=== PATIENT | male | born 1980 | race Caucasian/White ===

== ENCOUNTER 2018-08-02 10:16 | Emergency (ER) | payer OTHER ==
[2018-08-02 10:21] VITALS: RESP 18; TEMP 98.8
[2018-08-02] MEDS ORDERED: SODIUM CHLORIDE 0.9% 1,000 ML IV ONE (10:50)
[2018-08-02] MEDS ORDERED: DOCUSATE 100 MG CAP PO STA (10:51)
[2018-08-02] MEDS ORDERED: HYDROCORTISONE SUPPOSITORY 25 MG SUPP RECTAL STA (10:51)
[2018-08-02 11:14] LABS: Basophils % (A) 1 %; Eosinophils # (A) 0.1 k/uL (0-0.7); Eosinophils % (A) 2 %; HGB 12.4 gm/dL (13.0-17.5); Hypochromasia Slight; Lymphocytes # (A) 0.8 k/uL (1.0-4.8); Lymphocytes % (A) 10 %; MCH 24.7 pg (25.0-35.0); MCV 79.6 fL (80.0-100.0); Mean Platelet Volume 9.3; Monocytes # (A) 0.6 k/uL (0-1.0); Monocytes % (A) 7 %; Neutrophils # (A) 6.1 k/uL (1.3-7.7); Neutrophils % (A) 79 %; Platelet Count 219 k/uL (150-450); RBC 5.02 m/uL (4.30-5.90); RDW 12.9 % (11.5-15.5); WBC 7.8 k/uL (3.8-10.6)
[2018-08-02 11:21] LABS: ALT 47 U/L (21-72); AST 43 U/L (17-59); Albumin 4.6 g/dL (3.5-5.0); Alkaline Phosphatase 116 U/L (38-126); Anion Gap 12 mmol/L; Blood Urea Nitrogen 14 mg/dL (9-20); Carbon Dioxide 26 mmol/L (22-30); Chloride 102 mmol/L (98-107); Glucose 115 mg/dL (74-99); Sodium 140 mmol/L (137-145); Total Bilirubin 0.7 mg/dL (0.2-1.3); Total Protein 7.9 g/dL (6.3-8.2)
--- NOTE | 2018-08-02 11:49 | XR ---
EXAMINATION TYPE: XR KUB DATE OF EXAM: 08/02/2018 CLINICAL DATA: 38-year-old male with constipation, [facility] COMPARISON: None FINDINGS: Lung bases are clear. No evidence for free intraperitoneal air. No dilated small bowel or air-fluid levels. Scattered air and stool seen throughout the colon extendi ng distally into the rectum. Scattered mild to moderate stool. No suspicious calcifications identified. IMPRESSION: Scattered mild to moderate stool. No evidence of bowel obstruction or free intraperitoneal air.
--- NOTE | 2018-08-02 12:20 | ED ---
General Adult HPI - General Chief complaint: GI Bleed Stated complaint: RECTAL BLEEDING AND PAIN Time Seen by Provider: 08/02/18 10:21 Source: patient Mode of arrival: ambulatory Limitations: no limitations - History of Present Illness Initial comments: 38-year-old male with no past medical history presenting today for chief complaint of rectal bleeding and pain. Patient states he had rectal pain with bowel movements of January with mild bleeding. Patient states recently the pain has increased. Patient states at times he passed this clot. He states he has significant burning and pain with each bowel movement. Patient states this has caused him to be hesitant to have a bowel movement and experience constipation. Patient denies any urinary retention, dysuria or urgency. T or hematuria. Patient denies any fever or chills night sweats. Patient denies any abdominal pain. Patient denies history of chronc/UC. Remaining review of systems negative, Patient denies any recent cold intolerance, shortness of breath, chest pain, back pain, nausea or vomiting, numbness or tingling, diarrhea, headaches or visual changes, or any other complaints. - Related Data Previous Rx's Medication Instructions Recorded Docusate [Colace] 100 mg PO DAILY 20 Days #20 capsule 08/02/18 Phenylephrine HCl/[place] Butter 1 each RC DAILY PRN 20 Days #20 08/02/18 [Preparation H Suppository] supp.rect Psyllium Husk 100% [Metamucil 6 gm PO DAILY PRN 10 Days #10 08/02/18 Packet] packet Allergies Allergy/AdvReac Type Severity Reaction Status Date / Time codeine AdvReac Nausea & Verified 08/02/18 10:40 Vomiting Review of Systems ROS Statement: Those systems with pertinent positive or pertinent negative responses have been documented in the HPI. ROS Other: All systems not noted in ROS Statement are negative. Past Medical History Past Medical History: No Reported History History of Any Multi-Drug Resistant Organisms: None Reported Past Surgical History: Orthopedic Surgery Additional Past Surgical History / Comment(s): right foot surgery, left hand surgery Past Psychological History: No Psychological Hx Reported Smoking Status: Never smoker Past Alcohol Use History: Daily Past Drug Use History: None Reported General Exam - General Exam Comments Initial Comments: General: The patient is awake and alert, in no distress, and does not appear acutely ill. Eye: Pupils are equal, round and reactive to light, extra-ocular movements are intact. No nystagmus. There is normal conjunctiva bilaterally. No signs of icterus. Ears, nose, mouth and throat: There are moist mucous membranes and no oral lesions. Neck: The neck is supple, there is no tenderness or JVD. Cardiovascular: There is a regular rate and rhythm. No murmur, rub or gallop is appreciated. Respiratory: Lungs are clear to auscultation, respirations are non-labored, breath sounds are equal. No wheezes, stridor, rales, or rhonchi. Gastrointestinal: Soft, non-distended, non-tender abdomen without masses or organomegaly noted. There is no rebound or guarding present. No CVA tenderness. Bowel sounds are unremarkable. Very large external and internal hemorrhoids palpable on examination. Tender to palpation. No prolapsed hemorrhoids. No glynn blood. Musculoskeletal: Normal ROM, no tenderness. Strength 5/5. Sensation intact. Pulses equal bilaterally 2+. Neurological: A&O x 3. CN II-XII intact, There are no obvious motor or sensory deficits. Coordination appears grossly intact. Speech is normal. Skin: Skin is warm and dry and no rashes or lesions are noted. Psychiatric: Cooperative, appropriate mood & affect, normal judgment. Limitations: no limitations Course Vital Signs 08/02/18 08/02/18 10:18 12:46 Temperature 98.8 F 98.8 F Pulse Rate 118 H 91 Respiratory 18 18 Rate Blood Pressure 146/85 134/76 O2 Sat by Pulse 98 98 Oximetry Medical Decision Making - Medical Decision Making Physical exam revealed hemorrhoids. Patient given symptomatically treatment in the emergency department, he states this helped alleviate symptoms. Patient hemoglobin stable. No glynn blood on physical examination. No fecal impaction/obstruction on KUB. I discussed case with attending provider Dr. Jacinto at this time for patient is stable for discharge with general surgery follow-up outpatient. Patient is agreeable plan denies questions at this time. Patient discharged. - Lab Data Result diagrams: 08/02/18 10:55 08/02/18 10:55 Lab Results 08/02/18 08/02/18 Range/Units 10:55 10:55 WBC 7.8 (3.8-10.6) k/uL RBC 5.02 (4.30-5.90) m/uL Hgb 12.4 L (13.0-17.5) gm/dL Hct 40.0 (39.0-53.0) % MCV 79.6 L (80.0-100.0) fL MCH 24.7 L (25.0-35.0) pg MCHC 31.0 (31.0-37.0) g/dL RDW 12.9 (11.5-15.5) % Plt Count 219 (150-450) k/uL Neutrophils % 79 % Lymphocytes % 10 % Monocytes % 7 % Eosinophils % 2 % Basophils % 1 % Neutrophils # 6.1 (1.3-7.7) k/uL Lymphocytes # 0.8 L (1.0-4.8) k/uL Monocytes # 0.6 (0-1.0) k/uL Eosinophils # 0.1 (0-0.7) k/uL Basophils # 0.0 (0-0.2) k/uL Hypochromasia Slight Sodium 140 (137-145) mmol/L Potassium 5.0 (3.5-5.1) mmol/L Chloride 102 (98-107) mmol/L Carbon Dioxide 26 (22-30) mmol/L Anion Gap 12 mmol/L BUN 14 (9-20) mg/dL Creatinine 0.60 L (0.66-1.25) mg/dL Est GFR (CKD-EPI)AfAm >90 (>60 ml/min/1.73 sqM) Est GFR (CKD-EPI)NonAf >90 (>60 ml/min/1.73 sqM) Glucose 115 H (74-99) mg/dL Calcium 10.0 (8.4-10.2) mg/dL Total Bilirubin 0.7 (0.2-1.3) mg/dL AST 43 (17-59) U/L ALT 47 (21-72) U/L Alkaline Phosphatase 116 (38-126) U/L Total Protein 7.9 (6.3-8.2) g/dL Albumin 4.6 (3.5-5.0) g/dL Disposition Clinical Impression: Hemorrhoids Disposition: HOME SELF-CARE Condition: Good Instructions (If sedation given, give patient instructions): Hemorrhoids (ED) Additional Instructions: Please use medication as discussed, use phsyillum only 1-2 days a week as discussed, docusate daily. Please follow-up with family doctor in the next 2 days for repeat CBC, please follow-up with Gen. surgery as discussed within the next week. Please return to emergency room if the symptoms increase or worsen or for any other concerns. Prescriptions: Docusate [Colace] 100 mg PO DAILY 20 Days #20 capsule Psyllium Husk 100% [Metamucil Packet] 6 gm PO DAILY PRN 10 Days #10 packet PRN Reason: Constipation Phenylephrine HCl/[place] Butter [Preparation H Suppository] 1 each RC DAILY PRN 20 Days #20 supp.rect PRN Reason: Pain Is patient prescribed a controlled substance at d/c from ED?: No Referrals: Eric Montgomery DO [Primary Care Provider] - 1-2 days Lee Arzate MD [Medical Doctor] - 1-2 days Time of Disposition: 12:17
[2018-08-02 12:49] VITALS: BP 134/76; PULSE 91
== END 2018-08-02 12:46 | disposition home or self-care (01) ==
LOC: EC 10:16
DX: K64.4 Residual hemorrhoidal skin tags (principal); K64.8 Other hemorrhoids; Z88.5 Allergy status to narcotic agent
CPT/HCPCS: 36415; 74018; 80053; 85025; 96360; 96361; 99283

== ENCOUNTER 2018-08-06 10:24 | Inpatient (IN) | payer OTHER ==
--- NOTE | 2018-08-06 11:07 | ED ---
General Adult HPI - General Chief complaint: Skin/Abscess/Foreign Body Stated complaint: rectal bleeding Time Seen by Provider: 08/06/18 11:07 Source: patient, family Mode of arrival: ambulatory Limitations: no limitations - History of Present Illness Initial comments: The patient is a 38-year-old male who presents to the emergency department with complaint of rectal bleeding. He was seen in the emergency department several days ago for similar. He was diagnosed with hemorrhoids and sent home with Preparation H suppositories and a stool softener. States he's been taking the medications at home however his symptoms haven't improved. He admits he has had more bleeding with the rectal suppositories. His bleeding has gotten heavier. It is bright red with clots. It is present within the toilet bowl as well as when he wipes. Admits that the blood loss is making him feel lightheaded. He admits to significant rectal pain. He is hesitent to have a bowel movement as it does hurt significantly. He denies any melanotic stools. No report of diarrhea or constipation. No history of similar in the past. Denies history of ulcerative colitis or Crohn's disease in family members. He denies any medical history. No report of any fevers or chills. Denies any abdominal pain. Admits to suprapubic fullness. No changes in his urination to include dysuria, hematuria or difficulty voiding. No penile discharge or concern for sexually transmitted infections. He denies any weight loss. No early satiety. History of peptic ulcer disease. There are no other alleviating, precipitating or modifying factors. - Related Data Home Medications Medication Instructions Recorded Confirmed Phenylephrine HCl/[place] Butter 1 supp RECTAL DAILY PRN 08/06/18 08/06/18 [Preparation H Suppository] Previous Rx's Medication Instructions Recorded Docusate [Colace] 100 mg PO DAILY 20 Days #20 capsule 08/02/18 Psyllium Husk 100% [Metamucil 6 gm PO DAILY PRN 10 Days #10 08/02/18 Packet] packet Allergies Allergy/AdvReac Type Severity Reaction Status Date / Time codeine AdvReac Nausea & Verified 08/06/18 10:55 Vomiting Review of Systems ROS Statement: Those systems with pertinent positive or pertinent negative responses have been documented in the HPI. ROS Other: All systems not noted in ROS Statement are negative. Past Medical History Past Medical History: No Reported History History of Any Multi-Drug Resistant Organisms: None Reported Past Surgical History: Orthopedic Surgery Additional Past Surgical History / Comment(s): right foot surgery, left hand surgery Past Psychological History: No Psychological Hx Reported Smoking Status: Never smoker Past Alcohol Use History: Daily Past Drug Use History: None Reported General Exam Limitations: no limitations General appearance: alert, in no apparent distress Head exam: Present: atraumatic, normocephalic, normal inspection Eye exam: Present: normal appearance, PERRL, EOMI. Absent: scleral icterus, conjunctival injection, periorbital swelling Pupils: Present: normal accommodation ENT exam: Present: normal exam, mucous membranes moist Neck exam: Present: normal inspection. Absent: tenderness, meningismus, lymphadenopathy Respiratory exam: Present: normal lung sounds bilaterally. Absent: respiratory distress, wheezes, rales, rhonchi, stridor Cardiovascular Exam: Present: regular rate, normal rhythm, normal heart sounds. Absent: systolic murmur, diastolic murmur, rubs, gallop, clicks GI/Abdominal exam: Present: soft, tenderness, normal bowel sounds, other (Mild tenderness in the suprapubic region) Rectal exam: Present: normal rectal tone, heme (+) stool, bloody stool, hemorrhoids, tenderness. Absent: fecal impaction exam: Present: normal inspection Extremities exam: Present: normal inspection, full ROM, normal capillary refill. Absent: tenderness, pedal edema, joint swelling, calf tenderness Back exam: Present: normal inspection Neurological exam: Present: alert, oriented X3, CN II-XII intact Psychiatric exam: Present: normal affect, normal mood Skin exam: Present: warm, dry, intact, normal color. Absent: rash Course Vital Signs 08/06/18 08/06/18 08/06/18 10:33 12:30 14:20 Temperature 98.2 F Pulse Rate 104 H 88 96 Respiratory 18 16 16 Rate Blood Pressure 138/85 126/87 141/92 O2 Sat by Pulse 100 99 100 Oximetry Medical Decision Making - Medical Decision Making The patient was seen by myself. I did obtain IV access. He was offered something for pain control however he refused. Rectal exam is performed which demonstrates no signs of external hemorrhoids. No perirectal abscess identifie d. I did recommend repeat laboratory studies. I also recommended CT of the patient's abdomen and pelvis. Upon return of the results I did discuss them with the patient and his significant other at bedside. He did have a drop in his hemoglobin. The CAT scan of his abdomen and pelvis reveals a large rectosigmoid mass with liver metastasis. I did recommend admission to the hospital for evaluation by a surgeon. Patient did agree to this. Patient was admitted to Dr. Knight. I did call discuss case with him and he did accept admission. I consulted Dr. Arzate. The patient remained in stable condition awaiting transport to floor. - Differential Diagnosis Rectosigmoid mass. Liver lesions. Hematochezia - Lab Data Result diagrams: 08/06/18 20:23 08/06/18 11:40 Lab Results 08/06/18 08/06/18 08/06/18 Range/Units 11:29 11:40 11:40 WBC 6.0 (3.8-10.6) k/uL RBC 4.65 (4.30-5.90) m/uL Hgb 11.6 L (13.0-17.5) gm/dL Hct 37.2 L (39.0-53.0) % MCV 80.0 (80.0-100.0) fL MCH 25.0 (25.0-35.0) pg MCHC 31.3 (31.0-37.0) g/dL RDW 12.5 (11.5-15.5) % Plt Count 351 (150-450) k/uL Neutrophils % 74 % Lymphocytes % 12 % Monocytes % 8 % Eosinophils % 4 % Basophils % 1 % Neutrophils # 4.4 (1.3-7.7) k/uL Lymphocytes # 0.7 L (1.0-4.8) k/uL Monocytes # 0.5 (0-1.0) k/uL Eosinophils # 0.2 (0-0.7) k/uL Basophils # 0.0 (0-0.2) k/uL Hypochromasia Marked Poikilocytosis Slight PT 9.9 (9.0-12.0) sec INR 0.9 (<1.2) APTT 25.7 (22.0-30.0) sec Sodium (137-145) mmol/L Potassium (3.5-5.1) mmol/L Chloride (98-107) mmol/L Carbon Dioxide (22-30) mmol/L Anion Gap mmol/L BUN (9-20) mg/dL Creatinine (0.66-1.25) mg/dL Est GFR (CKD-EPI)AfAm (>60 ml/min/1.73 sqM) Est GFR (CKD-EPI)NonAf (>60 ml/min/1.73 sqM) Glucose (74-99) mg/dL Calcium (8.4-10.2) mg/dL Total Bilirubin (0.2-1.3) mg/dL AST (17-59) U/L ALT (21-72) U/L Alkaline Phosphatase (38-126) U/L Total Protein (6.3-8.2) g/dL Albumin (3.5-5.0) g/dL Urine Color Urine Appearance (Clear) Urine pH (5.0-8.0) Ur Specific [place] (1.001-1.035) Urine Protein (Negative) Urine Glucose (UA) (Negative) Urine Ketones (Negative) Urine Blood (Negative) Urine Nitrite (Negative) Urine Bilirubin (Negative) Urine Urobilinogen (<2.0) mg/dL Ur Leukocyte Esterase (Negative) Stool Occult Blood Positive (Negative) 08/06/18 08/06/18 Range/Units 11:40 11:40 WBC (3.8-10.6) k/uL RBC (4.30-5.90) m/uL Hgb (13.0-17.5) gm/dL Hct (39.0-53.0) % MCV (80.0-100.0) fL MCH (25.0-35.0) pg MCHC (31.0-37.0) g/dL RDW (11.5-15.5) % Plt Count (150-450) k/uL Neutrophils % % Lymphocytes % % Monocytes % % Eosinophils % % Basophils % % Neutrophils # (1.3-7.7) k/uL Lymphocytes # (1.0-4.8) k/uL Monocytes # (0-1.0) k/uL Eosinophils # (0-0.7) k/uL Basophils # (0-0.2) k/uL Hypochromasia Poikilocytosis PT (9.0-12.0) sec INR (<1.2) APTT (22.0-30.0) sec Sodium 138 (137-145) mmol/L Potassium 4.6 (3.5-5.1) mmol/L Chloride 103 (98-107) mmol/L Carbon Dioxide 26 (22-30) mmol/L Anion Gap 9 mmol/L BUN 12 (9-20) mg/dL Creatinine 0.59 L (0.66-1.25) mg/dL Est GFR (CKD-EPI)AfAm >90 (>60 ml/min/1.73 sqM) Est GFR (CKD-EPI)NonAf >90 (>60 ml/min/1.73 sqM) Glucose 111 H (74-99) mg/dL Calcium 9.5 (8.4-10.2) mg/dL Total Bilirubin 0.5 (0.2-1.3) mg/dL AST 23 (17-59) U/L ALT 40 (21-72) U/L Alkaline Phosphatase 109 (38-126) U/L Total Protein 6.9 (6.3-8.2) g/dL Albumin 4.1 (3.5-5.0) g/dL Urine Color Yellow Urine Appearance Clear (Clear) Urine pH 6.5 (5.0-8.0) Ur Specific [place] 1.014 (1.001-1.035) Urine Protein Negative (Negative) Urine Glucose (UA) Negative (Negative) Urine Ketones Negative (Negative) Urine Blood Negative (Negative) Urine Nitrite Negative (Negative) Urine Bilirubin Negative (Negative) Urine Urobilinogen <2.0 (<2.0) mg/dL Ur Leukocyte Esterase Negative (Negative) Stool Occult Blood (Negative) - Radiology Data Radiology results: report reviewed CT of the abdomen and pelvis demonstrates a large rectosigmoid mass with liver lesions concerning for metastasis Disposition Clinical Impression: Hematochezia Disposition: ADMITTED IP TO THIS [facility] Condition: Stable Is patient prescribed a controlled substance at d/c from ED?: No Decision to Admit Reason: Admit from EC Decision Date: 08/06/18 Decision Time: 13:00
[2018-08-06 12:10] LABS: ALT 40 U/L (21-72); AST 23 U/L (17-59); Albumin 4.1 g/dL (3.5-5.0); Alkaline Phosphatase 109 U/L (38-126); Anion Gap 9 mmol/L; Blood Urea Nitrogen 12 mg/dL (9-20); Calcium 9.5 mg/dL (8.4-10.2); Carbon Dioxide 26 mmol/L (22-30); Chloride 103 mmol/L (98-107); Glucose 111 mg/dL (74-99); Potassium 4.6 mmol/L (3.5-5.1); Sodium 138 mmol/L (137-145); Total Bilirubin 0.5 mg/dL (0.2-1.3); Total Protein 6.9 g/dL (6.3-8.2)
[2018-08-06 12:12] LABS: Basophils % (A) 1 %; Eosinophils # (A) 0.2 k/uL (0-0.7); Eosinophils % (A) 4 %; HCT 37.2 % (39.0-53.0); HGB 11.6 gm/dL (13.0-17.5); Hypochromasia Marked; Lymphocytes # (A) 0.7 k/uL (1.0-4.8); Lymphocytes % (A) 12 %; MCHC 31.3 g/dL (31.0-37.0); Mean Platelet Volume 8.1; Monocytes # (A) 0.5 k/uL (0-1.0); Monocytes % (A) 8 %; Neutrophils # (A) 4.4 k/uL (1.3-7.7); Neutrophils % (A) 74 %; Platelet Count 351 k/uL (150-450); Poikilocytosis Slight; RBC 4.65 m/uL (4.30-5.90); RDW 12.5 % (11.5-15.5)
[2018-08-06 12:20] LABS: INR 0.9 (<1.2); Partial Thromboplastin Time 25.7 sec (22.0-30.0); Prothrombin Time 9.9 sec (9.0-12.0)
[2018-08-06 12:30] LABS: Appearance,Urine Clear (Clear); Bilirubin,Urine Negative (Negative); Blood,Urine Negative (Negative); Color,Urine Yellow; Glucose,Urine (UA) Negative (Negative); Ketones,Urine Negative (Negative); Leukocyte Esterase,Urine Negative (Negative); Nitrite,Urine Negative (Negative); PH, Urine 6.5 (5.0-8.0); Protein,Urine Negative (Negative); Specific Gravity,Urine 1.014 (1.001-1.035); Urobilinogen,Urine <2.0 mg/dL (<2.0)
--- NOTE | 2018-08-06 12:46 | CT ---
EXAMINATION TYPE: CT abdomen pelvis w con DATE OF EXAM: 08/06/2018 COMPARISON: None INDICATION: Rectal bleeding on and off x months. DLP: 671.7 mGycm, Automated exposure control for dose reduction was used. CONTRAST: 100 mL of Isovue 300. Study performed without Oral Contrast TECHNIQUE: Axial images were obtained from above the diaphragm to the pubic rami in the axial plane a t 5 mm thick sections. Reconstructed images are reviewed on the computer in the coronal plane. FINDINGS: Limited CT sections are obtained the lung bases. The lung bases are clear. CT ABDOMEN: Liver: There are multiple scattered hypodensities throughout the left and right lobes liver. A larger ill-defined lesions including a posterior right lobe liver lesion measuring 3.1 cm, series 201 image 18 and the superior right lobe liver lesion measuring 2.5 cm. Series 201 image 11. Findings are very suggestive for metastatic disease. Spleen: Normal Pancreas: Normal Adrenal glands: The adrenal glands are normal. Gallbladder: Normal Kidneys: No masses are evident. No hydronephrosis is present. No cysts are present. Delayed images were obtained through the kidneys, which remain unremarkable. Aorta: Normal Inferior vena cava: Normal. CT PELVIS: Loops of bowel within the abdomen and upper pelvis are normal. Study is performed without oral co ntrast limiting bowel evaluation. There is an ill-defined hypodense area extending from the anterior lateral aspect of the rectum. This extends towards and may be effacing the seminal vesicles. Seminal vesicles as a source for this abnormality is considered less likely. Findings appear suggestive for a rectosigmoid neoplasm. This extends towards the distal rectum suggesting rectal cancer. This measure s approximately 2.7 cm in diameter. Appendix: Normal as visualized. Urinary bladder: Normal. Genitourinary structures: Prostate is visualized appears normal. Seminal vesicles appear displaced on the right from the mass which appears to be emanating from the colon. The border is indistinct and i nvolvement of the right seminal vesicle is not excluded. Osseous structures: No suspicious lytic or sclerotic lesions. Degenerative disc changes within the wood mbar spine. IMPRESSIONS: 1. Mass which appears to be extending from the rectosigmoid junction towards the rectum which may ef facement of the seminal vesicle on the right suspicious for neoplasm. 2. Multiple hypodensities scattered throughout the liver suspicious for metastatic disease. 3. Report was called to Dr. Aly by Dr. Weber by telephone [phone] [phone] 08/06/2018
[2018-08-06] MEDS ORDERED: NALOXONE 0.4 MG/ML 1 ML VIAL IV PRN (13:24)
[2018-08-06 16:04] VITALS: BMI 24.1
[2018-08-06] MEDS ORDERED: KETOROLAC 30 MG/ML 1 ML VIAL IVP STA (16:11)
[2018-08-06] MEDS ORDERED: ACETAMINOPHEN TAB 500 MG TAB PO PRN (16:12)
[2018-08-06] MEDS ORDERED: MELATONIN 3 MG TABLET PO PRN (16:13)
[2018-08-06] MEDS ORDERED: ONDANSETRON 4 MG/2 ML VIAL IVP PRN (16:13)
[2018-08-06] MEDS: PANTOPRAZOLE 40 MG/10 ML VIAL IVP SCH (16:26)
[2018-08-06] MEDS ORDERED: PEG 3350-NA SULF,BICARB,CL/KCL 4,000 ML BOTTLE PO ONE (16:32)
[2018-08-06] MEDS: LACTATED RINGERS 1,000 ML IV SCH (20:40)
[2018-08-06 20:41] LABS: HCT 36.8 % (39.0-53.0); HGB 11.4 gm/dL (13.0-17.5); Hypochromasia Marked; MCH 25.1 pg (25.0-35.0); MCHC 30.9 g/dL (31.0-37.0); MCV 81.3 fL (80.0-100.0); Mean Platelet Volume 7.3; Platelet Count 400 k/uL (150-450); Poikilocytosis Slight; RBC 4.53 m/uL (4.30-5.90); RDW 12.6 % (11.5-15.5); WBC 7.2 k/uL (3.8-10.6)
[2018-08-06] MEDS: KETOROLAC 30 MG/ML 1 ML VIAL IVP SCH (23:21)
[2018-08-07] MEDS: KETOROLAC 30 MG/ML 1 ML VIAL IVP SCH ×4 (06:30→23:47)
[2018-08-07 08:08] LABS: Basophils % (A) 1 %; Eosinophils # (A) 0.3 k/uL (0-0.7); Eosinophils % (A) 5 %; HCT 35.2 % (39.0-53.0); HGB 10.8 gm/dL (13.0-17.5); Hypochromasia Marked; Lymphocytes # (A) 0.4 k/uL (1.0-4.8); Lymphocytes % (A) 7 %; MCH 24.3 pg (25.0-35.0); MCHC 30.6 g/dL (31.0-37.0); MCV 79.6 fL (80.0-100.0); Mean Platelet Volume 7.4; Monocytes # (A) 0.4 k/uL (0-1.0); Monocytes % (A) 7 %; Neutrophils # (A) 5.4 k/uL (1.3-7.7); Neutrophils % (A) 81 %; Platelet Count 351 k/uL (150-450); Poikilocytosis Slight; RBC 4.43 m/uL (4.30-5.90); RDW 12.5 % (11.5-15.5); WBC 6.6 k/uL (3.8-10.6)
[2018-08-07 08:13] LABS: Anion Gap 9 mmol/L; Blood Urea Nitrogen 7 mg/dL (9-20); Calcium 9.5 mg/dL (8.4-10.2); Carbon Dioxide 28 mmol/L (22-30); Chloride 102 mmol/L (98-107); Glucose 106 mg/dL (74-99); Potassium 4.6 mmol/L (3.5-5.1); Sodium 139 mmol/L (137-145)
[2018-08-07] MEDS: PANTOPRAZOLE 40 MG/10 ML VIAL IVP SCH (09:11)
[2018-08-07] MEDS ORDERED: PROPOFOL 10 MG/ML 20 ML VIAL IV ONE (11:22)
[2018-08-07] MEDS ORDERED: MIDAZOLAM 2 MG/2 ML VIAL ONE (11:22)
[2018-08-07] MEDS ORDERED: LIDOCAINE 1% INJ 10MG/ML (20 ML MDV) ONE (11:22)
[2018-08-07] MEDS ORDERED: fentaNYL (PF) 50 MCG/ML 2 ML AMP ONE (11:22)
[2018-08-07] MEDS ORDERED: LACTATED RINGERS 1,000 ML IV ONE (11:23)
--- NOTE | 2018-08-07 11:24 | P.GSCN ---
History of Present Illness Consult date: 08/06/18 Reason for Consult: Rectal bleeding History of present illness: This is a 38-year-old male who presents who was admitted to the hospital for wo rkup of rectal bleeding. Patient states that he has had rectal bleeding since January. Patient actually visited the emergency room last week for rectal bleeding. The scheduled to see Dr. Montgomery last week. Patient had increased bleeding and pain. He presented back to the emergency room. Patient awake CAT scan was found the show evidence of a rectal mass and possible liver mass. I've asked see her regarding colonoscopy. Past Medical History Past Medical History: No Reported History History of Any Multi-Drug Resistant Organisms: None Reported Past Surgical History: Orthopedic Surgery Additional Past Surgical History / Comment(s): right foot surgery, left hand surgery Past Psychological History: No Psychological Hx Reported Smoking Status: Never smoker Past Alcohol Use History: Daily Past Drug Use History: None Reported Medications and Allergies Home Medications Medication Instructions Recorded Confirmed Type Docusate [Colace] 100 mg PO DAILY 20 Days #20 capsule 08/02/18 08/06/18 Rx Psyllium Husk 100% [Metamucil 6 gm PO DAILY PRN 10 Days #10 08/02/18 08/06/18 Rx Packet] packet Phenylephrine HCl/[place] Butter 1 supp RECTAL DAILY PRN 08/06/18 08/06/18 History [Preparation H Suppository] Allergies Allergy/AdvReac Type Severity Reaction Status Date / Time codeine AdvReac Nausea & Verified 08/06/18 10:55 Vomiting Surgical - Exam Vital Signs Temp Pulse Resp BP Pulse Ox 98.2 F 104 H 18 138/85 100 08/06/18 10:33 08/06/18 10:33 08/06/18 10:33 08/06/18 10:33 08/06/18 10:33 - General well developed, well nourished - Eyes PERRL - ENT normal pinna - Neck no masses - Respiratory normal expansion - Cardiovascular Rhythm: regular - Abdomen Abdomen: soft, non tender Results - Labs 08/07/18 07:32 08/07/18 07:32 Abnormal Lab Results - Last 24 Hours (Table) 08/06/18 08/06/18 08/06/18 Range/Units 11:40 11:40 20:23 Hgb 11.6 L 11.4 L (13.0-17.5) gm/dL Hct 37.2 L 36.8 L (39.0-53.0) % MCV (80.0-100.0) fL MCH (25.0-35.0) pg MCHC 30.9 L (31.0-37.0) g/dL Lymphocytes # 0.7 L (1.0-4.8) k/uL BUN (9-20) mg/dL Creatinine 0.59 L (0.66-1.25) mg/dL Glucose 111 H (74-99) mg/dL 08/07/18 08/07/18 Range/Units 07:32 07:32 Hgb 10.8 L (13.0-17.5) gm/dL Hct 35.2 L (39.0-53.0) % MCV 79.6 L (80.0-100.0) fL MCH 24.3 L (25.0-35.0) pg MCHC 30.6 L (31.0-37.0) g/dL Lymphocytes # 0.4 L (1.0-4.8) k/uL BUN 7 L (9-20) mg/dL Creatinine 0.60 L (0.66-1.25) mg/dL Glucose 106 H (74-99) mg/dL Diabetes panel 08/06/18 08/07/18 Range/Units 11:40 07:32 Sodium 138 139 (137-145) mmol/L Potassium 4.6 4.6 (3.5-5.1) mmol/L Chloride 103 102 (98-107) mmol/L Carbon Dioxide 26 28 (22-30) mmol/L BUN 12 7 L (9-20) mg/dL Creatinine 0.59 L 0.60 L (0.66-1.25) mg/dL Glucose 111 H 106 H (74-99) mg/dL Calcium 9.5 9.5 (8.4-10.2) mg/dL AST 23 (17-59) U/L ALT 40 (21-72) U/L Alkaline Phosphatase 109 (38-126) U/L Total Protein 6.9 (6.3-8.2) g/dL Albumin 4.1 (3.5-5.0) g/dL Calcium panel 08/06/18 08/07/18 Range/Units 11:40 07:32 Calcium 9.5 9.5 (8.4-10.2) mg/dL Albumin 4.1 (3.5-5.0) g/dL Pituitary panel 08/06/18 08/07/18 Range/Units 11:40 07:32 Sodium 138 139 (137-145) mmol/L Potassium 4.6 4.6 (3.5-5.1) mmol/L Chloride 103 102 (98-107) mmol/L Carbon Dioxide 26 28 (22-30) mmol/L BUN 12 7 L (9-20) mg/dL Creatinine 0.59 L 0.60 L (0.66-1.25) mg/dL Glucose 111 H 106 H (74-99) mg/dL Calcium 9.5 9.5 (8.4-10.2) mg/dL Adrenal panel 08/06/18 08/07/18 Range/Units 11:40 07:32 Sodium 138 139 (137-145) mmol/L Potassium 4.6 4.6 (3.5-5.1) mmol/L Chloride 103 102 (98-107) mmol/L Carbon Dioxide 26 28 (22-30) mmol/L BUN 12 7 L (9-20) mg/dL Creatinine 0.59 L 0.60 L (0.66-1.25) mg/dL Glucose 111 H 106 H (74-99) mg/dL Calcium 9.5 9.5 (8.4-10.2) mg/dL Total Bilirubin 0.5 (0.2-1.3) mg/dL AST 23 (17-59) U/L ALT 40 (21-72) U/L Alkaline Phosphatase 109 (38-126) U/L Total Protein 6.9 (6.3-8.2) g/dL Albumin 4.1 (3.5-5.0) g/dL Assessment and Plan Assessment: Rectal bleeding for 7 months. 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 Patient will undergo colonoscopy..
--- NOTE | 2018-08-07 11:31 | P.HPIM ---
History of Present Illness H&P Date: 08/07/18 Chief Complaint: Rectal bleeding this is a very pleasant 38-year-old gentleman with no significant pastmedical history comes in with above-mentioned complaints. Patient says that he's been having problems with bleeding here and there since January 2018 but since one week he's been having more rectal bleeding which was bright red in color. He came into the ER week ago and he was told that he has hemorrhoids and he was sent home on hemorrhoidal cream. He says that his symptoms did not subside and his rectal bleeding continued so he came into the ER for further evaluation and management. He says that he's been noticing that his stool diameter has reducedand he has burning pain in his rectal area. He otherwise does not complain of any abdominal pain, no nausea and vomiting, no diarrhea constipation, no fever no chills, no tingling numbness of the extremities, no chest pain racing heart, no cough no shortness breath, no tingling numbness on in the extremities, no itch or rash. ER course-Temperature 98.1 pulse 96 respiration 18 blood pressure 141/92satting 98% on room air. Labwork was done which showed WBC 7.2 hemoglobin 11.4 sodium 1:30 potassium 4.6 BUN [address] of the abdomen showsmass appears to be extending from the rectosigmoid junction towards the rectum suspicious for neoplasm, multiple hypodensities scattered throughout the liver suspicious for metastatic disease. Patient was kept nothing by mouth, general surgery was consulted and patient was admitted to the hospitalist service for further evaluation and management Review of Systems All systems: negative Past Medical History Past Medical History: No Reported History History of Any Multi-Drug Resistant Organisms: None Reported Past Surgical History: Orthopedic Surgery Additional Past Surgical History / Comment(s): right foot surgery, left hand surgery Past Psychological History: No Psychological Hx Reported Smoking Status: Never smoker Past Alcohol Use History: Daily Past Drug Use History: None Reported Medications and Allergies Home Medications Medication Instructions Recorded Confirmed Type Docusate [Colace] 100 mg PO DAILY 20 Days #20 capsule 08/02/18 08/06/18 Rx Psyllium Husk 100% [Metamucil 6 gm PO DAILY PRN 10 Days #10 08/02/18 08/06/18 Rx Packet] packet Phenylephrine HCl/[place] Butter 1 supp RECTAL DAILY PRN 08/06/18 08/06/18 History [Preparation H Suppository] Allergies Allergy/AdvReac Type Severity Reaction Status Date / Time codeine AdvReac Nausea & Verified 08/06/18 10:55 Vomiting Physical Exam Vitals: Vital Signs Temp Pulse Pulse Resp BP BP Pulse Ox 08/07/18 10:57 98.1 F 89 18 112/72 98 08/07/18 04:35 98.1 F 89 18 112/72 98 08/06/18 21:22 98.1 F 97 16 145/95 98 08/06/18 16:00 84 16 08/06/18 15:27 98.3 F 84 160/93 99 08/06/18 14:20 96 16 141/92 100 08/06/18 12:30 88 16 126/87 99 Intake and Output 08/06/18 08/07/18 08/07/18 22:59 06:59 14:59 Intake Total 360 Balance 360 Intake: Oral 360 Other: # Voids 2 5 # Bowel Movements 2 5 On exam, alert and oriented x3. HEENT: Conjunctivae normal. eyes normal. NECK: No JVD. No thyroid enlargement. No LNs CARDIOVASCULAR: S1, S2 positive RESPIRATION: No rhonchi or crackles. No bronchial breathing. ABDOMEN: Soft, nontender . No guarding. no masses palpable. No ascites, No hepatosplenomegaly.Bowel sounds heard. LEGS: No edema. no swelling NERVOUS SYSTEM: Cranial N 2-12 grossly normal. Moves all 4 limbs. No focal deficits. No sensory deficit. No signs of cerebellar dysfucntion. Skin: no ulcer no rash Results CBC & Chem 7: 08/07/18 07:32 08/07/18 07:32 Labs: Abnormal Lab Results - Last 24 Hours (Table) 08/06/18 08/06/18 08/06/18 Range/Units 11:40 11:40 20:23 Hgb 11.6 L 11.4 L (13.0-17.5) gm/dL Hct 37.2 L 36.8 L (39.0-53.0) % MCV (80.0-100.0) fL MCH (25.0-35.0) pg MCHC 30.9 L (31.0-37.0) g/dL Lymphocytes # 0.7 L (1.0-4.8) k/uL BUN (9-20) mg/dL Creatinine 0.59 L (0.66-1.25) mg/dL Glucose 111 H (74-99) mg/dL 08/07/18 08/07/18 Range/Units 07:32 07:32 Hgb 10.8 L (13.0-17.5) gm/dL Hct 35.2 L (39.0-53.0) % MCV 79.6 L (80.0-100.0) fL MCH 24.3 L (25.0-35.0) pg MCHC 30.6 L (31.0-37.0) g/dL Lymphocytes # 0.4 L (1.0-4.8) k/uL BUN 7 L (9-20) mg/dL Creatinine 0.60 L (0.66-1.25) mg/dL Glucose 106 H (74-99) mg/dL Thrombosis Risk Factor Assmnt - Choose All That Apply Any of the Below Risk Factors Present?: No Other Risk Factors: No Other congenital or acquired thrombophilia - If yes, enter type in comment: No Thrombosis Risk Factor Assessment Level: Very Low Risk Assessment and Plan Assessment: - Rectal bleeding - Mass in the rectosigmoid junction - ANEMIA PROBABLY SECONDARY TO BLOOD LOSS - Liver masses suspicious for metastatic disease Plan - We will admit the patient MedSurg - We'll monitor hemoglobin - Patient is nothing by mouth - We will consult general surgery for possible colonoscopy versus excision of the mass versus other procedures deemed appropriate - We'll also consult hematology oncology - DVT and GI prophylaxis - We'll order for lab work in the morning - Expected length of stay more than 2 midnights - Patient is full code Time with Patient: Greater than 30
--- NOTE | 2018-08-07 11:38 | P.OP ---
Date of Procedure: 08/07/18 Preoperative Diagnosis: Rectal bleeding Rectal mass Postoperative Diagnosis: Obstructing rectal mass pathology pending Procedure(s) Performed: Colonoscopy Anesthesia: MAC Surgeon: Troy Llanos Pathology: other (Rectal mass) Condition: stable Disposition: PACU Description of Procedure: The patient's placed on the endoscopy table in the lateral position. He received IV sedation. Digital exam was attempted. There was a large obstructing mass right at the anus. The examining finger could not enter the rectum due to the mass. The mass is friable. At this point the colonoscope was placed in the anus. Several biopsies performed of the mass using the cold forcep. The mass was literally at the anus. The scope could not be advanced due to the obstructing mass. Scope was withdrawn for patient.
[2018-08-07] MEDS: LACTATED RINGERS 1,000 ML IV SCH (13:21)
[2018-08-07] MEDS ORDERED: RX INFO: IV CONTRAST WAS GIVEN 1 EACH MISC MISCELLANE PRN (16:41)
--- NOTE | 2018-08-07 17:09 | P.CONS ---
History of Present Illness - Reason for Consult Consult date: 08/07/18 recetal mass, liver lesions Requesting physician: Tuan Madsen - Chief Complaint rectal pain, BRBPR - History of Present Illness Mr. Ayala is a very pleasant 38-year-old male with a benign medical history, no surgeries other than from an injury, no medications on admission. Patient states a few weeks ago he noted a change in the caliber of his stool. The stool was thin, flat, only able to defecate small amounts at a time. This was accompanied with bright red blood per rectum. His symptoms progressed to include sharp pains, feeling like "razor blades" during stooling, has had to rock side to side to get the stool out at times, also he noted sensation is that he is sitting on a softball. He noted sweating at night is worse than it has bee n in the past, has had difficulty initiating an erection for a few months, denies significant weight loss, his appetite is good but, he is unable to eat due to his belly feeling for all the time. Denies fevers, chills, nausea, vomiting, abdominal pain, difficulty in breathing, shortness of breath, swelling in the legs, acute energy level changes, new or unusual pain. The only family history he is aware of his maternal grandfather with melanoma, he is checking with his mother to find out if there are any other cancers in the family. Patient has no personal history of cancer. He has 2 children Review of Systems 14 point review of systems is as stated in HPI Past Medical History Past Medical History: No Reported History History of Any Multi-Drug Resistant Organisms: None Reported Past Surgical History: Orthopedic Surgery Additional Past Surgical History / Comment(s): right foot surgery, left hand surgery Past Psychological History: No Psychological Hx Reported Smoking Status: Never smoker Past Alcohol Use History: Daily Past Drug Use History: None Reported Medications and Allergies Home Medications Medication Instructions Recorded Confirmed Type Docusate [Colace] 100 mg PO DAILY 20 Days #20 capsule 08/02/18 08/06/18 Rx Psyllium Husk 100% [Metamucil 6 gm PO DAILY PRN 10 Days #10 08/02/18 08/06/18 Rx Packet] packet Phenylephrine HCl/[place] Butter 1 supp RECTAL DAILY PRN 08/06/18 08/06/18 History [Preparation H Suppository] Allergies Allergy/AdvReac Type Severity Reaction Status Date / Time codeine AdvReac Nausea & Verified 08/06/18 10:55 Vomiting Physical Exam Vitals: Vital Signs Temp Pulse Resp BP Pulse Ox 08/07/18 12:48 98.2 F 82 18 122/66 100 08/07/18 10:57 98.1 F 89 18 112/72 98 08/07/18 04:35 98.1 F 89 18 112/72 98 08/06/18 21:22 98.1 F 97 16 145/95 98 Intake and Output 08/07/18 08/07/18 08/07/18 06:59 14:59 22:59 Intake Total 100 Balance 100 Intake: IV 100 Other: # Voids 5 4 # Bowel Movements 5 - Constitutional General appearance: average body habitus, cooperative, no acute distress - EENT Eyes: anicteric sclerae, EOMI, dentition normal ENT: hearing grossly normal, normal oropharynx - Neck Neck: no lymphadenopathy - Respiratory even and unlabored Respiratory: bilateral: CTA - Cardiovascular Rhythm: regular Heart sounds: normal: S1, S2 Abnormal Heart Sounds: no systolic murmur, no diastolic murmur, no rub, no S3 Gallop, no S4 Gallop, no click, no other leg Peripheral Edema: bilateral: None femoral Peripheral Pulses: bilateral: Normal - Gastrointestinal General gastrointestinal: no absent bowel sounds, no decreased bowel sounds, no distended, no hepatomegaly, no hyperactive bowel sounds, normal bowel sounds, no organomegaly, no rigid, no scaphoid, soft, no splenomegaly, no tenderness, no umbilical hernia, no ventral hernia - Integumentary Integumentary: no calor, no cellulitis, no cyanotic, no decreased turgor, no flushed, no jaundiced, normal, normal turgor, no pale, no rash, no ulcer - Neurologic Neurologic: CNII-XII intact - Musculoskeletal Musculoskeletal: strength equal bilaterally - Psychiatric Psychiatric: A&O x's 3, appropriate affect, intact judgment & insight Results CBC & Chem 7: 08/07/18 07:32 08/07/18 07:32 Labs: Abnormal Lab Results - Last 24 Hours (Table) 08/06/18 08/07/18 08/07/18 Range/Units 20:23 07:32 07:32 Hgb 11.4 L 10.8 L (13.0-17.5) gm/dL Hct 36.8 L 35.2 L (39.0-53.0) % MCV 79.6 L (80.0-100.0) fL MCH 24.3 L (25.0-35.0) pg MCHC 30.9 L 30.6 L (31.0-37.0) g/dL Lymphocytes # 0.4 L (1.0-4.8) k/uL BUN 7 L (9-20) mg/dL Creatinine 0.60 L (0.66-1.25) mg/dL Glucose 106 H (74-99) mg/dL CT scan - abdomen: report reviewed CT scan - pelvis: report reviewed Assessment and Plan (1) Rectal mass Narrative/Plan: Case was discussed with the patient and his . We reviewed what we know, pt has a rectal mass as well as liver lesions. We reviewed all these findings are very highly suspicious for malignancy. Patient is status post biopsy, pathology is pending. We discussed the complexity of this patient's case and the different modalities-i.e. surgery, radiation, chemotherapy-that have a role in his particular case. Dr. Lentz discussed the case with Dr. Llanos, case has also discussed with Dr. Conklin and Dr. Encarnacion, who has been consulted. We will wait for the doctors discussion and recommendations will be given at that time CT of the abdomen and pelvis describes a mass that appears to be extending from the rectosigmoid junction towards the rectum, possible effacement of the seminal vesicle on the right, multiple hypodensities in the liver. Plan at this time is for CT of the chest to complete staging. The patient will be evaluated by all doctors to determine the extent of obstruction before proceeding with any treatments as multiple treatment modalities are available the order in which they are implemented can impact outcome for patient. Will f/u in AM Current Visit: Yes Status: Acute Code(s): K62.9 - DISEASE OF ANUS AND RECTUM, UNSPECIFIED SNOMED Code(s): 282183345 (2) Microcytic hypochromic anemia Narrative/Plan: Anemia work up ordered Current Visit: Yes Status: Acute Priority: Medium Code(s): D50.9 - IRON DEFICIENCY ANEMIA, UNSPECIFIED SNOMED Code(s): 15338153 Time with Patient: Greater than 30 (45min spent, >50% counseling and coordinating care)
--- NOTE | 2018-08-07 19:08 | CT ---
EXAMINATION TYPE: CT chest w con DATE OF EXAM: 08/07/2018 COMPARISON: None HISTORY: Rectal mass and liver lesions. CT DLP: 228.1 mGycm Automated exposure control for dose reduction was used. CONTRAST: CT scan of the chest is performed with IV Contrast, patient injected with 100ml mL of Isovue 300. FINDINGS: The lungs are clear of infiltrate. There is no evidence of a pulmonary mass. Mediastinum is normal. T here is no evidence of thoracic aortic aneurysm or dissection. Ascending aorta measures 3.3 cm. Heart appears normal. There are no hilar masses. There is no pleural effusion. There are numerous variable sized hypodense masses throughout the liver. Visualized spleen appears no rmal. I see no bony destructive process. Thoracic spine is intact. IMPRESSION: Negative CT scan of the chest. No evidence of thoracic metastatic disease. Numerous liver lesions consistent with metastatic disease.
[2018-08-08 05:18] VITALS: RESP 16
[2018-08-08] MEDS: KETOROLAC 30 MG/ML 1 ML VIAL IVP SCH ×2 (06:08→11:19)
[2018-08-08] MEDS: PANTOPRAZOLE 40 MG/10 ML VIAL IVP SCH (07:44)
[2018-08-08 08:15] LABS: HCT 35.7 % (39.0-53.0); HGB 10.9 gm/dL (13.0-17.5); Hypochromasia Marked; MCH 24.5 pg (25.0-35.0); MCHC 30.7 g/dL (31.0-37.0); MCV 79.9 fL (80.0-100.0); Mean Platelet Volume 7.5; Platelet Count 342 k/uL (150-450); Poikilocytosis Slight; RBC 4.46 m/uL (4.30-5.90); RDW 12.5 % (11.5-15.5); WBC 4.9 k/uL (3.8-10.6)
--- NOTE | 2018-08-08 08:19 | P.CONS ---
History of Present Illness - Reason for Consult Consult date: 08/07/18 rectal bleeding/mass Requesting physician: Ramses Lentz - Chief Complaint rectal pain, bleeding - History of Present Illness The patient is a 38 year old male presenting with rectal bleeding, mass and obstructive symptoms with evidence of metastatic disease involving the liver. The patient reports he developed painless, mild rectal bleeding back in January which he felt was due to hemorrhoids. In May the bleeding became more pronounced, but it was only in the past 2-3 weeks that he noticed a significant change in his stool caliber. He reports that he is now having more difficulty passing stools, and that he is only able to pass small, flat elongated stools. He reports he has to go to the bathroom >20 times per day recently and that his rectal area feels constant pressure/discomfort. He has recently been passing clots as well. He also has noted recent erectile dysfunction. He was admitted 08/06 due to this increased bleeding and obstructive symptoms. A CT of the abdomen/pelvis from 08/06 revealed multiple scattered liver lesions with the largest being up to 3.1 cm. There was a 2.7 cm mass at the rectosigmoid area which appeared to extend into the seminal vesicles. On 08/07 he was taken for colonoscopy and biopsy. This revealed a large mass immediately upon entering the anus which could not be traversed with the scope. The mass was biopsied and results are pending. The patient has no significant family history of colorectal cancers. Currently, the patient still feels rectal pressure and discomfort, but this is slightly better since being hospitalized. Per nursing, he is having about a teaspoon of bright red blood with bowel movements, but as he is on clear liquids currently his frequency of BMs has decreased. Currently Hgb is 10.8. Review of Systems Constitutional: Denies chills, Denies fever Eyes: denies blurred vision Ears: deny: decreased hearing Ears, nose, mouth and throat: Denies headache, Denies neck lump Cardiovascular: Denies chest pain, Denies lightheadedness Respiratory: Denies cough Gastrointestinal: Reports BRBPR, Reports change in bowel habits, Denies abdominal pain, Denies bloating, Denies nausea Genitourinary: Reports erectile dysfunction Musculoskeletal: Denies low back pain Neurological: Denies confusion Past Medical History Past Medical History: No Reported History History of Any Multi-Drug Resistant Organisms: None Reported Past Surgical History: Orthopedic Surgery Additional Past Surgical History / Comment(s): right foot surgery, left hand surgery Past Psychological History: No Psychological Hx Reported Smoking Status: Never smoker Past Alcohol Use History: Daily (3-6 beers per day) Past Drug Use History: None Reported Medications and Allergies Home Medications Medication Instructions Recorded Confirmed Type Docusate [Colace] 100 mg PO DAILY 20 Days #20 capsule 08/02/18 08/06/18 Rx Psyllium Husk 100% [Metamucil 6 gm PO DAILY PRN 10 Days #10 08/02/18 08/06/18 Rx Packet] packet Phenylephrine HCl/[place] Butter 1 supp RECTAL DAILY PRN 08/06/18 08/06/18 History [Preparation H Suppository] Allergies Allergy/AdvReac Type Severity Reaction Status Date / Time codeine AdvReac Nausea & Verified 08/06/18 10:55 Vomiting Physical Exam Vitals: Vital Signs Temp Pulse Pulse Resp BP Pulse Ox 08/08/18 05:00 97.9 F 83 16 128/81 99 08/08/18 00:00 88 17 08/07/18 21:00 98.1 F 93 17 134/85 98 08/07/18 12:48 98.2 F 82 18 122/66 100 08/07/18 10:57 98.1 F 89 18 112/72 98 Intake and Output 08/07/18 08/08/18 08/08/18 22:59 06:59 14:59 Intake Total 1835 Balance 1835 Intake: Oral 1835 Other: Voiding Method Toilet # Voids 2 2 - Constitutional General appearance: average body habitus, no acute distress - EENT Eyes: EOMI, PERRLA ENT: hearing grossly normal - Neck Neck: no lymphadenopathy, normal ROM - Respiratory Respiratory: bilateral: CTA - Cardiovascular Rhythm: regular Heart sounds: normal: S1, S2 - Gastrointestinal General gastrointestinal: no distended, no tenderness - Integumentary Integumentary: no cellulitis, normal (RAYSHAWN - patient did not allow due to pain. external examination revealed no mass/hemorrhoids) - Neurologic Neurologic: CNII-XII intact - Musculoskeletal Musculoskeletal: strength equal bilaterally - Psychiatric Psychiatric: A&O x's 3, appropriate affect Results CBC & Chem 7: 08/07/18 07:32 08/07/18 07:32 Labs: Abnormal Lab Results - Last 24 Hours (Table) 08/07/18 08/07/18 Range/Units 07:32 07:32 Hgb 10.8 L (13.0-17.5) gm/dL Hct 35.2 L (39.0-53.0) % MCV 79.6 L (80.0-100.0) fL MCH 24.3 L (25.0-35.0) pg MCHC 30.6 L (31.0-37.0) g/dL Lymphocytes # 0.4 L (1.0-4.8) k/uL BUN 7 L (9-20) mg/dL Creatinine 0.60 L (0.66-1.25) mg/dL Glucose 106 H (74-99) mg/dL CT scan - abdomen: report reviewed, image reviewed CT scan - pelvis: report reviewed, image reviewed Assessment and Plan Plan: 38 year old male with presumptive newly diagnosed rectal cancer with numerous liver metastases up to 3 cm who presents with near-obstruction, rectal pain and bleeding. 1. Likely rectal cancer: Biopsy pending, CT-chest and tumor markers ordered and also pending. Will need genetic work-up at a later date. Discussed with patient that mainstay of treatment would involve systemic therapy considering burden of liver disease. 2. Obstructive rectal symptoms: As above, patient able to pass small, slit- like stools but was having to use the restroom 20-30 times per day and having pain with movements. Will discuss with medical oncology and surgery. Concerned that if patient is taken for LAR that local tumor will not be able to be removed in its entirety (local extension into seminal vesicles, tumor near anal canal which may require APR). This could also potentially delay chemotherapy. Diverting colostomy may also be a reasonable option. No urgent need for radiotherapy, however if bleeding becomes a larger issue and this not managed surgically palliative radiotherapy is an option with the goal of not delaying chemotherapy. Time with Patient: Greater than 30
[2018-08-08 08:50] LABS: Anion Gap 9 mmol/L; Blood Urea Nitrogen 5 mg/dL (9-20); Calcium 9.6 mg/dL (8.4-10.2); Carbon Dioxide 28 mmol/L (22-30); Chloride 102 mmol/L (98-107); Glucose 105 mg/dL (74-99); Potassium 4.5 mmol/L (3.5-5.1); Sodium 139 mmol/L (137-145)
--- NOTE | 2018-08-08 10:50 | P.PN ---
Subjective Patient really stressed out with the diagnosis of cancer History has bloody bowel movements still No pain in the belly, no nausea and vomiting, no chest pain racing heart, no cough no shortness of breath Objective - Vital Signs Vital signs: Vital Signs Temp 97.9 F 08/08/18 05:00 Pulse 83 08/08/18 08:00 Resp 16 08/08/18 08:00 BP 128/81 08/08/18 05:00 Pulse Ox 99 08/08/18 05:00 Intake & Output 08/07/18 08/08/18 08/08/18 18:59 06:59 18:59 Intake Total 100 1835 240 Balance 100 1835 240 Intake: IV 100 Oral 1835 240 Other: Voiding Method Toilet Toilet # Voids 4 2 - Exam On exam, alert and oriented x3. HEENT: Conjunctivae normal. eyes normal. NECK: No JVD. No thyroid enlargement. No LNs CARDIOVASCULAR: S1, S2 muffled. No murmur RESPIRATION: Breath sounds diminished in the bases. No rhonchi or crackles. No bronchial breathing. ABDOMEN: Soft, nontender . No guarding. no masses palpable. No ascites, No hepatosplenomegaly.Bowel sounds heard. LEGS: No edema. no swelling NERVOUS SYSTEM: Cranial N 2-12 grossly normal. Moves all 4 limbs. No focal de ficits. No sensory deficit. No signs of cerebellar dysfucntion. Skin: no ulcer no rash - Labs CBC & Chem 7: 08/08/18 07:21 08/08/18 07:21 Labs: Abnormal Lab Results - Last 24 Hours (Table) 08/08/18 08/08/18 Range/Units 07:21 07:21 Hgb 10.9 L (13.0-17.5) gm/dL Hct 35.7 L (39.0-53.0) % MCV 79.9 L (80.0-100.0) fL MCH 24.5 L (25.0-35.0) pg MCHC 30.7 L (31.0-37.0) g/dL BUN 5 L (9-20) mg/dL Creatinine 0.62 L (0.66-1.25) mg/dL Glucose 105 H (74-99) mg/dL Assessment and Plan Assessment: - Rectal bleeding - Mass in the rectosigmoid junction - ANEMIA PROBABLY SECONDARY TO BLOOD LOSS - Liver masses suspicious for metastatic disease Plan - Patient was seen by hematology oncology, radiation oncology and surgery team. - The plan with the above consultants is to see what pathology report comes and decide on the treatment plan which would include surgery and chemotherapy as well as radiation. The patient was to have a second opinion at [facility] and is thinking about either been discharged or being transferred directly to [facility] - We'll continue the current care for now - We will follow the patient Time with Patient: Greater than 30
[2018-08-08 12:07] VITALS: BP 142/90; PULSE 99; TEMP 98.2
--- NOTE | 2018-08-08 13:09 | P.PN ---
Subjective Progress Note Date: 08/08/18 Principal diagnosis: rectal mass with liver lesions In f/u today pt is tolerating oral intake, restricted to liquid/soft foods only, he is still passing stool, some blood, pain is persistent, not progressive, he is getting rectal relief with cold packs Objective - Vital Signs Vital signs: Vital Signs Temp 98.2 F 08/08/18 11:50 Pulse 99 08/08/18 11:50 Resp 16 08/08/18 11:50 BP 142/90 08/08/18 11:50 Pulse Ox 100 08/08/18 11:50 Intake & Output 08/07/18 08/08/18 08/08/18 18:59 06:59 18:59 Intake Total 100 1835 240 Balance 100 1835 240 Intake: IV 100 Oral 1835 240 Other: Voiding Method Toilet Toilet # Voids 4 2 - Constitutional General appearance: Present: average body habitus, cooperative, no acute distress - EENT Eyes: Present: anicteric sclerae, EOMI ENT: Present: hearing grossly normal - Respiratory Respiratory: bilateral: CTA - Cardiovascular Rhythm: regular Heart sounds: normal: S1, S2 Abnormal Heart Sounds: Absent: systolic murmur, diastolic murmur, rub, S3 Gallop, S4 Gallop, click, other - Peripheral edema leg Peripheral Edema: bilateral: None - Gastrointestinal General gastrointestinal: Present: normal bowel sounds, soft. Absent: absent bowel sounds, decreased bowel sounds, distended, hepatomegaly, hyperactive bowel sounds, organomegaly, rigid, scaphoid, splenomegaly, tenderness, umbilical hernia, ventral hernia - Integumentary Integumentary: Present: normal - Neurologic Neurologic: Present: CNII-XII intact - Musculoskeletal Musculoskeletal: Present: strength equal bilaterally - Psychiatric Psychiatric: Present: A&O x's 3, appropriate affect, intact judgment & insight - Labs CBC & Chem 7: 08/08/18 07:21 08/08/18 07:21 Labs: Abnormal Lab Results - Last 24 Hours (Table) 08/08/18 08/08/18 Range/Units 07:21 07:21 Hgb 10.9 L (13.0-17.5) gm/dL Hct 35.7 L (39.0-53.0) % MCV 79.9 L (80.0-100.0) fL MCH 24.5 L (25.0-35.0) pg MCHC 30.7 L (31.0-37.0) g/dL BUN 5 L (9-20) mg/dL Creatinine 0.62 L (0.66-1.25) mg/dL Glucose 105 H (74-99) mg/dL - Imaging and Cardiology CT scan - chest: report reviewed Assessment and Plan (1) Rectal mass Narrative/Plan: Pending pathology Current Visit: Yes Status: Acute Priority: High Code(s): K62.9 - DISEASE OF ANUS AND RECTUM, UNSPECIFIED SNOMED Code(s): 498473207 (2) Microcytic hypochromic anemia Narrative/Plan: Lab work up is still pending. Supplementation, as necessary can be addressed in the outpatient setting. Hgb is stable, no transfusion at this time Current Visit: Yes Status: Acute Priority: Medium Code(s): D50.9 - IRON DEFICIENCY ANEMIA, UNSPECIFIED SNOMED Code(s): 28978563 Plan: Discussed case with Dr. Llanos, IM [employer], Dr. Napoles is reviewing path and will get back to me, and reviewed with Dr. Conklin Decision is to proceed SHAHNAZ with chemotherapy as this is going to systemically treat primary and metastatic disease. Surgery is going to be held unless pt obstructs, then it would be necessary. Role of radiation at this time is palliation of bleeding if needed. Plan is for port placement tomorrow Once a preliminary path result is available chemo will be ordered and insurance request sent. Chemo to start SHAHNAZ Pt and verbalize understanding plan. 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 He is stable hemodynamically. He was educated on staying on liquid/soft diet (lots of protein drinks), monitoring BM so he is certain he is passing stool, and monitoring for bleeding. He verbalized understanding when he needs to return to the hospital. He can use topicals, spray witch reid and ice for rectal swelling/pain relief-NO SUPPOSITORIES Pt is ok to DC, did speak with IM Time with Patient: Greater than 30 (1 hour spent with pt, >50% counseling and coordinating care)
--- NOTE | 2018-08-08 13:30 | P.PN ---
Subjective Progress Note Date: 08/08/18 CHIEF COMPLAINT: Rectal bleeding HISTORY OF PRESENT ILLNESS: Patient examined at the bedside with Dr. Llanos. Colonoscopy was performed yesterday but scope was unable to be advanced secondary to assess at the rectum. Biopsies were taken and are currently pending. Patient reports he is able to have bowel movements and tolerating diet. PHYSICAL EXAM: VITAL SIGNS: Reviewed. GENERAL: Well-developed in no acute distress. HEENT: No sclera icterus. Extraocular movements grossly intact. Moist buccal mucosa. Head is atraumatic, normocephalic. ABDOMEN: Soft. Nondistended. Nontender. NEUROLOGIC: Alert and oriented. Cranial nerves II through XII grossly intact. ASSESSMENT: 1. Colon mass PLAN: Case discussed with Kalani Reyes, ACCOUNTANT CERTIFIED PUBLIC from oncology along with Dr. Madsen, internal medicine. Patient requesting to be discharged home today. He may be discharged home today from a surgical standpoint. He will be scheduled for outpatient port insertion tomorrow with Dr. Llanos. Patient to be NPO after midnight. Surgical services will call the patient to inform him of arrival time and further surgical instructions. Nurse practitioner note has been reviewed by physician. Signing provider agrees with the documented findings, assessment, and plan of care. Objective - Vital Signs Vital signs: Vital Signs Temp 98.2 F 08/08/18 11:50 Pulse 99 08/08/18 11:50 Resp 16 08/08/18 11:50 BP 142/90 08/08/18 11:50 Pulse Ox 100 08/08/18 11:50 Intake & Output 08/07/18 08/08/18 08/08/18 18:59 06:59 18:59 Intake Total 100 1835 240 Balance 100 1835 240 Intake: IV 100 Oral 1835 240 Other: Voiding Method Toilet Toilet # Voids 4 2 - Labs CBC & Chem 7: 08/08/18 07:21 08/08/18 07:21 Labs: Abnormal Lab Results - Last 24 Hours (Table) 08/08/18 08/08/18 Range/Units 07:21 07:21 Hgb 10.9 L (13.0-17.5) gm/dL Hct 35.7 L (39.0-53.0) % MCV 79.9 L (80.0-100.0) fL MCH 24.5 L (25.0-35.0) pg MCHC 30.7 L (31.0-37.0) g/dL BUN 5 L (9-20) mg/dL Creatinine 0.62 L (0.66-1.25) mg/dL Glucose 105 H (74-99) mg/dL
--- NOTE | 2018-08-08 13:40 | P.DS ---
Providers Date of admission: 08/06/18 13:27 Expected date of discharge: 08/08/18 Attending physician: Tad Knight Consults: 08/06/18 13:28 Consult Physician Routine Consulting Provider: Troy Llanos Consult Reason/Comments: rectosigmoid mass Do you want consulting provider notified?: Yes 08/07/18 11:19 Consult Physician Routine Consulting Provider: Ramses Lentz Consult Reason/Comments: rectal mass with possible liver mets Do you want consulting provider notified?: Yes 08/07/18 16:48 Consult Physician Routine Consulting Provider: Rajiv Encarnacion Consult Reason/Comments: rectal mass, ?obstruction, recommendation Do you want consulting provider notified?: Already Contacted Primary care physician: Eric Montgomery Hospital Course: Discharge diagnosis - Rectal bleeding - 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 He had a computed tomography scan done in the ER which showed a mass at the rectosigmoid junction suspicious for cancer and also some masses in the liver suspicious for metastatic disease. He had a colonoscopy done and biopsies obtained at that time. Results are pending at this time. He was seen by hematology oncology and by general surgery. Patient really wants to go home and take care of his patient can speak with the boss. We will therefore discharge him. The general surgery and hepatology oncology cleared the patient for discharge. The plan for him is to go home and return for port placement tomorrow that is on 08/09/2018 as an outpatient. Patient is also supposed to follow with hematology oncology and depending upon the biopsy results the plan is start the patient on chemotherapy and/or or radiation. Patient will also eventually end up needing surgery. He wants to have a second opinion regarding the surgery with [facility]. He will therefore be discharged when arrangements are made for follow-up tomorrow Patient Condition at Discharge: Stable Plan - Discharge Summary New Discharge Prescriptions: Continue Docusate [Colace] 100 mg PO DAILY 20 Days #20 capsule Psyllium Husk 100% [Metamucil Packet] 6 gm PO DAILY PRN 10 Days #10 packet PRN Reason: Constipation Discontinued Phenylephrine HCl/Glenoma Butter [Preparation H Suppository] 1 supp RECTAL DAILY PRN PRN Reason: Pain Discharge Medication List Docusate [Colace] 100 mg PO DAILY 20 Days #20 capsule 08/02/18 [Rx] Psyllium Husk 100% [Metamucil Packet] 6 gm PO DAILY PRN 10 Days #10 packet 08/02/18 [Rx] Follow up Appointment(s)/Referral(s): Eric Montgomery DO [Primary Care Provider] - 1-2 days
[2018-08-08 17:59] LABS: HIV 1 AB Non-Reactive (Non-Reactive); HIV AB P24 Non-Reactive (Non-Reactive); HIV P24 AG Non-Reactive (Non-Reactive)
[2018-08-08 18:47] LABS: Iron Saturation 3.33 (15.00-50.00)
[2018-08-09] MEDS ORDERED: PANTOPRAZOLE 40 MG TABLET PO SCH (07:30)
== END 2018-08-08 14:15 | disposition home or self-care (01) | DRG 375 ==
LOC: EC 10:24 → 4SSUR 13:27 → 3NMEDONC 19:25
PROVIDERS: ADMIT Hospitalist; ATTEND Hospitalist
PROC: 0DBQ8ZX Excision of Anus, Via Natural or Artificial Opening Endoscopic, Diagnostic (ICD-10-PCS; principal; 2018-08-07 07:30)
DX: C19 Malignant neoplasm of rectosigmoid junction (principal); C78.7 Secondary malignant neoplasm of liver and intrahepatic bile duct; D50.0 Iron deficiency anemia secondary to blood loss (chronic); D53.9 Nutritional anemia, unspecified; K64.9 Unspecified hemorrhoids; Z80.8 Family history of malignant neoplasm of other organs or systems; Z87.11 Personal history of peptic ulcer disease; Z88.5 Allergy status to narcotic agent; N52.9 Male erectile dysfunction, unspecified
CPT/HCPCS: 36415; 45380; 71260; 74177; 80048; 80053; 81003; 82272; 82607; 82728; 82747; 83540; 83550; 85025; 85027; 85610; 85730; 87390; 88305; 99284

== ENCOUNTER → 2018-08-09 | Day surgery (SDC) | payer OTHER ==
[~2018-08-09] MED LIST: BUPIVACAIN-EPI 0.5%-1:200,000 30 ML VIAL SQ ONE; DEXAMETHASONE SOD PHOSPHATE 10 MG/ML 1 ML VIAL IV ONE; HEPARIN SODIUM,PORCINE 100 UNIT/ML 5 ML VIAL IV ONE; HEPARIN SODIUM,PORCINE 5,000 UNIT/ML 1 ML VIAL SQ ONE; HYDROmorphone 0.5 MG/0.5 ML SYRINGE IVP PRN; IOHEXOL 180 MG/ML 1 ML ML MISCELLANE ONE; KETAMINE 10 MG/ML 20 ML VIAL ONE; LACTATED RINGERS 1,000 ML IV SCH; LIDOCAINE 1% 20 ML VIAL (10MG/ML) FOR IV START INTRADERMA PRN; LIDOCAINE 1% INJ 10MG/ML (20 ML MDV) ONE; MIDAZOLAM (PF) 2 MG/2 ML VIAL IV PRN; MIDAZOLAM 2 MG/2 ML VIAL ONE; ONDANSETRON 4 MG/2 ML VIAL IVP ONE; ONDANSETRON 4 MG/2 ML VIAL IVP PRN; PROPOFOL 10 MG/ML 20 ML VIAL IV ONE; Pre Op ABX Message 1 EACH MISC MISCELLANE ONE; SCOPOLAMINE 1.5MG/72HR PATCH TRANSDERM ONE; SODIUM CHLORIDE 0.9% 50 ML with ceFAZolin 2,000 MG IV ONE; fentaNYL (PF) 50 MCG/ML 2 ML AMP ONE
[2018-08-09 07:44] VITALS: TEMP 97.7
--- NOTE | 2018-08-09 08:47 | P.GSHP ---
History of Present Illness H&P Date: 08/09/18 Chief Complaint: Rectal mass This a 38-year-old male who presents today for insertion of Port-A-Cath. Patient was recently diagnosed with rectal mass. Past Medical History Past Medical History: No Reported History History of Any Multi-Drug Resistant Organisms: None Reported Past Surgical History: Orthopedic Surgery Additional Past Surgical History / Comment(s): right foot surgery, left hand surgery Past Psychological History: No Psychological Hx Reported Smoking Status: Never smoker Past Alcohol Use History: Daily (3-6 beers per day) Past Drug Use History: None Reported Medications and Allergies Home Medications Medication Instructions Recorded Confirmed Type Docusate [Colace] 100 mg PO DAILY 20 Days #20 capsule 08/02/18 08/06/18 Rx Psyllium Husk 100% [Metamucil 6 gm PO DAILY PRN 10 Days #10 08/02/18 08/06/18 Rx Packet] packet Allergies Allergy/AdvReac Type Severity Reaction Status Date / Time codeine AdvReac Nausea & Verified 08/09/18 07:25 Vomiting Surgical - Exam Vital Signs Temp Pulse Resp BP Pulse Ox 97.7 F 90 16 139/83 99 08/09/18 07:43 08/09/18 07:43 08/09/18 07:43 08/09/18 07:43 08/09/18 07:43 - General well developed, well nourished, no distress - Eyes PERRL - ENT normal pinna - Neck no masses - Respiratory normal expansion - Cardiovascular Rhythm: regular - Abdomen Abdomen: soft, non tender Assessment and Plan Assessment: Recent diagnosis of rectal mass. Patient will undergo Port-A-Cath placement.
--- NOTE | 2018-08-09 09:55 | FL ---
Fluoroscopy History: Port-A-Cath insertion Insert port a cath. Dr. Llanos. 46 sec fluoro. 1 image scanned.
--- NOTE | 2018-08-09 10:06 | P.OP ---
Date of Procedure: 08/09/18 Preoperative Diagnosis: Rectal mass Postoperative Diagnosis: Rectal mass Procedure(s) Performed: Insertion of right subclavian Port-A-Cath Anesthesia: MAC Surgeon: Troy Llanos Estimated Blood Loss (ml): 5 Pathology: none sent Condition: stable Disposition: PACU Description of Procedure: MPROCEDURE: The patient was placed on the operating table in the supine position. She received MAC anesthetic. The [right] chest was prepped and draped in the usual sterile fashion. The skin underneath the right clavicle was anesthetized with 1% Xylocaine and using Seldinger technique, the right subclavian vein was cannulized. The wire was placed through the needle and positioned under fluoroscopy. Next, the needle was removed and the port site was anesthetized with 1% Xylocaine. Skin was incised with #15 blade and port pocket was made using blunt and sharp dissection. Following this the catheter was attached to the sport and the port was flushed. The port was positioned into the pocket site and was secured with 3-0 Vicryl suture. The catheter was then brought out through the wire site and then the dilator sheath was placed over the wire and the dilator and the wire were removed. The catheter was placed through the sheath and the sheath was removed. The port was flushed with hep-lock solution. Skin was closed with interrupted 3-0 Vicryl sutures. Steri-Strips were applied. The patient tolerated the procedure well. The patient was sent to recovery room for chest x-ray after the procedure.
[2018-08-09 10:24] VITALS: RESP 16
--- NOTE | 2018-08-09 10:45 | XR ---
EXAMINATION TYPE: XR chest 1V portable DATE OF EXAM: 08/09/2018 Comparison: None Clinical History: 38-year-old male Line placement, rule out pneumothorax Findings: Right anterior chest wall injection port with subclavian approaching catheter tip at the mid to lowe r SVC level. No appreciable pneumothorax. Heart normal size. No consolidation or pleural effusion see n. Impression: Right-sided chest wall injection port with subclavian access and tip at the mid to lower SVC. No appr eciable pneumothorax.
[2018-08-09 11:09] VITALS: BP 120/78
[2018-08-09 11:12] VITALS: PULSE 98
== END ==
LOC: OR 07:10
PROVIDERS: ATTEND Surgery
DX: C20 Malignant neoplasm of rectum (principal); C78.7 Secondary malignant neoplasm of liver and intrahepatic bile duct; F17.220 Nicotine dependence, chewing tobacco, uncomplicated; Z88.5 Allergy status to narcotic agent
CPT/HCPCS: 36561; 77001; 71045; C1788; J2250; J1644; J1642; J1100; Q9965; J2405; J2001; J3010; J0690; J2704

== ENCOUNTER → 2018-10-15 | Outpatient (CLI) | payer OTHER ==
[2018-10-15 13:41] LABS: Blood Urea Nitrogen 11 mg/dL (9-20)
--- NOTE | 2018-10-15 15:26 | CT ---
EXAMINATION TYPE: CT ChestAbdPelvis w con DATE OF EXAM: 10/15/2018 COMPARISON: 08/07/2018, 08/06/2018 HISTORY: Follow up scan CT DLP: 1214 mGycm Automated exposure control for dose reduction was used. CONTRAST: CT scan of the chest, abdomen and pelvis is performed with Oral Contrast and with IV Contrast, patien t injected with 100 mL of Isovue 300. FINDINGS: LUNGS: The lungs are grossly clear, there is no concerning parenchymal mass or nodule identified. T here is no pleural effusion or pneumothorax seen. The tracheobronchial tree is patent. MEDIASTINUM: There are no greater than 1 cm hilar or mediastinal lymph nodes. No pericardial effusi on is seen. Prominent right-sided pericardial fat noted. Mediport catheter seen. Shotty adenopathy in the hilum and mediastinum. OTHER: No additional significant abnormality is seen. LIVER/GB: There are approximately 20 lesions within the liver involving all segments and lobes. All l esions are markedly reduced in size. The largest measures 1.2 x 1.2 cm and previously measured 2.6 x 2.4 cm. Every lesion appears to demonstrate a reduction in size relative to the prior exam. PANCREAS: No significant abnormality is seen. SPLEEN: No significant abnormality is seen. ADRENALS: No significant abnormality is seen. KIDNEYS: No significant abnormality is seen. BOWEL: There is diffuse colonic wall thickening involving the sigmoid colon which may be partially r elated to incomplete distention rather than colitis correlate clinically. Previous described soft tis nazia fullness in the rectosigmoid region now measures 2 cm and previously measured 2.7 cm. There is sh otty lymphadenopathy in the region. No pathologic-sized lymph nodes.. LYMPH NODES: No greater than 1 cm abdominal or pelvic lymph nodes are appreciated. OSSEOUS STRUCTURES: Degenerative changes of the lower vertebral column.. OTHER: Aorta of normal caliber. No free fluid. IMPRESSION: 1. There is interval marked reduction in size of all lesions within the liver compatible with improvi ng hepatic metastases as measured above. 2. Soft tissue fullness involving the rectosigmoid junction described in the prior exam appears reduc ed in size relative to the prior CT exam. 3. There is thickening diffusely of the wall of the sigmoid colon which is felt to BE most likely rel ated to incomplete distention rather than colitis correlate clinically.
== END | disposition home or self-care (01) ==
LOC: RADPROMAIN 13:04
PROVIDERS: ATTEND Internal Medicine Hematology & Oncology
DX: K63.89 Other specified diseases of intestine (principal); K76.89 Other specified diseases of liver; M79.89 Other specified soft tissue disorders; C20 Malignant neoplasm of rectum
CPT/HCPCS: 82565; 84520; 71260; 74177; J1642; Q9967

== ENCOUNTER → 2019-01-22 | Outpatient (CLI) | payer OTHER ==
[2019-01-22 10:41] LABS: African American GFR (CKD) >90 (>60 ml/min/1.73 sqM); Blood Urea Nitrogen 12 mg/dL (9-20)
--- NOTE | 2019-01-22 13:35 | CT ---
EXAMINATION TYPE: CT ChestAbdPelvis w con DATE OF EXAM: 01/22/2019 COMPARISON: CT October 15, 2018 and older CTs HISTORY: Rectal cancer follow up CT DLP: 901.7 mGycm. Automated Exposure Control for Dose Reduction was Utilized. CONTRAST: CT scan of the thorax, abdomen and pelvis is performed with IV Contrast, patient injected with 100 mL of Isovue 300. FINDINGS: LUNGS: The lungs are grossly clear, there is no concerning parenchymal mass or nodule identified. T here is no pleural effusion or pneumothorax seen. The tracheobronchial tree is patent. MEDIASTINUM: There are no greater than 1 cm hilar or mediastinal lymph nodes. No cardiomegaly or pe ricardial effusion is seen. Stable right subclavian Mediport catheter terminating at the brachioceph alic confluence unchanged in appearance from prior coronal image 40. LIVER/GB: Heterogeneous hypodense lesions consistent with hepatic metastatic disease redemonstrated. Continued decrease in size and number of most lesions felt present. For reference anterior right hepa tic dome lesion measures 1.4 cm long axis prior study versus 1.9 cm most recent prior study. Some les ions fairly stable. No enlarging lesions are present. PANCREAS: No significant abnormality is seen. SPLEEN: No significant abnormality is seen. ADRENALS: No significant abnormality is seen. KIDNEYS: No significant abnormality is seen. BOWEL: Oral contrast reaches level of proximal transverse colon. No suspicious small or large bowel d ilatation. Appendix is not dilated from base of cecum. Primary rectal lesion difficult to accurately measure as there is indistinct fat plane from adjacent prostate gland, right anterolateral tumor felt present measuring approximately 2.8 x 1.6 cm axial image 120. GENITAL ORGANS: Adjacent prostate gland is upper limits of normal in size. LYMPH NODES: No greater than 1cm abdominal or pelvic lymph nodes are appreciated. OSSEOUS STRUCTURES: Some disc space narrowing lumbosacral junction with vacuum disc phenomenon. OTHER: No significant additional abnormality is seen. IMPRESSION: Continued positive partial treatment response with improvement in size and number of visu alized hepatic metastatic lesions from last 2 CTs. Poor visualization of rectal tumor difficult to ac curately measure. No new obstruction. No new suspicious masses or adenopathy.
== END | disposition home or self-care (01) ==
LOC: RADPROMAIN 09:06
PROVIDERS: ATTEND Internal Medicine Hematology & Oncology
DX: Z03.89 Encounter for observation for other suspected diseases and conditions ruled out (principal); C78.7 Secondary malignant neoplasm of liver and intrahepatic bile duct; C20 Malignant neoplasm of rectum
CPT/HCPCS: 82565; 84520; 71260; 74177; 36415; Q9967

== ENCOUNTER 2019-04-21 11:02 | Inpatient (IN) | payer OTHER ==
[2019-04-21] MEDS ORDERED: SODIUM CHLORIDE 0.9% 1,000 ML IV STA ×2 (11:19)
[2019-04-21] MEDS ORDERED: ONDANSETRON 4 MG/2 ML VIAL IVP STA (11:19)
[2019-04-21] MEDS ORDERED: MORPHINE SULFATE 4 MG/ML SYRINGE IVP STA (11:20)
--- NOTE | 2019-04-21 11:27 | ED ---
General Adult HPI <Dhiraj Hernández - Last Filed: 04/21/19 13:13> - General Source: patient, RN notes reviewed, old records reviewed Mode of arrival: ambulatory Limitations: no limitations <Saniya Bui - Last Filed: 04/21/19 13:22> - General Chief complaint: Nausea/Vomiting/Diarrhea Stated complaint: Vomitting/Diarrhea Time Seen by Provider: 04/21/19 11:08 - History of Present Illness Initial comments: Patient is a 39-year-old male with a history of rectal cancer. Currently undergoing chemotherapy treatment his oncologist is Dr. Conklin. He started his second dose of a new chemotherapy on 04/16 and finish the pack on 04/18. Patient reports that over the past 2-3 days has been having persistent nausea vomiting and has had had some episodes of diarrhea. He also complains of upper respiratory congestion and a runny nose. He reports that he has scheduled for an upcoming CAT scan of his chest abdomen and pelvis on the . Patient states that he just feels very weak and tired. Patient states that he's had no specific fevers chills at this time. Patient states that he's had diarrhea whic h is different than his usual stools, which she normally has to take a stool softener. (Saniya Bui) - Related Data Previous Rx's Medication Instructions Recorded Docusate [Colace] 100 mg PO DAILY 20 Days #20 capsule 08/02/18 Psyllium Husk 100% [Metamucil 6 gm PO DAILY PRN 10 Days #10 08/02/18 Packet] packet Allergies Allergy/AdvReac Type Severity Reaction Status Date / Time codeine AdvReac Nausea & Verified 04/21/19 11:02 Vomiting Review of Systems ROS Other: All systems not noted in ROS Statement are negative. <Dhiraj Hernández - Last Filed: 04/21/19 13:13> ROS Other: All systems not noted in ROS Statement are negative. <Saniya Bui - Last Filed: 04/21/19 13:22> ROS Statement: Those systems with pertinent positive or pertinent negative responses have been documented in the HPI. Past Medical History Past Medical History: Cancer Additional Past Medical History / Comment(s): colorectal History of Any Multi-Drug Resistant Organisms: None Reported Past Surgical History: Orthopedic Surgery Additional Past Surgical History / Comment(s): right foot surgery, left hand surgery, mediport Past Psychological History: No Psychological Hx Reported Smoking Status: Never smoker Past Alcohol Use History: None Reported Past Drug Use History: None Reported <HaoSaniya - Last Filed: 04/21/19 13:22> General Exam Limitations: no limitations Head exam: Present: atraumatic, normocephalic, normal inspection Eye exam: Present: normal appearance, PERRL, EOMI. Absent: scleral icterus, conjunctival injection, periorbital swelling ENT exam: Present: normal exam, mucous membranes moist Neck exam: Present: normal inspection. Absent: tenderness, meningismus, lymphadenopathy Respiratory exam: Present: normal lung sounds bilaterally. Absent: respiratory distress, wheezes, rales, rhonchi, stridor Cardiovascular Exam: Present: regular rate, normal rhythm, normal heart sounds. Absent: systolic murmur, diastolic murmur, rubs, gallop, clicks GI/Abdominal exam: Present: soft, other (Reports some minimal left-sided abdominal pain and tenderness but he states this seems to be chronic. No changes.) Extremities exam: Present: normal inspection, full ROM, normal capillary refill. Absent: tenderness, pedal edema, joint swelling, calf tenderness Back exam: Present: normal inspection Neurological exam: Present: alert, oriented X3, CN II-XII intact Psychiatric exam: Present: normal affect, normal mood Skin exam: Present: warm, dry, intact, normal color. Absent: rash <HaoSaniya - Last Filed: 04/21/19 13:22> - General Exam Comments Initial Comments: This patient's a 39-year-old male. Alert and oriented 3. Patient appears in no significant distress at this time. He is here with his at bedside. (Saniya Bui) Course <Dhiraj Hernández - Last Filed: 04/21/19 13:13> Vital Signs 04/21/19 11:03 Temperature 97.6 F Pulse Rate 108 H Respiratory 18 Rate Blood Pressure 151/103 O2 Sat by Pulse 97 Oximetry - Reevaluation(s) Reevaluation #1: 04/21/19 13:13 PA supervision: I proceeded [id number] evaluation the patient. He does have a history of renal cancer and just started a new chemotherapy. He does present with complaints of nausea vomiting also diarrhea which started. Having weakness and difficulty keeping fluids or food down. I did discuss case with Dr. Sánchez. Patient will be admitted Dr. Conklin will be consulted patient will be hydrated. CT the abdomen pelvis has been ordered and will be done while in the hospital as per the outpatient order. (Dhiraj Hernández) Medical Decision Making - Lab Data Result diagrams: 04/21/19 11:57 12 11:57 <Dhriaj Heránndez - Last Filed: 04/21/19 13:13> - Lab Data Result diagrams: 04/21/19 11:57 04/21/19 11:57 <Saniya Bui - Last Filed: 04/21/19 13:22> - Medical Decision Making This is a 39-year-old male with history of rectal cancer. He presents today for evaluation for concerns for nausea and vomiting and diarrhea episodes after his last chemotherapy. He finishes on 04 18. Patient's laboratory was reviewed. There is some leukopenia with white blood cell count of 3.3. Chemstrip feels relatively unremarkable. He is given 2 L bolus. He was reevaluated complains of some minor pains that are not but reports his nausea is resolved after Zofran. I discussed the case with Dr. Hernández. For concern for patient's slight dehydration, and unable to tolerate fluids at home. Discussed admission. Patient is scheduled for an upcoming CAT scan of his chest abdomen and pelvis with oral contrast. Discussed he can order this and patiently. Patient's case was discussed with Dr. Sánchez, whom covers Dr. Montgomery by Dr. Hernández. Requests consult for Dr. Conklin. (Saniya Bui) - Lab Data Lab Results 04/21/19 04/21/19 04/21/19 Range/Units 11:57 11:57 11:57 WBC 3.4 L (3.8-10.6) k/uL RBC 4.44 (4.30-5.90) m/uL Hgb 14.7 (13.0-17.5) gm/dL Hct 40.1 (39.0-53.0) % MCV 90.2 (80.0-100.0) fL MCH 33.0 (25.0-35.0) pg MCHC 36.6 (31.0-37.0) g/dL RDW 14.1 (11.5-15.5) % Plt Count 201 (150-450) k/uL Neutrophils % 72 % Lymphocytes % 14 % Monocytes % 8 % Eosinophils % 2 % Basophils % 1 % Neutrophils # 2.4 (1.3-7.7) k/uL Lymphocytes # 0.5 L (1.0-4.8) k/uL Monocytes # 0.3 (0-1.0) k/uL Eosinophils # 0.1 (0-0.7) k/uL Basophils # 0.0 (0-0.2) k/uL Hyperchromasia Slight Sodium 137 (137-145) mmol/L Potassium 3.7 (3.5-5.1) mmol/L Chloride 100 (98-107) mmol/L Carbon Dioxide 26 (22-30) mmol/L Anion Gap 11 mmol/L BUN 19 (9-20) mg/dL Creatinine 0.64 L (0.66-1.25) mg/dL Est GFR (CKD-EPI)AfAm >90 (>60 ml/min/1.73 sqM) Est GFR (CKD-EPI)NonAf >90 (>60 ml/min/1.73 sqM) Glucose 123 H (74-99) mg/dL Plasma Lactic Acid Subhash 2.0 (0.7-2.0) mmol/L Calcium 9.6 (8.4-10.2) mg/dL Total Bilirubin 1.1 (0.2-1.3) mg/dL AST 34 (17-59) U/L ALT 57 (21-72) U/L Alkaline Phosphatase 99 (38-126) U/L Total Protein 7.6 (6.3-8.2) g/dL Albumin 4.7 (3.5-5.0) g/dL Amylase 48 (30-110) U/L Lipase 96 (23-300) U/L Disposition <Dhiraj Hernández - Last Filed: 04/21/19 13:13> Is patient prescribed a controlled substance at d/c from ED?: No Time of Disposition: 13:22 <Saniya Bui - Last Filed: 04/21/19 13:22> Clinical Impression: Nausea & vomiting, Hx of malignant neoplasm of rectum, Chemotherapy adverse reaction Disposition: ADMITTED IP TO THIS HOSP Condition: Stable Referrals: Eric Montgomery DO [Primary Care Provider] - 1-2 days
[2019-04-21 12:06] LABS: Basophils % (A) 1 %; Eosinophils # (A) 0.1 k/uL (0-0.7); Eosinophils % (A) 2 %; HCT 40.1 % (39.0-53.0); HGB 14.7 gm/dL (13.0-17.5); Hyperchromasia Slight; Lymphocytes # (A) 0.5 k/uL (1.0-4.8); Lymphocytes % (A) 14 %; MCHC 36.6 g/dL (31.0-37.0); MCV 90.2 fL (80.0-100.0); Mean Platelet Volume 7.6; Monocytes # (A) 0.3 k/uL (0-1.0); Monocytes % (A) 8 %; Neutrophils # (A) 2.4 k/uL (1.3-7.7); Neutrophils % (A) 72 %; Platelet Count 201 k/uL (150-450); RBC 4.44 m/uL (4.30-5.90); RDW 14.1 % (11.5-15.5); WBC 3.4 k/uL (3.8-10.6)
[2019-04-21 12:16] LABS: ALT 57 U/L (21-72); AST 34 U/L (17-59); African American GFR (CKD) >90 (>60 ml/min/1.73 sqM); Albumin 4.7 g/dL (3.5-5.0); Alkaline Phosphatase 99 U/L (38-126); Amylase 48 U/L (30-110); Anion Gap 11 mmol/L; Blood Urea Nitrogen 19 mg/dL (9-20); Calcium 9.6 mg/dL (8.4-10.2); Carbon Dioxide 26 mmol/L (22-30); Chloride 100 mmol/L (98-107); Glucose 123 mg/dL (74-99); Non-African American GFR(CKD) >90 (>60 ml/min/1.73 sqM); Potassium 3.7 mmol/L (3.5-5.1); Sodium 137 mmol/L (137-145); Total Bilirubin 1.1 mg/dL (0.2-1.3); Total Protein 7.6 g/dL (6.3-8.2)
[2019-04-21] MEDS ORDERED: SODIUM CHLORIDE 0.9% 1,000 ML IV ONE (12:52)
[2019-04-21] MEDS ORDERED: ACETAMINOPHEN TAB 325 MG TAB PO PRN (13:23)
[2019-04-21] MEDS ORDERED: ONDANSETRON 4 MG/2 ML VIAL IVP PRN (13:23)
[2019-04-21] MEDS ORDERED: IBUPROFEN 400 MG TAB PO PRN (13:23)
[2019-04-21] MEDS ORDERED: NALOXONE 0.4 MG/ML 1 ML VIAL IV PRN (13:23)
[2019-04-21] MEDS ORDERED: IOPAMIDOL CONTRAST (ORAL USE) VIAL PO PRN (13:24)
[2019-04-21] MEDS: MORPHINE SULFATE 4 MG/ML SYRINGE IV PRN ×2 (16:37→22:30)
[2019-04-21] MEDS ORDERED: HYDROcodone/APAP 5-325MG 1 EACH TAB PO PRN (17:10)
--- NOTE | 2019-04-21 17:42 | CT ---
EXAMINATION TYPE: CT ChestAbdPelvis w con DATE OF EXAM: 04/21/2019 COMPARISON: CT chest/abdomen/pelvis 01/22/2019 HISTORY: nausea, vomiting, current chemo pt for rectal ca. CT DLP: 968.1 mGycm Automated exposure control for dose reduction was used. CONTRAST: CT scan of the chest, abdomen and pelvis is performed with Oral Contrast and with IV Contrast, patien t injected with 100 mL of Isovue 300. FINDINGS: Chest: Bilateral lung nodules have increased in number and size in the interim, for example: Largest right lung nodule is within the right lower lobe currently measuring 8 mm (series 204 image 48), prev iously 4 mm; largest left lung nodules within the left lower lobe currently measuring 8 mm (series 20 4 image 39), previously 6 mm. No focal airspace consolidation. No pleural effusion or pneumothorax. Tracheobronchial tree is patent. Normal course and caliber of the thoracic aorta. No pulmonary arteri al enlargement. No cardiomegaly. Stable right hilar lymph node measuring 8 mm. Abdomen/pelvis: Multiple solid liver masses are redemonstrated and more conspicuous raising suspicion of interval growth, for example within the right hepatic lobe measuring 2 cm (series 301 image 6), p reviously 9 mm. The spleen and pancreas are within normal limits. No adrenal nodules. No calcified ga llstones. Symmetric renal enhancement without hydronephrosis. Oral contrast is present within the sigmoid colon, the rectum is not opacified. Redemonstrated is mas slike nodularity along the right anterolateral aspect of the rectum, poorly differentiated from the a djacent prostate gland; this is grossly similar to prior study. No dilated bowel, free air, or free f luid. No suspicious mesenteric adenopathy. Normal course and caliber of the abdominal aorta. Osseous structures: No osseous destructive lesion. IMPRESSION: 1. Findings indicate disease progression with either new or enlarging pulmonary metastatic nodules as well as enlarging hepatic metastatic lesions. 2. Masslike abnormality along the right anterolateral aspect of the rectum is redemonstrated, difficu lt to accurately assess given location. There is no significant interval change from January 2019 c omparison.
[2019-04-21 17:55] LABS: Appearance,Urine Clear (Clear); Bilirubin,Urine Negative (Negative); Blood,Urine Negative (Negative); Color,Urine Yellow; Glucose,Urine (UA) Negative (Negative); Ketones,Urine Negative (Negative); Leukocyte Esterase,Urine Negative (Negative); Nitrite,Urine Negative (Negative); Protein,Urine Trace (Negative); Urobilinogen,Urine <2.0 mg/dL (<2.0)
[2019-04-21 18:01] LABS: Specific Gravity,Urine >1.050 (1.001-1.035)
[2019-04-21] MEDS ORDERED: ZOLPIDEM 5 MG TAB PO PRN (20:57)
[2019-04-21] MEDS: SODIUM CHLORIDE 0.9% 1,000 ML IV SCH (22:31)
--- NOTE | 2019-04-21 23:21 | P.HPIM ---
History of Present Illness H&P Date: 04/21/19 Chief Complaint: Nausea,vomiting and diarrhea Mr. Ayala is a 39-year-old male who was recently diagnosed with rectal cancer in July 2018, undergoing chemotherapy by Dr. Conklin, coming to the hospital with a chief complaint of nausea vomiting and diarrhea. Patient states that he has been throwing up couple of times yesterday. He has diarrhea, that is watery in consistency, with mucus and also bloody. Patient denies having any bright red blood per rectum, but his stool is mixed with blood. Patient started his second dose of chemotherapy on 04/16 and finished it on 04/18. He is scheduled for a CAT scan next week. Patient denied having any fevers, chills or rigors. No recent use of antibiotics. Patient denies having any chest pain or palpitations. No cough or difficulty breathing. No dysuria or hematuria. No headaches, blurring of vision or sinus issues. Patient denies having any sore throat. He denies having any swelling of his lower extremities. No dizziness. In the ER patient had labs done showing white count of 3.4 platelets of 201 hemoglobin at 14.7. His sodium is 137, potassium 3.7, BUN 19, creatinine 0.64. His urine analysis is negative for nitrates and leukocyte esterase. Patient also had a CT of the chest, abdomen and pelvis showing disease progression with either new or enlarging pulmonary metastatic nodules as well as enlarged hepatic metastatic lesions. Review of Systems REVIEW OF SYSTEMS: PSYCH: No anxiety or depression NEURO:No c/o weakness of the extremties, No facial droop, No speech abnormalities. VASCULAR: Peripheral nervous system within the normal limits no edema HEMATOLOGIC: No history of easy bleeding and bruising . No recent infections . RESPIRATORY: No cough, No SOB, No chest discomfort. IMMUNE: No infections INTEGUMENT: no rashes OPHTHALMOLOGIC: No blurry vision and no eye discharge : No dysuria or hematuria CARDIAC: No chest pain , shortness of breath , paroxysmal nocturnal dyspnea MUSCULOSKELETAL : No Aches or pains in the joints or muscles. GI: As per HPI All 13 review of systems done and negative except for above. Past Medical History Past Medical History: Cancer Additional Past Medical History / Comment(s): colorectal History of Any Multi-Drug Resistant Organisms: None Reported Past Surgical History: Orthopedic Surgery Additional Past Surgical History / Comment(s): right foot surgery, left hand surgery, mediport Past Psychological History: No Psychological Hx Reported Smoking Status: Never smoker Past Alcohol Use History: None Reported Past Drug Use History: None Reported - Past Family History Mother Family Medical History: Cancer Additional Family Medical History / Comment(s): skin ca Father Family Medical History: Hypertension Medications and Allergies Home Medications Medication Instructions Recorded Confirmed Type Docusate [Colace] 100 mg PO DAILY 20 Days #20 capsule 08/02/18 04/21/19 Rx HYDROcodone/APAP 5-325MG [Malcolm 1 tab PO Q6HR PRN 04/21/19 04/21/19 History 5-325] Allergies Allergy/AdvReac Type Severity Reaction Status Date / Time codeine AdvReac Nausea & Verified 04/21/19 13:39 Vomiting Physical Exam Vitals: Vital Signs Temp Pulse Resp BP Pulse Ox 04/21/19 16:44 79 18 127/79 99 04/21/19 13:22 98.5 F 74 18 139/94 98 04/21/19 11:03 97.6 F 108 H 18 151/103 97 Intake and Output 04/21/19 04/21/19 04/21/19 06:59 14:59 22:59 Other: Weight 70.307 kg GEN. APPEARANCE: alert, in no apparent distress HEAD EXAM: atraumatic, normocephalic, normal inspection EYE EXAM: normal appearance, PERRL, EOMI. No pallor, no icterus ENT EXAM: normal exam, mucous membranes moist NECK EXAM: normal inspection. no thyromeagly RESPIRATORY EXAM: normal lung sounds bilaterally. No wheeze or crackles CARDIOVASCULAR EXAM: regular rate, normal rhythm, normal heart sounds. GI/ABDOMINAL EXAM: soft, normal bowel sounds. non distended, no tenderness, guarding or rebound EXTREMITIES EXAM: no edema Rectal exam - was not done. 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 C. difficile has been ordered. Symptomatic management with antiemetics for nausea and vomiting. Patient's hemoglobin has been stable at 14.7 currently. Oncology has been consulted. Patient wishes to be a no code. Further recommendations to follow depending on the progress of the patient.
[2019-04-22] MEDS: SODIUM CHLORIDE 0.9% 1,000 ML IV SCH ×2 (00:21→10:35)
[2019-04-22] MEDS: MORPHINE SULFATE 4 MG/ML SYRINGE IV PRN ×5 (04:31→23:19)
[2019-04-22 08:20] LABS: Basophils % (A) 0 %; Eosinophils # (A) 0.1 k/uL (0-0.7); Eosinophils % (A) 3 %; HCT 34.9 % (39.0-53.0); HGB 12.3 gm/dL (13.0-17.5); Hyperchromasia Slight; Lymphocytes # (A) 0.6 k/uL (1.0-4.8); Lymphocytes % (A) 20 %; MCH 32.2 pg (25.0-35.0); MCHC 35.4 g/dL (31.0-37.0); Mean Platelet Volume 6.6; Monocytes # (A) 0.4 k/uL (0-1.0); Monocytes % (A) 13 %; Neutrophils # (A) 1.7 k/uL (1.3-7.7); Neutrophils % (A) 60 %; Platelet Count 193 k/uL (150-450); RBC 3.84 m/uL (4.30-5.90); RDW 13.8 % (11.5-15.5); WBC 2.8 k/uL (3.8-10.6)
[2019-04-22 08:32] LABS: African American GFR (CKD) >90 (>60 ml/min/1.73 sqM); Anion Gap 8 mmol/L; Blood Urea Nitrogen 12 mg/dL (9-20); Calcium 8.7 mg/dL (8.4-10.2); Carbon Dioxide 26 mmol/L (22-30); Chloride 104 mmol/L (98-107); Glucose 104 mg/dL (74-99); Non-African American GFR(CKD) >90 (>60 ml/min/1.73 sqM); Potassium 3.8 mmol/L (3.5-5.1); Sodium 138 mmol/L (137-145)
[2019-04-22] MEDS: DOCUSATE 100 MG CAP PO SCH (09:00)
[2019-04-22] MEDS: DIPHENOX-ATROP 2.5-0.025 MG 1 EACH TAB PO PRN ×2 (09:05→23:23)
[2019-04-22] MEDS: KETOROLAC 30 MG/ML 1 ML VIAL IVP PRN (11:48)
[2019-04-22 11:50] VITALS: BMI 24.3
[2019-04-22] MEDS ORDERED: SALT AND SODA MOUTHWASH 1,000 ML PO PRN (12:26)
--- NOTE | 2019-04-22 12:34 | P.PN ---
Subjective Progress Note Date: 04/22/19 Mr. Ayala is a 39-year-old male who was recently diagnosed with rectal cancer in July 2018, undergoing chemotherapy by Dr. Conklin, coming to the hospital with a chief complaint of nausea vomiting and diarrhea. Patient states that he has been throwing up couple of times yesterday. He has diarrhea, that is watery in consistency, with mucus and also bloody. Patient denies having any bright red blood per rectum, but his stool is mixed with blood. Patient started his second dose of chemotherapy on 04/16 and finished it on 04/18. He is scheduled for a CAT scan next week. Patient denied having any fevers, chills or rigors. No recent use of antibiotics. Patient denies having any chest pain or palpitations. No cough or difficulty breathing. No dysuria or hematuria. No headaches, blurring of vision or sinus issues. Patient denies having any sore throat. He denies having any swelling of his lower extremities. No dizziness. In the ER patient had labs done showing white count of 3.4 platelets of 201 hemoglobin at 14.7. His sodium is 137, potassium 3.7, BUN 19, creatinine 0.64. His urine analysis is negative for nitrates and leukocyte esterase. Patient also had a CT of the chest, abdomen and pelvis showing disease progression with either new or enlarging pulmonary metastatic nodules as well as enlarged hepatic metastatic lesions. 04/22/2019 maintain IV fluid hydration, nausea resolved. Continues to have diarrhea, tested negative for C. difficile colitis. Reports, evaluated by a oncology this morning. WBC 2.8, neutrophils 60, platelets 193, hemoglobin 12.3. Afebrile. Objective - Vital Signs Vital signs: Vital Signs Temp 98.6 F 04/22/19 11:52 Pulse 84 04/22/19 11:52 Resp 17 04/22/19 11:52 BP 125/78 04/22/19 11:52 Pulse Ox 99 04/22/19 11:52 Intake & Output 04/21/19 04/22/19 04/22/19 18:59 06:59 18:59 Intake Total 1200 Balance 1200 Weight 70.307 kg 70.307 kg Intake: Intake, IV Titration 900 Amount Sodium Chloride 0.9% 1, 900 000 ml @ 100 mls/hr IV . Q10H MURIEL Rx#:[id number] Oral 300 Other: # Voids 4 # Bowel Movements 7 - Exam GEN. APPEARANCE: alert and oriented 3, sitting up at bedside, no acute distress HEAD EXAM: atraumatic, normocephalic, normal inspection EYE EXAM: normal appearance, PERRL, EOMI. No pallor, no icterus ENT EXAM: normal exam, mucous membranes moist NECK EXAM: normal inspection. no thyromeagly RESPIRATORY EXAM: normal lung sounds bilaterally. No wheeze or crackles CARDIOVASCULAR EXAM: regular rate, normal rhythm, normal heart sounds. GI/ABDOMINAL EXAM: soft, nondistended, diffuse abdominal tenderness, no guarding. normal bowel sounds. EXTREMITIES EXAM: no edema NEUROLOGICAL EXAM: no focal deficits PSYCHIATRIC EXAM: normal affect, normal mood SKIN EXAM: no rash - Labs CBC & Chem 7: 04/22/19 07:20 04/22/19 07:20 Labs: Abnormal Lab Results - Last 24 Hours (Table) 04/21/19 04/21/19 04/21/19 Range/Units 11:57 11:57 17:44 WBC 3.4 L (3.8-10.6) k/uL RBC (4.30-5.90) m/uL Hgb (13.0-17.5) gm/dL Hct (39.0-53.0) % Lymphocytes # 0.5 L (1.0-4.8) k/uL Creatinine 0.64 L (0.66-1.25) mg/dL Glucose 123 H (74-99) mg/dL Ur Specific [place] >1.050 H (1.001-1.035) Urine Protein Trace H (Negative) 04/22/19 04/22/19 Range/Units 07:20 07:20 WBC 2.8 L (3.8-10.6) k/uL RBC 3.84 L (4.30-5.90) m/uL Hgb 12.3 L (13.0-17.5) gm/dL Hct 34.9 L (39.0-53.0) % Lymphocytes # 0.6 L (1.0-4.8) k/uL Creatinine 0.60 L (0.66-1.25) mg/dL Glucose 104 H (74-99) mg/dL Ur Specific [place] (1.001-1.035) Urine Protein (Negative) Assessment and Plan Assessment: Nausea vomiting and diarrhea, possibly related to current chemotherapy. 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 Nausea subsided, clear liquid diet initiated. Maintain IV fluid hydration, antidiarrheals. Oncology recommendations pending. Patient and significant other at bedside, updated on plan a care, verbalized agreement with, understanding of. Prognosis guarded given multiple complex medical issues. The impression and plan of care has been dictated as directed. : I performed a history and examination of this patient, discussed the same with the dictator. I agree with the dictator's note ,documented as a scribe. Any additional findings or plans will be noted.
--- NOTE | 2019-04-22 19:07 | P.CONS ---
History of Present Illness - Reason for Consult Consult date: 04/22/19 Intractable nausea, vomiting, diarrhea. Rectal cancer on chemo - History of Present Illness Mister Ayala is a 39-year-old white male well known to our service. The patient was diagnosed with rectal cancer with liver metastasis in 07/31. His disease was MSI stable and K DEWEY mutated. He was started on chemotherapy with FOLFIRI, with a good response based on CT scans and CEA. He did complete 12 cycles. He subsequently developed increased CEA indicating progression, and was started on FOLFOX and Avastin on 04/02/19. He is status post 2 cycles with the most recent one from 04/16/19.- 04/18/19 The patient had some nausea and vomiting as well as diarrhea lasting for 1-2 days after cycle 1. However, after cycle 2, he has had persistent nausea and vomiting, as well as multiple episodes of loose watery diarrhea, with associated mucus and occasionally small amounts of blood. This has been progressive, leading to increased weakness. He therefore came into the emergency room and was admitted for further management. He denied any fevers or chills. No history of any sick contacts. Review of Systems Constitutional: Reports poor appetite, Reports weakness, Reports weight loss Eyes: denies blurred vision, denies pain Ears: bilateral: decreased hearing, ear discharge, earache, tinnitus Ears, nose, mouth and throat: Denies headache, Denies sore throat Cardiovascular: Reports decreased exercise tolerance Respiratory: Denies cough Gastrointestinal: Reports as per HPI, Reports abdominal pain, Reports bloating, Reports diarrhea, Reports loss of appetite, Reports nausea, Reports vomiting Genitourinary: Reports as per HPI Musculoskeletal: Reports muscle weakness Integumentary: Denies pruritus, Denies rash Neurological: Reports weakness Psychiatric: Denies anxiety, Denies depression Endocrine: Reports fatigue, Reports weight change Hematologic/Lymphatic: Reports as per HPI Past Medical History Past Medical History: Cancer Additional Past Medical History / Comment(s): colorectal History of Any Multi-Drug Resistant Organisms: None Reported Past Surgical History: Orthopedic Surgery Additional Past Surgical History / Comment(s): right foot surgery, left hand surgery, mediport Past Psychological History: No Psychological Hx Reported Smoking Status: Never smoker Past Alcohol Use History: None Reported Past Drug Use History: None Reported - Past Family History Mother Family Medical History: Cancer Additional Family Medical History / Comment(s): skin ca Father Family Medical History: Hypertension Medications and Allergies Home Medications Medication Instructions Recorded Confirmed Type Docusate [Colace] 100 mg PO DAILY 20 Days #20 capsule 08/02/18 04/21/19 Rx HYDROcodone/APAP 5-325MG [[place] 1 tab PO Q6HR PRN 04/21/19 04/21/19 History 5-325] Allergies Allergy/AdvReac Type Severity Reaction Status Date / Time codeine AdvReac Nausea & Verified 04/21/19 13:39 Vomiting Physical Exam Vitals: Vital Signs Temp Pulse Pulse Pulse Resp BP BP 04/22/19 11:52 98.6 F 84 17 125/78 04/22/19 05:46 97.5 F L 88 18 130/84 04/21/19 23:08 17 04/21/19 21:18 97.6 F 85 18 133/87 04/21/19 19:10 16 04/21/19 18:31 98.4 F 91 16 126/82 04/21/19 16:44 79 18 127/79 04/21/19 13:22 98.5 F 74 18 139/94 Pulse Ox 04/22/19 11:52 99 04/22/19 05:46 97 04/21/19 23:08 04/21/19 21:18 98 04/21/19 19:10 04/21/19 18:31 97 04/21/19 16:44 99 04/21/19 13:22 98 Intake and Output 04/21/19 04/22/19 04/22/19 22:59 06:59 14:59 Intake Total 1200 Balance 1200 Intake: Intake, IV Titration 900 Amount Sodium Chloride 0.9% 1, 900 000 ml @ 100 mls/hr IV . Q10H [facility] Rx#:[id number] Oral 300 Other: # Voids 2 4 # Bowel Movements 7 Weight 70.307 kg 70.307 kg - Constitutional General appearance: no acute distress - EENT Eyes: EOMI, PERRLA ENT: hearing grossly normal, normal oropharynx - Neck Neck: no lymphadenopathy Thyroid: bilateral: normal size - Respiratory Respiratory: bilateral: CTA - Cardiovascular Rhythm: regular Heart sounds: normal: S1, S2 - Gastrointestinal General gastrointestinal: normal bowel sounds, soft Localized gastrointestinal: tender: RLQ - Integumentary Integumentary: normal - Neurologic Neurologic: CNII-XII intact - Musculoskeletal Musculoskeletal: generalized weakness, strength equal bilaterally - Psychiatric Psychiatric: A&O x's 3, appropriate affect Results CBC & Chem 7: 04/22/19 07:20 04/22/19 07:20 Labs: Abnormal Lab Results - Last 24 Hours (Table) 04/21/19 04/21/19 04/21/19 Range/Units 11:57 11:57 17:44 WBC 3.4 L (3.8-10.6) k/uL RBC (4.30-5.90) m/uL Hgb (13.0-17.5) gm/dL Hct (39.0-53.0) % Lymphocytes # 0.5 L (1.0-4.8) k/uL Creatinine 0.64 L (0.66-1.25) mg/dL Glucose 123 H (74-99) mg/dL Ur Specific Bryant >1.050 H (1.001-1.035) Urine Protein Trace H (Negative) 04/22/19 04/22/19 Range/Units 07:20 07:20 WBC 2.8 L (3.8-10.6) k/uL RBC 3.84 L (4.30-5.90) m/uL Hgb 12.3 L (13.0-17.5) gm/dL Hct 34.9 L (39.0-53.0) % Lymphocytes # 0.6 L (1.0-4.8) k/uL Creatinine 0.60 L (0.66-1.25) mg/dL Glucose 104 H (74-99) mg/dL Ur Specific Bryant (1.001-1.035) Urine Protein (Negative) CT scan - abdomen: report reviewed CT scan - chest: report reviewed CT scan - pelvis: report reviewed Assessment and Plan (1) Diarrhea Narrative/Plan: At this time this is his main complaint. He has had multiple episodes through the night. Most likely the etiology is chemotherapy related enteritis/colitis. Infectious cause would need to be ruled out. We will check stool for C. diff, and culture. As the patient has well water [place] and parasite testing would also be done. If negative for infection, he will be started on antidiarrheals. - Area is further expected to improve as he gets further out from his treatment - He will be switched to clear liquids for bowel rest, based on his symptoms, as well as right lower quadrant tenderness. His ANC is greater than 1000 Current Visit: Yes Status: Acute Code(s): R19.7 - DIARRHEA, UNSPECIFIED SNOMED Code(s): 52030396 (2) Nausea & vomiting Narrative/Plan: Most likely chemotherapy related, like shanelle above. This has improved significantly. Clear liquids and was ordered, as for diarrhea. IV anti emetics for supportive care Current Visit: Yes Status: Acute Code(s): R11.2 - NAUSEA WITH VOMITING, UNSPECIFIED SNOMED Code(s): 13567032 (3) Primary cancer of rectum with metastasis from rectum to other site Narrative/Plan: Diagnostic and therapeutic circumstances as described. The patient was recently started on new chemotherapy because of progressive CEA. He has CT of the chest abdomen and pelvis done this admission and the results were discussed with him. This appears to show possible D of some progression in subcentimeter nodules in the lung, as well as in the liver. However this was compared to the previous CAT scan done in 01/31, and therefore progression, if any, could have occurred before he started his new treatment. 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 - Therefore at this time, the plan of discharge would be to continue his current regimen. If his symptoms are determined to be due to chemotherapy (by ruling out other possibilities, such as infection, as noted above) then he may require dose adjustment with his next cycle. He will follow-up with Dr. Conklin in this regard Current Visit: Yes Status: Acute Code(s): C20 - MALIGNANT NEOPLASM OF RECTUM SNOMED Code(s): 96191752
[2019-04-23] MEDS: ZOLPIDEM 5 MG TAB PO SCH (00:32)
[2019-04-23] MEDS: SODIUM CHLORIDE 0.9% 1,000 ML IV SCH ×5 (00:33→17:18)
[2019-04-23] MEDS: MORPHINE SULFATE 4 MG/ML SYRINGE IV PRN ×5 (03:36→23:04)
[2019-04-23] MEDS: DOCUSATE 100 MG CAP PO SCH (09:29)
[2019-04-23] MEDS: DIPHENOX-ATROP 2.5-0.025 MG 1 EACH TAB PO PRN ×2 (12:39→20:26)
--- NOTE | 2019-04-23 15:41 | P.PN ---
Subjective Progress Note Date: 04/23/19 Mr. Ayala is a 39-year-old male who was recently diagnosed with rectal cancer in July 2018, undergoing chemotherapy by Dr. Conklin, coming to the hospital with a chief complaint of nausea vomiting and diarrhea. Patient states that he has been throwing up couple of times yesterday. He has diarrhea, that is watery in consistency, with mucus and also bloody. Patient denies having any bright red blood per rectum, but his stool is mixed with blood. Patient started his second dose of chemotherapy on 04/16 and finished it on 04/18. He is scheduled for a CAT scan next week. Patient denied having any fevers, chills or rigors. No recent use of antibiotics. Patient denies having any chest pain or palpitations. No cough or difficulty breathing. No dysuria or hematuria. No headaches, blurring of vision or sinus issues. Patient denies having any sore throat. He denies having any swelling of his lower extremities. No dizziness. In the ER patient had labs done showing white count of 3.4 platelets of 201 hemoglobin at 14.7. His sodium is 137, potassium 3.7, BUN 19, creatinine 0.64. His urine analysis is negative for nitrates and leukocyte esterase. Patient also had a CT of the chest, abdomen and pelvis showing disease progression with either new or enlarging pulmonary metastatic nodules as well as enlarged hepatic metastatic lesions. 04/22/2019 maintain IV fluid hydration, nausea resolved. Continues to have diarrhea, tested negative for C. difficile colitis. Reports, evaluated by a oncology this morning. WBC 2.8, neutrophils 60, platelets 193, hemoglobin 12.3. Afebrile. 04/23/2019 feels better this morning, hungry, requesting diet advancement. Reports no nausea. Continues to have cramping and diarrhea. Denies abdominal p ain. Denies lightheadedness, dizziness or focal deficits. Denies chest pain, palpitations or shortness of breath. Objective - Vital Signs Vital signs: Vital Signs Temp 97.8 F 04/23/19 04:10 Pulse 62 04/23/19 04:10 Resp 16 04/23/19 04:10 BP 137/83 04/23/19 04:10 Pulse Ox 98 04/23/19 04:10 Intake & Output 04/22/19 04/23/19 04/23/19 18:59 06:59 18:59 Intake Total 1700 Balance 1700 Weight 70.307 kg Intake: Intake, IV Titration 800 Amount Sodium Chloride 0.9% 1, 800 000 ml @ 100 mls/hr IV . Q10H [facility] Rx#:[id number] Oral 900 Other: # Voids 3 2 # Bowel Movements 0 - Exam GEN. APPEARANCE: alert and oriented 3, sitting up at bedside, no acute distress HEAD EXAM: atraumatic, normocephalic, normal inspection EYE EXAM: normal appearance, PERRL, EOMI. No pallor, no icterus ENT EXAM: normal exam, mucous membranes moist NECK EXAM: normal inspection. no thyromeagly RESPIRATORY EXAM: normal lung sounds bilaterally. No wheeze or crackles. No wheezing CARDIOVASCULAR EXAM: regular rate, normal rhythm, normal heart sounds. GI/ABDOMINAL EXAM: soft, nondistended, no tenderness, no guarding. normal bowel sounds. EXTREMITIES EXAM: no edema NEUROLOGICAL EXAM: no focal deficits PSYCHIATRIC EXAM: normal affect, normal mood SKIN EXAM: no rash - Labs CBC & Chem 7: 04/22/19 07:20 04/22/19 07:20 Labs: Microbiology - Last 24 Hours (Table) 04/21/19 21:06 Blood Culture - Preliminary Blood No Growth after 24 hours Assessment and Plan Assessment: Nausea vomiting and diarrhea, possibly gastroenteritis related to current chemotherapy,. 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 Diet ordered to advance as tolerated .Maintain IV fluid hydration, antidiarrheals. Follow closely with oncology.Prognosis guarded given multiple complex medical issues. The impression and plan of care has been dictated as directed. : I performed a history and examination of this patient, discussed the same with the dictator. I agree with the dictator's note ,documented as a scribe. Any additional findings or plans will be noted.
[2019-04-23 22:24] VITALS: RESP 16
[2019-04-24] MEDS: ZOLPIDEM 5 MG TAB PO SCH (00:42)
[2019-04-24 06:29] VITALS: BP 127/77; PULSE 71; TEMP 98
[2019-04-24 08:11] LABS: Basophils % (A) 1 %; Eosinophils # (A) 0.2 k/uL (0-0.7); Eosinophils % (A) 4 %; HCT 34.8 % (39.0-53.0); HGB 12.7 gm/dL (13.0-17.5); Hyperchromasia Slight; Lymphocytes # (A) 0.6 k/uL (1.0-4.8); Lymphocytes % (A) 15 %; MCH 32.8 pg (25.0-35.0); MCHC 36.4 g/dL (31.0-37.0); MCV 90.3 fL (80.0-100.0); Mean Platelet Volume 7.6; Monocytes # (A) 0.3 k/uL (0-1.0); Monocytes % (A) 9 %; Neutrophils # (A) 2.7 k/uL (1.3-7.7); Neutrophils % (A) 69 %; Platelet Count 226 k/uL (150-450); RBC 3.85 m/uL (4.30-5.90); RDW 14.1 % (11.5-15.5); WBC 3.9 k/uL (3.8-10.6)
[2019-04-24 08:23] LABS: African American GFR (CKD) >90 (>60 ml/min/1.73 sqM); Anion Gap 10 mmol/L; Blood Urea Nitrogen 3 mg/dL (9-20); Calcium 8.8 mg/dL (8.4-10.2); Carbon Dioxide 25 mmol/L (22-30); Chloride 103 mmol/L (98-107); Glucose 107 mg/dL (74-99); Non-African American GFR(CKD) >90 (>60 ml/min/1.73 sqM); Potassium 3.2 mmol/L (3.5-5.1); Sodium 138 mmol/L (137-145)
[2019-04-24] MEDS: KETOROLAC 30 MG/ML 1 ML VIAL IVP PRN (08:44)
[2019-04-24] MEDS: DOCUSATE 100 MG CAP PO SCH (08:57)
[2019-04-24] MEDS ORDERED: Potassium Replacement Protocol 1 EACH MISC MISCELLANE PRN (09:02)
[2019-04-24] MEDS: MORPHINE SULFATE 4 MG/ML SYRINGE IV PRN (11:54)
[2019-04-24] MEDS: POTASSIUM CHLORIDE ER 20 MEQ TAB.ER PO SCH (11:55)
--- NOTE | 2019-04-24 14:08 | P.DS ---
Providers Date of admission: 04/23/19 16:05 Expected date of discharge: 04/24/19 Attending physician: Eric Montgomery Consults: 04/21/19 13:23 Consult Physician Stat Consulting Provider: Norberto Conklin Consult Reason/Comments: Chemo reaction, nausea and vomiting Do you want consulting provider notified?: Yes Primary care physician: Eric Montgomery [facility] Course: Final Diagnoses: Nausea vomiting and diarrhea, possibly gastroenteritis related to current chemotherapy,. Rectal cancer with metastasis to lung and liver Hospital course:Mr. Ayala is a 39-year-old male who was recently diagnosed with rectal cancer in July 2018, undergoing chemotherapy by Dr. Conklin, coming to the hospital with a chief complaint of nausea vomiting and diarrhea. Patient states that he has been throwing up couple of times yesterday. He has diarrhea, that is watery in consistency, with mucus and also bloody. Patient denies having any bright red blood per rectum, but his stool is mixed with blood. Patient started his second dose of chemotherapy on 04/16 and finished it on 04/18. He is scheduled for a CAT scan next week. Patient denied having any fevers, chills or rigors. No recent use of antibiotics. Patient denies having any chest pain or palpitations. No cough or difficulty breathing. No dysuria or hematuria. No headaches, blurring of vision or sinus issues. Patient denies having any sore throat. He denies having any swelling of his lower extremities. No dizziness. In the ER patient had labs done showing white count of 3.4 platelets of 201 hemoglobin at 14.7. His sodium is 137, potassium 3.7, BUN 19, creatinine 0.64. His urine analysis is negative for nitrates and leukocyte esterase. Patient also had a CT of the chest, abdomen and pelvis showing disease progression with either new or enlarging pulmonary metastatic nodules as well as enlarged hepatic metastatic lesions. 04/22/2019 maintain IV fluid hydration, nausea resolved. Continues to have diarrhea, tested negative for C. difficile colitis. Reports, evaluated by a oncology this morning. WBC 2.8, neutrophils 60, platelets 193, hemoglobin 12.3. Afebrile. 04/23/2019 feels better this morning, hungry, requesting diet advancement. Reports no nausea. Continues to have cramping and diarrhea. Denies abdominal pain. Denies lightheadedness, dizziness or focal deficits. Denies chest pain, palpitations or shortness of breath. Significant clinical improvement. Discharged home today in a stable condition with guarded prognosis pending final DC recommendations/ clearance from oncology. - Exam GEN. APPEARANCE: alert and oriented 3, no acute distress. RESPIRATORY EXAM: normal lung sounds bilaterally. No wheeze or crackles. No wheezing CARDIOVASCULAR EXAM: regular rate, normal rhythm, normal heart sounds. GI/ABDOMINAL EXAM: soft, nondistended, no tenderness, no guarding. normal bowel sounds. NEUROLOGICAL EXAM: no focal deficits Microbiology 04/21/19 21:06 Blood Blood Culture - Preliminary No Growth after 48 hours 04/22/19 11:40 Stool Stool Culture - Preliminary The impression and plan of care has been dictated as directed. : I performed a history and examination of this patient, discussed the same with the dictator. I agree with the dictator's note ,documented as a scribe. Any additional findings or plans will be noted. Patient Condition at Discharge: Stable Plan - Discharge Summary Discharge Rx Participant: No New Discharge Prescriptions: New Diphenox-Atrop 2.5-0.025 mg [Lomotil] 1 tab PO QID PRN 3 Days #12 tab PRN Reason: Diarrhea Continue Docusate [Colace] 100 mg PO DAILY 20 Days #20 capsule HYDROcodone/APAP 5-325MG [[place] 5-325] 1 tab PO Q6HR PRN PRN Reason: Pain Discharge Medication List Docusate [Colace] 100 mg PO DAILY 20 Days #20 capsule 08/02/18 [Rx] HYDROcodone/APAP 5-325MG [[place] 5-325] 1 tab PO Q6HR PRN 04/21/19 [History] Diphenox-Atrop 2.5-0.025 mg [Lomotil] 1 tab PO QID PRN 3 Days #12 tab 04/24/19 [Rx] Follow up Appointment(s)/Referral(s): Eric Montgomery DO [Primary Care Provider] - 05/02/19 2:20 pm Norberto Conklin MD [STAFF PHYSICIAN] - 04/26/19 11:30 am Ambulatory/Diagnostic Orders: Complete Blood Count w/diff [LAB.AMB] Time Frame: 3 Days, Location: None Selected Patient Instructions/Handouts: Diphenoxylate/Atropine (By mouth), Acute Nausea and Vomiting (DC)
== END 2019-04-24 13:35 | disposition home or self-care (01) | DRG 394 ==
LOC: EC 11:02 → 3NMEDONC 13:13 → OBSVTOIN 04-23 16:05
PROVIDERS: ADMIT Family Medicine; ATTEND Family Medicine
DX: K52.1 Toxic gastroenteritis and colitis (principal); C20 Malignant neoplasm of rectum; C78.00 Secondary malignant neoplasm of unspecified lung; C78.7 Secondary malignant neoplasm of liver and intrahepatic bile duct; T45.1X5A Adverse effect of antineoplastic and immunosuppressive drugs, initial encounter; D72.819 Decreased white blood cell count, unspecified; E86.0 Dehydration; Z88.5 Allergy status to narcotic agent; Z82.49 Family history of ischemic heart disease and other diseases of the circulatory system
CPT/HCPCS: 36415; 71260; 74177; 80048; 80053; 81003; 82150; 83605; 83690; 83735; 84132; 85025; 87040; 87045; 87046; 87324; 96361; 96374; 96375; 96376; 99285

== ENCOUNTER 2019-05-12 11:46 | Emergency (ER) | payer OTHER ==
[2019-05-12 12:55] LABS: Basophils % (A) 0 %; Eosinophils # (A) 0.2 k/uL (0-0.7); Eosinophils % (A) 2 %; HCT 44.3 % (39.0-53.0); HGB 15.5 gm/dL (13.0-17.5); Lymphocytes # (A) 0.6 k/uL (1.0-4.8); Lymphocytes % (A) 7 %; MCH 33.3 pg (25.0-35.0); MCV 95.1 fL (80.0-100.0); Mean Platelet Volume 7.4; Monocytes # (A) 0.9 k/uL (0-1.0); Monocytes % (A) 11 %; Neutrophils # (A) 6.5 k/uL (1.3-7.7); Neutrophils % (A) 79 %; Platelet Count 283 k/uL (150-450); RBC 4.65 m/uL (4.30-5.90); RDW 14.7 % (11.5-15.5); WBC 8.3 k/uL (3.8-10.6)
[2019-05-12 12:59] LABS: INR 0.9 (<1.2); Partial Thromboplastin Time 26.1 sec (22.0-30.0); Prothrombin Time 9.6 sec (9.0-12.0)
[2019-05-12 13:03] LABS: ALT 22 U/L (4-49); AST 30 U/L (17-59); African American GFR (CKD) >90 (>60 ml/min/1.73 sqM); Albumin 4.6 g/dL (3.5-5.0); Alkaline Phosphatase 118 U/L (38-126); Anion Gap 12 mmol/L; Blood Urea Nitrogen 11 mg/dL (9-20); Carbon Dioxide 26 mmol/L (22-30); Chloride 100 mmol/L (98-107); Glucose 133 mg/dL (74-99); Non-African American GFR(CKD) >90 (>60 ml/min/1.73 sqM); Potassium 4.6 mmol/L (3.5-5.1); Sodium 138 mmol/L (137-145); Total Bilirubin 0.9 mg/dL (0.2-1.3); Total Protein 7.9 g/dL (6.3-8.2)
[2019-05-12] MEDS ORDERED: HYDROmorphone 1 MG/ML 1 ML SYRINGE IVP STA (13:17)
--- NOTE | 2019-05-12 13:30 | ED ---
General Adult HPI - General Chief complaint: GI Bleed Stated complaint: rectal pain Time Seen by Provider: 05/12/19 12:26 Source: patient, RN notes reviewed Mode of arrival: ambulatory Limitations: no limitations - History of Present Illness Initial comments: Patient is a pleasant 39-year-old male presenting to the emergency Department with complaints of rectal bleeding. Patient has known colorectal cancer and is on chemotherapy. Patient did have his chemotherapy changed around 5 or 6 weeks ago. The last couple of days patient has had increase of his chronic bleeding patient has also had increase rectal discomfort. Patient has had several CT s cans, last was several weeks ago. No fatigue or dyspnea or fevers. Patient has noticed follow older with the rectal bleeding. No nausea vomiting. - Related Data Home Medications Medication Instructions Recorded Confirmed HYDROcodone/APAP 5-325MG [[place] 1 tab PO Q6HR PRN 04/21/19 04/21/19 5-325] Previous Rx's Medication Instructions Recorded Docusate [Colace] 100 mg PO DAILY 20 Days #20 capsule 08/02/18 Diphenox-Atrop 2.5-0.025 mg 1 tab PO QID PRN 3 Days #12 tab 04/24/19 [Lomotil] Allergies Allergy/AdvReac Type Severity Reaction Status Date / Time codeine AdvReac Nausea & Verified 05/12/19 11:53 Vomiting Review of Systems ROS Statement: Those systems with pertinent positive or pertinent negative responses have been documented in the HPI. ROS Other: All systems not noted in ROS Statement are negative. Constitutional: Denies: fever Eyes: Denies: eye pain ENT: Denies: ear pain Respiratory: Denies: cough Cardiovascular: Denies: chest pain Endocrine: Denies: fatigue Gastrointestinal: Reports: hematochezia. Denies: abdominal pain, nausea, vomiting Genitourinary: Denies: dysuria Musculoskeletal: Denies: back pain Skin: Denies: rash Neurological: Denies: weakness Past Medical History Past Medical History: Cancer Additional Past Medical History / Comment(s): colorectal - stage IV diagnosed 08/06/18 History of Any Multi-Drug Resistant Organisms: None Reported Past Surgical History: Orthopedic Surgery Additional Past Surgical History / Comment(s): right foot surgery, left hand surgery, mediport Past Psychological History: No Psychological Hx Reported Smoking Status: Never smoker Past Alcohol Use History: None Reported Past Drug Use History: None Reported - Past Family History Mother Family Medical History: Cancer Additional Family Medical History / Comment(s): skin ca Father Family Medical History: Hypertension General Exam Limitations: no limitations General appearance: alert, in no apparent distress Head exam: Present: normocephalic Eye exam: Present: normal appearance, PERRL ENT exam: Present: normal oropharynx Neck exam: Present: normal inspection Respiratory exam: Present: normal lung sounds bilaterally Cardiovascular Exam: Present: regular rate, normal rhythm GI/Abdominal exam: Present: soft. Absent: distended, tenderness Rectal exam: Present: other (External exam with minimal fullness at the 9 o'clock position. Patient refuses internal exam.) Extremities exam: Present: normal inspection Neurological exam: Present: alert Psychiatric exam: Present: normal affect, normal mood Skin exam: Present: normal color Course Vital Signs 05/12/19 05/12/19 11:50 14:20 Temperature 97.6 F Pulse Rate 105 H 86 Respiratory 20 18 Rate Blood Pressure 162/109 147/96 O2 Sat by Pulse 98 96 Oximetry Medical Decision Making - Medical Decision Making Patient reevaluated and resting comfortably in bed. Patient family updated on results. They are made aware that there may be some increasing of size of tumor. There are also recommended to consider admission regarding bleeding and possible progression. Patient states he can make an appointment with Dr. Conklin tomorrow and refuses admission and requests discharge. Patient states previously that he has been told he will try a couple more doses of chemotherapy and otherwise oral therapy is all they have to offer. They may consider a couple of treatments with radiation for comfort. - Lab Data Result diagrams: 05/12/19 12:27 05/12/19 12:27 Lab Results 05/12/19 05/12/19 05/12/19 Range/Units 12:27 12:27 12:27 WBC 8.3 (3.8-10.6) k/uL RBC 4.65 (4.30-5.90) m/uL Hgb 15.5 (13.0-17.5) gm/dL Hct 44.3 (39.0-53.0) % MCV 95.1 (80.0-100.0) fL MCH 33.3 (25.0-35.0) pg MCHC 35.0 (31.0-37.0) g/dL RDW 14.7 (11.5-15.5) % Plt Count 283 (150-450) k/uL Neutrophils % 79 % Lymphocytes % 7 % Monocytes % 11 % Eosinophils % 2 % Basophils % 0 % Neutrophils # 6.5 (1.3-7.7) k/uL Lymphocytes # 0.6 L (1.0-4.8) k/uL Monocytes # 0.9 (0-1.0) k/uL Eosinophils # 0.2 (0-0.7) k/uL Basophils # 0.0 (0-0.2) k/uL PT (9.0-12.0) sec INR (<1.2) APTT (22.0-30.0) sec Sodium 138 (137-145) mmol/L Potassium 4.6 (3.5-5.1) mmol/L Chloride 100 (98-107) mmol/L Carbon Dioxide 26 (22-30) mmol/L Anion Gap 12 mmol/L BUN 11 (9-20) mg/dL Creatinine 0.62 L (0.66-1.25) mg/dL Est GFR (CKD-EPI)AfAm >90 (>60 ml/min/1.73 sqM) Est GFR (CKD-EPI)NonAf >90 (>60 ml/min/1.73 sqM) Glucose 133 H (74-99) mg/dL Plasma Lactic Acid Subhash 2.4 H* (0.7-2.0) mmol/L Calcium 10.0 (8.4-10.2) mg/dL Total Bilirubin 0.9 (0.2-1.3) mg/dL AST 30 (17-59) U/L ALT 22 (4-49) U/L Alkaline Phosphatase 118 (38-126) U/L Total Protein 7.9 (6.3-8.2) g/dL Albumin 4.6 (3.5-5.0) g/dL Blood Type Blood Type Recheck Bld Type Recheck Status Antibody Screen Spec Expiration Date 05/12/19 05/12/19 Range/Units 12:27 12:27 WBC (3.8-10.6) k/uL RBC (4.30-5.90) m/uL Hgb (13.0-17.5) gm/dL Hct (39.0-53.0) % MCV (80.0-100.0) fL MCH (25.0-35.0) pg MCHC (31.0-37.0) g/dL RDW (11.5-15.5) % Plt Count (150-450) k/uL Neutrophils % % Lymphocytes % % Monocytes % % Eosinophils % % Basophils % % Neutrophils # (1.3-7.7) k/uL Lymphocytes # (1.0-4.8) k/uL Monocytes # (0-1.0) k/uL Eosinophils # (0-0.7) k/uL Basophils # (0-0.2) k/uL PT 9.6 (9.0-12.0) sec INR 0.9 (<1.2) APTT 26.1 (22.0-30.0) sec Sodium (137-145) mmol/L Potassium (3.5-5.1) mmol/L Chloride (98-107) mmol/L Carbon Dioxide (22-30) mmol/L Anion Gap mmol/L BUN (9-20) mg/dL Creatinine (0.66-1.25) mg/dL Est GFR (CKD-EPI)AfAm (>60 ml/min/1.73 sqM) Est GFR (CKD-EPI)NonAf (>60 ml/min/1.73 sqM) Glucose (74-99) mg/dL Plasma Lactic Acid Subhash (0.7-2.0) mmol/L Calcium (8.4-10.2) mg/dL Total Bilirubin (0.2-1.3) mg/dL AST (17-59) U/L ALT (4-49) U/L Alkaline Phosphatase (38-126) U/L Total Protein (6.3-8.2) g/dL Albumin (3.5-5.0) g/dL Blood Type O Positive Blood Type Recheck No Previous Record Bld Type Recheck Status CABO Indicated Antibody Screen NEGATIVE Spec Expiration Date 05/15/2019 - 5900 - Radiology Data Radiology results: report reviewed (Computed tomography scan chest abdomen pelvis shows unchanged pulmonary and hepatic lesions. Right-sided rectal mass. Unchanged.) Disposition Clinical Impression: Rectal mass, Rectal bleeding Disposition: HOME SELF-CARE Condition: Stable Instructions (If sedation given, give patient instructions): Gastrointestinal Bleeding (ED) Additional Instructions: Please follow-up with Dr. Conklin tomorrow as planned. Return for increased bleeding, increased pain, vomiting, weakness or difficulty breathing, worsening symptoms or other concerns. Is patient prescribed a controlled substance at d/c from ED?: No Referrals: Eric Montgomery DO [Primary Care Provider] - 1-2 days Norberto Conklin MD [STAFF PHYSICIAN] - 1-2 days Time of Disposition: 15:28
[2019-05-12 14:21] VITALS: RESP 18
--- NOTE | 2019-05-12 14:43 | CT ---
EXAMINATION TYPE: CT ChestAbdPelvis w con DATE OF EXAM: 05/12/2019 COMPARISON: 04/21/2019 HISTORY: Colorectal cancer CT DLP: 856.5 mGycm Automated exposure control for dose reduction was used. CONTRAST: Performed with IV Contrast, patient injected with 100 mL of Isovue 300. There are few right side bronchial lymph nodes up to 1 cm. There is no mediastinal adenopathy. Heart size is normal. Ascending aorta measures 3.7 cm. There is no dissection. There is no pericardial effu maribell. There is noncalcified 10 mm nodule lateral to the right pulmonary hilum. There is 4 mm subpleur al nodule anterior left upper lobe. There is 4 mm nodule lateral aspect right lower lobe. There is 9 mm nodule lateral right lung base. There are 2 small nodules less than 5 mm in the medial posterior r ight lower lobe. There are numerous variable sized hypodense masses in the liver. These measure up to 3 cm. Spleen is intact. There is no pancreatic mass. There is no adrenal mass. Kidneys show satisfactory contrast opacification. There is no hydronephrosi s. There is no retroperitoneal adenopathy. There is some right side urinary bladder wall thickening. There is air in the urinary bladder consist ent with catheterization. There is increased wall thickening of the rectum on the right side. This is somewhat spiculated and m easures 3.6 x 3 cm and consistent with tumor. There is no ascites. There is no evidence of a bowel ob struction. There is no evidence of free air. I see no bony destructive process. Impression multiple pulmonary nodules unchanged. Multiple hepatic lesions consistent with metastatic disease unchanged. Right-sided rectal mass. Right-sided urinary bladder wall thickening that could relate to treatment c hanges and radiation. Unchanged. Correlation with the history needed. There is wall thickening of loops of ileum in the pelvis on the right side on the previous exam is im proved on today's exam.
[2019-05-12 15:40] VITALS: BP 138/99; PULSE 96; TEMP 97.9
--- NOTE | 2019-05-13 00:25 | CONS ---
CONSULTATION REASON FOR CONSULTATION: Rectal fullness and possible lower gastrointestinal bleeding. HISTORY OF PRESENT ILLNESS: This 39-year-old gentleman with a past medical history of multiple medical problems include colorectal cancer, stage IV, diagnosed in July, being followed by Dr. Conklin in the outpatient setting is apparently on chemotherapy. The patient was complaining of rectal fullness and bleeding also. The patient came to [facility] and was admitted for further evaluation and treatment. I saw the patient at the request of Dr. Russ Capellan for possible admission. There is no history of fever, rigors. No headache, loss of consciousness, seizures. A CT scan of the abdomen pelvis showed multiple pulmonary nodules, unchanged. Multiple hepatic lesions consistent metastasis status and right-sided rectal mass and right-sided urinary wall thickening also. The patient follows with Dr. Montgomery in the outpatient setting. PAST MEDICAL HISTORY: Colorectal cancer, history of DJD. MEDICATIONS: Prior to admission home medications are: 1. Hydrocodone 5 mg. 2. Colace. 3. Lomotil p.r.n.. ALLERGIES: CODEINE. FAMILY HISTORY: History of skin cancer in the family. SOCIAL HISTORY: No history of smoking. Occasional alcohol intake. REVIEW OF SYSTEMS: ENT: No diminished vision. No diminished hearing. CARDIOVASCULAR is no angina or palpitations. RESPIRATORY: As mentioned earlier. GASTROINTESTINAL: As mentioned earlier. no dysuria or hematuria. CENTRAL NERVOUS SYSTEM: No numbness or weakness. ALLERGY/IMMUNOLOGY: No asthma or hayfever. MUSCULOSKELETAL as mentioned earlier. ENDOCRINE: No history of diabetes or hypothyroidism. CONSTITUTIONAL: As mentioned earlier. DERMATOLOGY: Negative. RHEUMATOLOGY negative. PSYCHIATRY as mentioned earlier. PHYSICAL EXAMINATION: Pulse 96, blood pressure 138/99, respiration 18, temperature 97.9, pulse ox 97% on room air. HEENT: Conjunctivae normal. Neck: No JVD. CARDIOVASCULAR: S1, S2 muffled. RESPIRATION: Breath sounds diminished in the bases. No rhonchi, no crackles. ABDOMEN: Soft minimal diffuse distention present. Otherwise, nontender. No mass palpable. LEGS no edema, no swelling. NERVOUS SYSTEM: Higher functions as mentioned. Moves all 4 limbs. No focal motor or sensory deficits. LYMPHATICS: No lymph nodes palpable in the neck, axillae or groin. SKIN: No rash and no bleeding. JOINTS: No active deforming arthropathy. LAB STUDIES: CBC within normal limits. Sodium 130, potassium 4.6, glucose 133, plasma lactic acid 2.4. ASSESSMENT: 1. Rectal pain and acute lower gastrointestinal bleeding for colorectal cancer stage IV. 2. Multiple hepatic lesions and pulmonary nodules and right rectal mass in the CT scan. 3. Elevated lactic acid. 4. Increased random blood sugar. 5. History of degenerative joint disease. RECOMMENDATIONXS AND DISCUSSION: 1. In this 39-year-old gentleman with multiple complex medical issues. The CT scan showed abnormal findings. Recommend the patient for admission and continued followup. However, the patient conveyed to the ER physician that he will make an appointment with Dr. Conklin for continued followup tomorrow morning and continued workup. Otherwise also recommend the patient follow up with Dr. Montgomery closely and continue the rest of medications. Prognosis guarded. Further recommendations to follow. Thank you Dr. Capellan. AN / LUDWIG: [id number] /
== END 2019-05-12 15:40 | disposition home or self-care (01) ==
LOC: EC 11:46
DX: K62.5 Hemorrhage of anus and rectum (principal); K62.9 Disease of anus and rectum, unspecified; C19 Malignant neoplasm of rectosigmoid junction; K76.9 Liver disease, unspecified; R91.1 Solitary pulmonary nodule; R74.0 Nonspecific elevation of levels of transaminase and lactic acid dehydrogenase [LDH]; R73.9 Hyperglycemia, unspecified; Z87.39 Personal history of other diseases of the musculoskeletal system and connective tissue; Z88.5 Allergy status to narcotic agent
CPT/HCPCS: 36415; 86900; 86901; 80053; 83605; 85025; 85610; 85730; 86850; 71260; 74177; 99284; 96374; J1170; Q9967

== ENCOUNTER → 2019-06-08 | Outpatient (CLI) | payer OTHER ==
[2019-06-08 09:59] LABS: Basophils % (A) 0 %; Eosinophils # (A) 0.3 k/uL (0-0.7); Eosinophils % (A) 4 %; HCT 46.5 % (39.0-53.0); HGB 15.2 gm/dL (13.0-17.5); Lymphocytes # (A) 1.1 k/uL (1.0-4.8); Lymphocytes % (A) 13 %; MCH 31.3 pg (25.0-35.0); MCHC 32.7 g/dL (31.0-37.0); MCV 95.8 fL (80.0-100.0); Mean Platelet Volume 7.5; Monocytes # (A) 0.6 k/uL (0-1.0); Monocytes % (A) 7 %; Neutrophils # (A) 6.2 k/uL (1.3-7.7); Neutrophils % (A) 75 %; Platelet Count 321 k/uL (150-450); RBC 4.86 m/uL (4.30-5.90); RDW 12.6 % (11.5-15.5); WBC 8.3 k/uL (3.8-10.6)
== END | disposition home or self-care (01) ==
LOC: LABWHC1 09:21
PROVIDERS: ATTEND Surgery
DX: Z01.812 Encounter for preprocedural laboratory examination (principal)
CPT/HCPCS: 36415; 85025; 86850; 86900; 86901

== ENCOUNTER 2019-09-02 16:15 | Inpatient (IN) | payer OTHER ==
[2019-09-02] MEDS ORDERED: VANCOMYCIN 1,250 MG in SODIUM CHLORIDE 0.9% 250 ML IVPB STA (17:49)
[2019-09-02] MEDS ORDERED: VANCOMYCIN IV PER PHARMACY 1 EACH MISC MISCELLANE PRN (17:50)
[2019-09-02 18:57] LABS: Basophils # (A) 0.1 k/uL (0-0.2); Basophils % (A) 1 %; Eosinophils # (A) 0.3 k/uL (0-0.7); Eosinophils % (A) 2 %; HCT 36.4 % (39.0-53.0); HGB 11.6 gm/dL (13.0-17.5); Lymphocytes % (A) 8 %; MCH 25.6 pg (25.0-35.0); MCHC 31.8 g/dL (31.0-37.0); MCV 80.7 fL (80.0-100.0); Mean Platelet Volume 7.2; Monocytes # (A) 0.7 k/uL (0-1.0); Monocytes % (A) 6 %; Neutrophils # (A) 9.9 k/uL (1.3-7.7); Neutrophils % (A) 82 %; Platelet Count 530 k/uL (150-450); Poikilocytosis Slight; RBC 4.51 m/uL (4.30-5.90); RDW 14.2 % (11.5-15.5)
[2019-09-02] MEDS: PANTOPRAZOLE 40 MG/10 ML VIAL IVP SCH (20:28)
[2019-09-02] MEDS ORDERED: HYDROmorphone 2 MG TAB PO PRN ×2 (20:57→20:58)
[2019-09-02] MEDS: AMPICILLIN-SULBACTAM 3 GM in SODIUM CHLORIDE 0.9% 100 ML IVPB SCH (21:22)
[2019-09-02 22:11] LABS: ALT 32 U/L (4-49); AST 65 U/L (17-59); African American GFR (CKD) >90 (>60 ml/min/1.73 sqM); Albumin 4.1 g/dL (3.5-5.0); Alkaline Phosphatase 233 U/L (38-126); Anion Gap 10 mmol/L; Blood Urea Nitrogen 21 mg/dL (9-20); Calcium 9.2 mg/dL (8.4-10.2); Carbon Dioxide 25 mmol/L (22-30); Chloride 100 mmol/L (98-107); Glucose 113 mg/dL (74-99); Magnesium 2.3 mg/dL (1.6-2.3); Non-African American GFR(CKD) >90 (>60 ml/min/1.73 sqM); Sodium 135 mmol/L (137-145); Total Bilirubin 0.7 mg/dL (0.2-1.3); Total Protein 7.8 g/dL (6.3-8.2)
--- NOTE | 2019-09-03 00:21 | CONS ---
CONSULTATION DATE OF SERVICE: 09/02/2019 REASON FOR CONSULTATION: Right gluteal abscess and cellulitis. HISTORY OF PRESENT ILLNESS: The patient is a 39-year-old male with a past medical history significant for metastatic colon cancer in this patient status post diverting colostomy and Mediport and is currently on oral chemo. The patient mentioning he did developed a painful area on his right gluteal area a few days ago for which the patient initially went to [facility] where the patient did have a CT, it did show some soft tissue inflammation but no definite abscess. The patient did not mention he was given an antibiotic. Subsequently the patient was evaluated by his oncology PA where the patient was referred to initially Dermatology. Dr. Samson did an I and D in the office, nothing came out and the patient was started on Bactrim DS; however the patient continued to have some swelling, irritation and pain to the area. Patient described the pain to be throbbing, almost 10 out of 10 severe. Today when he was driving the car, he thought the area opened up and he did have some drainage of the abscess. This case was discussed with me by Oncology PA. It was recommend that the patient be admitted to hospital and be evaluated by Surgery for I and D of this area further as well as IV antibiotic therapy. The patient was admitted to the hospital. I was asked to see the patient for further recommendation regarding antibiotic therapy. He has been empirically started on vancomycin. Denies any previous history of skin and soft tissue infection as such. REVIEW OF SYSTEMS: Positive points have been mentioned in HPI. Rest of the systems are negative. PAST MEDICAL HISTORY: Metastatic colon cancer. PAST SURGICAL HISTORY: Mediport placement, of the colorectal tumor and diverting colostomy, left hand surgery. SOCIAL HISTORY: Negative for smoking, drinking or drug use. FAMILY HISTORY: Mother history of skin cancer. Father history of hypertension. ALLERGIES: Allergies to CODEINE. MEDICATIONS: Medications include the patient is currently on vancomycin, Protonix, Zestril, Dilaudid. PHYSICAL EXAMINATION: On examination, blood pressure is 129/78 with a pulse of 86, temperature 98.1. He is 99% on room air. General description is a middle-aged male up in the bed in no distress. No tachypnea or accessory muscle of respiration use. HEENT: Examination shows slight pallor. No scleral icterus. Oral mucous membrane is dry. NECK: Trachea central. No thyromegaly. LUNGS: Unlabored breathing, clear to auscultation anteriorly. HEART: S1, S2. Regular rate and rhythm. No added sounds. ABDOMEN: Soft, no tenderness. No rigidity. EXTREMITIES: No edema of feet. SKIN EXAMINATION: Examination of the skin to the right scrotal area did have an area of induration, minimal swelling and redness and painful to touch. No purulent area was noticed or any purulent drainage could be cultured. NEUROLOGICAL: Patient is awake, alert, oriented x3. Mood and affect normal. LABS: Hemoglobin is 11.6, white count of 12. BUN of 21, creatinine 1.01. Electrolytes have been normal. AST was 65. DIAGNOSTIC IMPRESSION AND PLAN: Patient with right gluteal abscess and cellulitis, possibly started as wound need to cover for both gram-positive skin oneyda. However, in view of the close proximity to the perirectal area, also cover for the gram-negative aerobes and anaerobes. PLAN: 1. Await surgical evaluation for drainage of this abscess and culture should be obtained both aerobic and anaerobic. 2. Vancomycin, pharmacy to dose, target of 15, while watching his kidney function and vancomycin trough closely. 3. We will add Unasyn 3 grams q.6 hours. 4. We will follow on his clinical condition and culture to further adjust medication if needed. Thank you for this consultation. Will follow this patient along with you. MMODL / IJN: [id number] /
[2019-09-03] MEDS: AMPICILLIN-SULBACTAM 3 GM in SODIUM CHLORIDE 0.9% 100 ML IVPB SCH ×5 (02:03→23:41)
[2019-09-03] MEDS: HYDROmorphone 2 MG TAB PO PRN ×6 (02:03→23:41)
[2019-09-03] MEDS ORDERED: VANCOMYCIN 1,250 MG in SODIUM CHLORIDE 0.9% 250 ML IVPB SCH (04:00)
[2019-09-03] MEDS: LISINOPRIL 10 MG TAB PO SCH (07:31)
[2019-09-03] MEDS: PANTOPRAZOLE 40 MG/10 ML VIAL IVP SCH (07:31)
[2019-09-03 09:23] LABS: Basophils # (A) 0.1 k/uL (0-0.2); Basophils % (A) 1 %; Eosinophils # (A) 0.4 k/uL (0-0.7); Eosinophils % (A) 3 %; HCT 39.9 % (39.0-53.0); HGB 12.8 gm/dL (13.0-17.5); Lymphocytes % (A) 7 %; MCH 26.1 pg (25.0-35.0); MCV 81.5 fL (80.0-100.0); Mean Platelet Volume 7.3; Monocytes # (A) 1.1 k/uL (0-1.0); Monocytes % (A) 7 %; Neutrophils # (A) 11.5 k/uL (1.3-7.7); Neutrophils % (A) 81 %; Platelet Count 583 k/uL (150-450); RBC 4.89 m/uL (4.30-5.90); RDW 14.4 % (11.5-15.5); WBC 14.2 k/uL (3.8-10.6)
[2019-09-03] MEDS ORDERED: ACETAMINOPHEN TAB 325 MG TAB PO PRN (09:28)
[2019-09-03 09:34] LABS: African American GFR (CKD) >90 (>60 ml/min/1.73 sqM); Anion Gap 11 mmol/L; Blood Urea Nitrogen 16 mg/dL (9-20); Calcium 9.5 mg/dL (8.4-10.2); Carbon Dioxide 25 mmol/L (22-30); Chloride 98 mmol/L (98-107); Glucose 107 mg/dL (74-99); Non-African American GFR(CKD) >90 (>60 ml/min/1.73 sqM); Potassium 5.4 mmol/L (3.5-5.1); Sodium 134 mmol/L (137-145)
[2019-09-03] MEDS: MAG HYDROX/AL HYDROX/SIMETH 30 ML, LIDOCAINE VISCOUS 30 ML, diphenhydrAMINE ELIXIR 75 M... PO SCH ×12 (10:19→20:58)
--- NOTE | 2019-09-03 11:04 | P.GSCN ---
<Ayde Chau - Last Filed: 09/03/19 13:35> History of Present Illness Consult date: 09/03/19 Reason for Consult: buttock abscess Requesting physician: Lily Saavedra History of present illness: CHIEF COMPLAINT: Buttock abscess HISTORY OF PRESENT ILLNESS: 39-year-old male with a history of stage IV rectal cancer who is currently on oral chemotherapy presented to the emergency room for chief complaint of buttock abscess. Patient states he was evaluated last week at [facility] and was placed on antibiotics and discharged home. He reports he saw Dr. Samson last who attempted I&D in the office. Patient reports there was no drainage from the area at that time. Patient repor ts the area "broke open" yesterday and has been draining large amounts of fluid. PAST MEDICAL HISTORY: See list. PAST SURGICAL HISTORY: See list. SOCIAL HISTORY: No illicit drug use. REVIEW OF SYSTEMS: CONSTITUTIONAL: Denies fever or chills. HEENT: Denies blurred vision, vision changes, or eye pain. Denies hemoptysis CARDIOVASCULAR: Denies chest pain or pressure. RESPIRATORY: No shortness of breath. GASTROINTESTINAL: Refer to HPI for pertinent findings HEMATOLOGIC: Denies bleeding disorders. GENITOURINARY: Denies any blood in urine. SKIN: Denies pruitis. Denies rash. PHYSICAL EXAM: VITAL SIGNS: Reviewed. GENERAL: Well-developed in no acute distress. HEENT: No sclera icterus. Extraocular movements grossly intact. Moist buccal mucosa. Head is atraumatic, normocephalic. ABDOMEN: Soft. Nondistended. Nontender. Ostomy with stool noted. NEUROLOGIC: Alert and oriented. Cranial nerves II through XII grossly intact. SKIN: Right buttock with small area of induration and erythema. Small pinhole area with purulent serosanguineous drainage. Area is very tender with mild palpation LABORATORY DATA: WBC 14.2. Hemoglobin 12.8. Platelet count 583. Neutrophils 11.5. Sodium 134. Potassium 5.4. IMAGING: None available ASSESSMENT: 1. Buttock abscess 2. Stage 4 rectal cancer PLAN: -Continue antibiotics per Dr. Bennett -Cultures ordered. Await results -Pain control. Continue Dilaudid. Add Toradol PRN -Dr. Arzate will re-evaluate patient this afternoon for possible I&D Nurse practitioner note has been reviewed by physician. Signing provider agrees with the documented findings, assessment, and plan of care. Past Medical History Past Medical History: Cancer Additional Past Medical History / Comment(s): colorectal - stage IV diagnosed 08/06/18 History of Any Multi-Drug Resistant Organisms: None Reported Past Surgical History: Orthopedic Surgery Additional Past Surgical History / Comment(s): right foot surgery, left hand surgery, mediport Past Anesthesia/Blood Transfusion Reactions: No Reported Reaction Past Psychological History: No Psychological Hx Reported Smoking Status: Never smoker Past Alcohol Use History: None Reported Past Drug Use History: None Reported - Past Family History Mother Family Medical History: Cancer Additional Family Medical History / Comment(s): skin ca Father Family Medical History: Hypertension Medications and Allergies Home Medications Medication Instructions Recorded Confirmed Type HYDROmorphone [Dilaudid] 4 - 8 mg PO Q4-6H PRN 09/02/19 09/02/19 History Ibuprofen [Advil] 400 mg PO Q8HR PRN 09/02/19 09/02/19 History Lisinopril [Zestril] 10 mg PO DAILY 09/02/19 09/02/19 History Regorafenib [Stivarga] 120 mg PO DIRECTED 09/02/19 09/02/19 History Sulfamethox-Tmp 800-160Mg [Bactrim 1 tab PO Q12HR 09/02/19 09/02/19 History DS 800-160 mg] Allergies Allergy/AdvReac Type Severity Reaction Status Date / Time codeine AdvReac Nausea & Verified 09/02/19 18:56 Vomiting Surgical - Exam Vital Signs Temp Pulse Resp BP Pulse Ox 98.3 F 86 16 124/78 98 09/02/19 18:05 09/02/19 18:05 09/02/19 18:05 09/02/19 18:05 09/02/19 18:05 Results - Labs 09/03/19 08:24 09/03/19 08:24 Abnormal Lab Results - Last 24 Hours (Table) 09/02/19 09/02/19 09/03/19 Range/Units 18:30 18:30 08:24 WBC 12.0 H 14.2 H (3.8-10.6) k/uL Hgb 11.6 L 12.8 L (13.0-17.5) gm/dL Hct 36.4 L (39.0-53.0) % Plt Count 530 H 583 H (150-450) k/uL Neutrophils # 9.9 H 11.5 H (1.3-7.7) k/uL Monocytes # 1.1 H (0-1.0) k/uL Sodium 135 L (137-145) mmol/L Potassium (3.5-5.1) mmol/L BUN 21 H (9-20) mg/dL Glucose 113 H (74-99) mg/dL AST 65 H (17-59) U/L Alkaline Phosphatase 233 H (38-126) U/L 09/03/19 Range/Units 08:24 WBC (3.8-10.6) k/uL Hgb (13.0-17.5) gm/dL Hct (39.0-53.0) % Plt Count (150-450) k/uL Neutrophils # (1.3-7.7) k/uL Monocytes # (0-1.0) k/uL Sodium 134 L (137-145) mmol/L Potassium 5.4 H (3.5-5.1) mmol/L BUN (9-20) mg/dL Glucose 107 H (74-99) mg/dL AST (17-59) U/L Alkaline Phosphatase (38-126) U/L Diabetes panel 09/02/19 09/03/19 Range/Units 18:30 08:24 Sodium 135 L 134 L (137-145) mmol/L Potassium 5.0 5.4 H (3.5-5.1) mmol/L Chloride 100 98 (98-107) mmol/L Carbon Dioxide 25 25 (22-30) mmol/L BUN 21 H 16 (9-20) mg/dL Creatinine 1.01 1.00 (0.66-1.25) mg/dL Glucose 113 H 107 H (74-99) mg/dL Calcium 9.2 9.5 (8.4-10.2) mg/dL AST 65 H (17-59) U/L ALT 32 (4-49) U/L Alkaline Phosphatase 233 H (38-126) U/L Total Protein 7.8 (6.3-8.2) g/dL Albumin 4.1 (3.5-5.0) g/dL Calcium panel 09/02/19 09/03/19 Range/Units 18:30 08:24 Calcium 9.2 9.5 (8.4-10.2) mg/dL Albumin 4.1 (3.5-5.0) g/dL Pituitary panel 09/02/19 09/03/19 Range/Units 18:30 08:24 Sodium 135 L 134 L (137-145) mmol/L Potassium 5.0 5.4 H (3.5-5.1) mmol/L Chloride 100 98 (98-107) mmol/L Carbon Dioxide 25 25 (22-30) mmol/L BUN 21 H 16 (9-20) mg/dL Creatinine 1.01 1.00 (0.66-1.25) mg/dL Glucose 113 H 107 H (74-99) mg/dL Calcium 9.2 9.5 (8.4-10.2) mg/dL Adrenal panel 09/02/19 09/03/19 Range/Units 18:30 08:24 Sodium 135 L 134 L (137-145) mmol/L Potassium 5.0 5.4 H (3.5-5.1) mmol/L Chloride 100 98 (98-107) mmol/L Carbon Dioxide 25 25 (22-30) mmol/L BUN 21 H 16 (9-20) mg/dL Creatinine 1.01 1.00 (0.66-1.25) mg/dL Glucose 113 H 107 H (74-99) mg/dL Calcium 9.2 9.5 (8.4-10.2) mg/dL Total Bilirubin 0.7 (0.2-1.3) mg/dL AST 65 H (17-59) U/L ALT 32 (4-49) U/L Alkaline Phosphatase 233 H (38-126) U/L Total Protein 7.8 (6.3-8.2) g/dL Albumin 4.1 (3.5-5.0) g/dL <Lee Arzate - Last Filed: 09/03/19 16:03> History of Present Illness History of present illness: As above. Patient with stage IV rectal carcinoma presenting with right buttock abscess. Small area of drainage with underlying fluctuant area measuring 2 x 2 centimeters. Likely this is fistulization from advanced rectal cancer. We will proceed with CT pelvis at this time to better identify the source of this infection. Patient will benefit from incision and drainage to help control the patient's pain and drainage. Risks of bleeding, infection, chronic wound formation, persistent drainage, possible need for additional procedures reviewed. He understands and wishes to proceed. Surgical - Exam Vital Signs Temp Pulse Resp BP Pulse Ox 98.3 F 86 16 124/78 98 09/02/19 18:05 09/02/19 18:05 09/02/19 18:05 09/02/19 18:05 09/02/19 18:05 Results - Labs 09/03/19 08:24 09/03/19 08:24 Abnormal Lab Results - Last 24 Hours (Table) 09/02/19 09/02/19 09/03/19 Range/Units 18:30 18:30 08:24 WBC 12.0 H 14.2 H (3.8-10.6) k/uL Hgb 11.6 L 12.8 L (13.0-17.5) gm/dL Hct 36.4 L (39.0-53.0) % Plt Count 530 H 583 H (150-450) k/uL Neutrophils # 9.9 H 11.5 H (1.3-7.7) k/uL Monocytes # 1.1 H (0-1.0) k/uL Sodium 135 L (137-145) mmol/L Potassium (3.5-5.1) mmol/L BUN 21 H (9-20) mg/dL Glucose 113 H (74-99) mg/dL AST 65 H (17-59) U/L Alkaline Phosphatase 233 H (38-126) U/L 09/03/19 Range/Units 08:24 WBC (3.8-10.6) k/uL Hgb (13.0-17.5) gm/dL Hct (39.0-53.0) % Plt Count (150-450) k/uL Neutrophils # (1.3-7.7) k/uL Monocytes # (0-1.0) k/uL Sodium 134 L (137-145) mmol/L Potassium 5.4 H (3.5-5.1) mmol/L BUN (9-20) mg/dL Glucose 107 H (74-99) mg/dL AST (17-59) U/L Alkaline Phosphatase (38-126) U/L Diabetes panel 09/02/19 09/03/19 Range/Units 18:30 08:24 Sodium 135 L 134 L (137-145) mmol/L Potassium 5.0 5.4 H (3.5-5.1) mmol/L Chloride 100 98 (98-107) mmol/L Carbon Dioxide 25 25 (22-30) mmol/L BUN 21 H 16 (9-20) mg/dL Creatinine 1.01 1.00 (0.66-1.25) mg/dL Glucose 113 H 107 H (74-99) mg/dL Calcium 9.2 9.5 (8.4-10.2) mg/dL AST 65 H (17-59) U/L ALT 32 (4-49) U/L Alkaline Phosphatase 233 H (38-126) U/L Total Protein 7.8 (6.3-8.2) g/dL Albumin 4.1 (3.5-5.0) g/dL Calcium panel 09/02/19 09/03/19 Range/Units 18:30 08:24 Calcium 9.2 9.5 (8.4-10.2) mg/dL Albumin 4.1 (3.5-5.0) g/dL Pituitary panel 09/02/19 09/03/19 Range/Units 18:30 08:24 Sodium 135 L 134 L (137-145) mmol/L Potassium 5.0 5.4 H (3.5-5.1) mmol/L Chloride 100 98 (98-107) mmol/L Carbon Dioxide 25 25 (22-30) mmol/L BUN 21 H 16 (9-20) mg/dL Creatinine 1.01 1.00 (0.66-1.25) mg/dL Glucose 113 H 107 H (74-99) mg/dL Calcium 9.2 9.5 (8.4-10.2) mg/dL Adrenal panel 09/02/19 09/03/19 Range/Units 18:30 08:24 Sodium 135 L 134 L (137-145) mmol/L Potassium 5.0 5.4 H (3.5-5.1) mmol/L Chloride 100 98 (98-107) mmol/L Carbon Dioxide 25 25 (22-30) mmol/L BUN 21 H 16 (9-20) mg/dL Creatinine 1.01 1.00 (0.66-1.25) mg/dL Glucose 113 H 107 H (74-99) mg/dL Calcium 9.2 9.5 (8.4-10.2) mg/dL Total Bilirubin 0.7 (0.2-1.3) mg/dL AST 65 H (17-59) U/L ALT 32 (4-49) U/L Alkaline Phosphatase 233 H (38-126) U/L Total Protein 7.8 (6.3-8.2) g/dL Albumin 4.1 (3.5-5.0) g/dL
[2019-09-03] MEDS: KETOROLAC 30 MG/ML 1 ML VIAL IVP PRN ×2 (12:12→20:55)
[2019-09-03] MEDS: VANCOMYCIN 1,250 MG in SODIUM CHLORIDE 0.9% 250 ML IVPB SCH (14:34)
[2019-09-03] MEDS: NICOTINE 14MG/24HR PATCH TRANSDERM SCH (15:54)
--- NOTE | 2019-09-03 17:02 | PN ---
PROGRESS NOTE DATE OF SERVICE: 09/03/2019 REASON FOR FOLLOWUP: Left leg abscess and cellulitis. INTERVAL HISTORY: The patient is currently afebrile. He was seen on rounds this morning. The patient has been complaining of pain to the left gluteal area and did mention there is some drainage. The patient denies having any chest pain or shortness of breath or cough. No abdominal pain or diarrhea. PHYSICAL EXAMINATION: Blood pressure 130/76, pulse of 75, temperature 97.7. He is 95% on room air. General description is a middle-aged male lying in bed in no distress. RESPIRATORY SYSTEM: Unlabored breathing. Clear to auscultation anteriorly. HEART: S1, S2. Regular rate and rhythm. ABDOMEN: Soft. No tenderness. LABS: Hemoglobin is 12.8, white count 14.2, BUN of 15, creatinine 1.0. Blood culture so far pending. DIAGNOSTIC IMPRESSION AND PLAN: Patient with left gluteal abscess, awaiting surgical incision and drainage and deep cultures. Keep the patient on Unasyn and vancomycin; adjust antibiotics further based on culture report. Continue with supportive care. MMODL / IJN: [id number] / W[place]EN
[2019-09-03] MEDS: IOPAMIDOL CONTRAST (ORAL USE) VIAL PO PRN ×2 (19:24→20:11)
--- NOTE | 2019-09-03 20:01 | P.HPIM ---
History of Present Illness H&P Date: 09/03/19 Chief Complaint: right gluteal fold abscess/cellulitis This is a 39-year-old gentleman with history of stage IV rectal CA, currently on oral chemotherapy, stirvarga, directly admitted for a large right gluteal fold abscess/cellulitis failed outpatient treatment. Evaluated last week at [facility], discharged on antibiotics.Followed up with Dr. Samson, Dermatology on , attempted an I&D with no drainage obtained, placed on Bactrim. Yesterday abscess erupted with significant drainage. Afebrile, T-max 99. WBC 12 on admission up to 14.2 currently. BUN 16, creatinine 1.0. Potassium up to 5.4. Denies chest pain, palpitations or shortness of breath. Denies lightheadedness, dizziness or focal deficits. Unasyn and vancomycin initiated. Review of Systems Constitutional: Denied any fatigue denied any fever. Cardio vascular: denied any chest pain, palpitations Gastrointestinal denied any nausea vomiting Pulmonary: Denied any shortness of breath cough Neurologic denied any new focal deficits ROS Statement: Those systems with pertinent positive or pertinent negative responses have been documented in the HPI. ROS Other: All systems not noted in ROS Statement are negative. Past Medical History Past Medical History: Cancer Additional Past Medical History / Comment(s): colorectal - stage IV diagnosed 08/06/18 History of Any Multi-Drug Resistant Organisms: None Reported Past Surgical History: Orthopedic Surgery Additional Past Surgical History / Comment(s): right foot surgery, left hand surgery, mediport Past Anesthesia/Blood Transfusion Reactions: No Reported Reaction Past Psychological History: No Psychological Hx Reported Smoking Status: Never smoker Past Alcohol Use History: None Reported Past Drug Use History: None Reported - Past Family History Mother Family Medical History: Cancer Additional Family Medical History / Comment(s): skin ca Father Family Medical History: Hypertension Medications and Allergies Home Medications Medication Instructions Recorded Confirmed Type HYDROmorphone [Dilaudid] 4 - 8 mg PO Q4-6H PRN 09/02/19 09/02/19 History Ibuprofen [Advil] 400 mg PO Q8HR PRN 09/02/19 09/02/19 History Lisinopril [Zestril] 10 mg PO DAILY 09/02/19 09/02/19 History Regorafenib [Stivarga] 120 mg PO DIRECTED 09/02/19 09/02/19 History Sulfamethox-Tmp 800-160Mg [Bactrim 1 tab PO Q12HR 09/02/19 09/02/19 History DS 800-160 mg] Allergies Allergy/AdvReac Type Severity Reaction Status Date / Time codeine AdvReac Nausea & Verified 09/02/19 18:56 Vomiting Physical Exam Vitals: Vital Signs Temp Pulse Resp BP Pulse Ox 09/03/19 17:41 75 16 09/03/19 17:00 97.9 F 69 16 134/69 98 09/03/19 15:33 97.7 F 75 16 130/76 97 09/03/19 08:18 99.0 F 84 16 130/73 96 09/03/19 02:03 98.6 F 92 18 147/77 96 09/02/19 19:11 98.1 F 86 18 129/78 99 Intake and Output 09/03/19 09/03/19 09/03/19 06:59 14:59 22:59 Intake Total 500 Balance 500 Intake: Intake, IV Titration 100 Amount Ampicillin-Sulbactam 3 gm 100 In Sodium Chloride 0.9% 100 ml @ 200 mls/hr IVPB Q6HR [facility] Rx#:[id number] Oral 400 Other: Voiding Method Indwelling Catheter Indwelling Catheter Indwelling Catheter # Voids 1 # Bowel Movements 2 PHYSICAL EXAM: VITAL SIGNS: As above GENERAL: Sitting up in bed, no acute distress HEENT: Conjunctivae normal. eyes normal. Oral mucosa reddened,sore NECK: No JVD. No thyroid enlargement. No LNs CARDIOVASCULAR: S1, S2 regular.. No murmur RESPIRATION: Breath sounds diminished in the bases. No rhonchi or crackles. No bronchial breathing. ABDOMEN: Soft, nontender . No guarding. no masses palpable. Suprapubic catheter , ostomy bags X 2, Bowel sounds heard. LEGS: No edema. no swelling. Skin: Right Gluteal fold/leg large abscess reddened with cellulitis and foul smelling purulent serosanguineous drainage,approx. 5in wide X 3 inches wide- refer to nursing documentation/measurement of wound. PSYCHIATRY: Alert and oriented X3, mood and affect normal. NERVOUS SYSTEM: Cranial N 2-12 grossly normal. Moves all 4 limbs. Diffuse weakness No focal deficits. Strength and sensation grossly intact.. Results CBC & Chem 7: 09/03/19 08:24 09/03/19 08:24 Labs: Abnormal Lab Results - Last 24 Hours (Table) 09/02/19 09/03/19 09/03/19 Range/Units 18:30 08:24 08:24 WBC 14.2 H (3.8-10.6) k/uL Hgb 12.8 L (13.0-17.5) gm/dL Plt Count 583 H (150-450) k/uL Neutrophils # 11.5 H (1.3-7.7) k/uL Monocytes # 1.1 H (0-1.0) k/uL Sodium 135 L 134 L (137-145) mmol/L Potassium 5.4 H (3.5-5.1) mmol/L BUN 21 H (9-20) mg/dL Glucose 113 H 107 H (74-99) mg/dL AST 65 H (17-59) U/L Alkaline Phosphatase 233 H (38-126) U/L Microbiology - Last 24 Hours (Table) 09/03/19 11:00 Anaerobic Culture - Preliminary Buttock 09/03/19 11:00 Wound Culture - Preliminary Buttock Thrombosis Risk Factor Assmnt - Choose All That Apply Any of the Below Risk Factors Present?: No Other Risk Factors: No Other congenital or acquired thrombophilia - If yes, enter type in comment: No Thrombosis Risk Factor Assessment Level: Very Low Risk Assessment and Plan Assessment: Right gluteal fold abscess, I&D pending Stage IV rectal CA Acute renal failure Hyperkalemia Plan: Continue on current medication regime, monitoring and symptomatic treatment. Patient to be transferred to oncology unit. Gentle IV fluid hydration, low potassium diet. Surgery consulted for I&D. Pain management. Antibiotics as per infectious disease. Cultures ordered. Oncology consulted. Cools solution ordered. Home meds have been reviewed and resumed accordingly. Close monitoring of renal function, electrolytes with repeat labs ordered for a.m. Further recommendations to follow. The impression and plan of care has been dictated as directed. : I performed a history and examination of this patient, discussed the same with the dictator. I agree with the dictator's note ,documented as a scribe. Any additional findings or plans will be noted.
[2019-09-03] MEDS: SODIUM CHLORIDE 0.9% 1,000 ML IV SCH (20:58)
--- NOTE | 2019-09-03 21:19 | CT ---
EXAMINATION TYPE: CT pelvis w con DATE OF EXAM: 09/03/2019 COMPARISON: 05/12/2019 HISTORY: buttock abscess, rectal cancer Automated exposure control for dose reduction was used. Contrast-enhanced CT of the pelvis was perfor med from the lower poles of the kidneys through the pelvis. CONTRAST: 100ml/[id number] and oral contrast FINDINGS: There is subcutaneous attenuation within the right buttock medially with internal foci of air measuri ng approximately 4.5 x 2.1 cm. This area of abnormal attenuation extends cranially up to the level of the sacrococcygeal region to the right of midline where there are additional internal foci of air fo r example axial image 35 of 70. There may be tiny internal foci of fluid suggestive of abscess howeve r a drainable collection is not identified with certainty. No definite bone destruction is appreciate d at this time. Cutaneous defects also noted. There is evidence of the rectal wall thickening and mass which has enlarged from prior study currentl y measuring 8.9 x 6.1 cm versus 4.8 x 4.5 cm previously. There appears to be infiltration into the ri ght pelvic sidewall. Presacral extension noted as well. Aforementioned inflammatory change may be con tiguous with mass extension and therefore could reflect fistula. Suprapubic Prakash catheter is noted to be in place. There is interval development of a right-sided hyd ronephrosis although the right kidney is partially imaged. There is dilatation of the right ureter. T he right ureter appears to extend into the aforementioned rectal mass. Left-sided ureter is of normal caliber. Mid abdominal ostomy is noted. Small bowel is of normal caliber. Remaining colon is Within normal limits. IMPRESSION: 1. Enlarging rectal mass with extension into the right-sided pelvic sidewall and presacral extension. As noted there is subcutaneous buttock attenuation with internal foci of air which could reflect fis tulous communication from the aforementioned mass versus formation of decubitus ulcers. No drainable collection is identified at this time. The above. 2. Right-sided hydronephrosis secondary to mass infiltration of the distal right ureter.
[2019-09-04] MEDS: VANCOMYCIN 1,250 MG in SODIUM CHLORIDE 0.9% 250 ML IVPB SCH ×2 (03:56→15:39)
[2019-09-04] MEDS: HYDROmorphone 2 MG TAB PO PRN ×4 (03:56→23:06)
[2019-09-04] MEDS: AMPICILLIN-SULBACTAM 3 GM in SODIUM CHLORIDE 0.9% 100 ML IVPB SCH ×4 (06:10→23:49)
[2019-09-04 07:00] LABS: Basophils # (A) 0.1 k/uL (0-0.2); Basophils % (A) 1 %; Eosinophils # (A) 0.5 k/uL (0-0.7); Eosinophils % (A) 4 %; HCT 33.7 % (39.0-53.0); HGB 10.7 gm/dL (13.0-17.5); Hypochromasia Slight; Lymphocytes % (A) 9 %; MCH 25.5 pg (25.0-35.0); MCHC 31.7 g/dL (31.0-37.0); MCV 80.3 fL (80.0-100.0); Mean Platelet Volume 7.2; Monocytes # (A) 0.7 k/uL (0-1.0); Monocytes % (A) 6 %; Neutrophils # (A) 8.7 k/uL (1.3-7.7); Neutrophils % (A) 79 %; Platelet Count 514 k/uL (150-450); Poikilocytosis Slight; RDW 13.7 % (11.5-15.5)
[2019-09-04 07:21] LABS: African American GFR (CKD) >90 (>60 ml/min/1.73 sqM); Anion Gap 6 mmol/L; Blood Urea Nitrogen 15 mg/dL (9-20); Calcium 8.7 mg/dL (8.4-10.2); Carbon Dioxide 28 mmol/L (22-30); Chloride 103 mmol/L (98-107); Glucose 109 mg/dL (74-99); Non-African American GFR(CKD) >90 (>60 ml/min/1.73 sqM); Potassium 5.2 mmol/L (3.5-5.1); Sodium 137 mmol/L (137-145)
[2019-09-04] MEDS: NICOTINE 14MG/24HR PATCH TRANSDERM SCH (09:18)
[2019-09-04] MEDS: MAG HYDROX/AL HYDROX/SIMETH 30 ML, LIDOCAINE VISCOUS 30 ML, diphenhydrAMINE ELIXIR 75 M... PO SCH ×12 (09:18→22:14)
[2019-09-04] MEDS: LISINOPRIL 10 MG TAB PO SCH (09:18)
[2019-09-04] MEDS: PANTOPRAZOLE 40 MG TABLET PO SCH (09:18)
[2019-09-04] MEDS: KETOROLAC 30 MG/ML 1 ML VIAL IVP PRN ×2 (11:38→23:49)
[2019-09-04 11:39] VITALS: BMI 23.0
--- NOTE | 2019-09-04 12:46 | P.CONS ---
History of Present Illness - Reason for Consult Consult date: 09/04/19 Rectal Cancer on Treatment Requesting physician: Lily Saavedra - Chief Complaint Rectal Abscess - History of Present Illness This is a very nice patient who prsented to [facility] in 07/2018 with rectal of few months duration and change in stool caliber, he was found to have hypochromic microcytic anemia (hemoglobin 10.8gm/dl),had a colonoscopy on 08/07/2018 which revealed an obstructing mass right at the anus,biopsy was positive for moderatelly differentiated adenocarcinoma. On 08/06/2018,CT scan of abdomen/pelvis revealed large rectosigmoid mass with effacement of seminal vesicule on the right and multiple suspicious liver lesions,CT scan of chest was negative. MSI-Stable,KRAS mutant,NRAS,BRAF negative and HER2/ZEINAB are negative CEA on 08/21/2018 was 346.9 He started FOLFIRI regimen on 08/14/2018.(no avastin statrted due to concern of possible developing bowel obstruction) On 09/20/2018,CEA was 69. On 10/15/2018,repeat CT scan of chest/abdomen/pelvis revealed significant improvement On 10/30/2018,CEA was down to 24.5 On 12/26/2018,CEA was down to 20. On 01/22/2019,repeat CT scan chest/abdomen/pelvis revealed futher improvement in his disease. On 01/24/2019,CEA was 23.8. On 02/21/2019,CEA was up to 67.5 and FOLFIR was discontinued. 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 Has c/o of some mild fatigue after taking, resolves, no N,V, D, he is having blood and mucus from the rectum, odor is similar to previous when he was chemo, no missed doses, no other c/o on a 10 point ROS, wants to review scan results. 08/12/19-Pt here today, he tried 4 stivarga tabs x 4 days, he had oral irritation, moderate, PPE, moderate, skin cracked on his feet, knuckles turned red, painful, joint swelling, he reduced the dose to 3 tabs and the symptoms are improving. Has a new lump on the right side of his tail bone, there is pain at the tailbone, feels bruised. He does have increase pink mucus coming from the rectum, bleeding has slowed down. He has a rash/raw in the bilateral groin, not sure if it is like a fungal infection. His urine is cloudy in the collection device, he is seeing Urologist today. Needs dilaudid refill, pain is managed. 08/26/19-Acute visit. He went to the ER Sat, he states it felt like something "burst" in the area. CT scan, pt reports, looked like a possible abscess but, there was no pocket to be drained. He was given a Rx for augmentin which he started Thursday 08/24. The site remains stable, no new sensations, no additional rectal drainage, warm bath makes the pain worse, does get relief when he shifts wt off the site. Last Thur he started cycle 2 Stivarga, 3 pills is what is tolerated (oral and skin toxicities) so, he is maintaining at that dose, he is noting increased freq of ostomy emptying, no change in color or odor. He has GRANT frequently, HTN is very notable.afebrile. He continue on completing antibiotics although his symptoms worsened. He presented for a CENTER MANAGER visit on 09/02 and CENTER MANAGER contacted Dr. Bennett regarding further recommendations. Pt states BP tendsto run higher in the AM and PM. Lisinopril dose has been rece ntly adjusted. Pt using dilaudid max dose and frequency right now due to pain from the glueal mass. Refill was provided on 09/02. After discussion with ID. recommendations were to admit to hospital, ID and Surgical consult, yanira douglass. He was therefore admitted to Dr. Ulises perez. The CT pelvis was completed on admission and the concern is the abscess and fistula is progressive cancer. Review of Systems A 14 point review of systems assessed and completed and all negative except HPI Past Medical History Past Medical History: Cancer Additional Past Medical History / Comment(s): colorectal - stage IV diagnosed 08/06/18 History of Any Multi-Drug Resistant Organisms: None Reported Past Surgical History: Orthopedic Surgery Additional Past Surgical History / Comment(s): right foot surgery, left hand surgery, mediport Past Anesthesia/Blood Transfusion Reactions: No Reported Reaction Past Psychological History: No Psychological Hx Reported Smoking Status: Never smoker Past Alcohol Use History: None Reported Past Drug Use History: None Reported - Past Family History Mother Family Medical History: Cancer Additional Family Medical History / Comment(s): skin ca Father Family Medical History: Hypertension Medications and Allergies Home Medications Medication Instructions Recorded Confirmed Type HYDROmorphone [Dilaudid] 4 - 8 mg PO Q4-6H PRN 09/02/19 09/02/19 History Ibuprofen [Advil] 400 mg PO Q8HR PRN 09/02/19 09/02/19 History Lisinopril [Zestril] 10 mg PO DAILY 09/02/19 09/02/19 History Regorafenib [Stivarga] 120 mg PO DIRECTED 09/02/19 09/02/19 History Sulfamethox-Tmp 800-160Mg [Bactrim 1 tab PO Q12HR 09/02/19 09/02/19 History DS 800-160 mg] Allergies Allergy/AdvReac Type Severity Reaction Status Date / Time codeine AdvReac Nausea & Verified 09/04/19 16:05 Vomiting Physical Exam Vitals: Vital Signs Temp Pulse Resp BP Pulse Ox 09/04/19 05:31 97.5 F L 89 16 139/74 98 09/03/19 21:30 97.8 F 77 16 157/94 100 09/03/19 17:41 75 16 09/03/19 17:00 97.9 F 69 16 134/69 98 09/03/19 15:33 97.7 F 75 16 130/76 97 Intake and Output 09/03/19 09/04/19 09/04/19 22:59 06:59 14:59 Intake Total 760 1540 Balance 760 1540 Intake: Intake, IV Titration 400 950 Amount Ampicillin-Sulbactam 3 gm 100 100 In Sodium Chloride 0.9% 100 ml @ 200 mls/hr IVPB Q6HR [facility] Rx#:[id number] Sodium Chloride 0.9% 1, 300 600 000 ml @ 75 mls/hr IV . [id number] [facility] Rx#:[id number] Vancomycin 1,250 mg In 250 Sodium Chloride 0.9% 250 ml @ 125 mls/hr IVPB Q12H [facility] Rx#:[id number] Oral 360 590 Other: Voiding Method Indwelling Catheter Indwelling Catheter # Voids 2 Weight 66.678 kg Alert and oriented, NAD Head: NCNT Neck Supple HR: Tachy Lung CTA Abd: Ostomy with output Open abscess Ext: No edema Results CBC & Chem 7: 09/04/19 06:13 09/04/19 12:40 Labs: Abnormal Lab Results - Last 24 Hours (Table) 09/04/19 09/04/19 Range/Units 06:13 06:13 WBC 11.0 H (3.8-10.6) k/uL RBC 4.20 L (4.30-5.90) m/uL Hgb 10.7 L (13.0-17.5) gm/dL Hct 33.7 L (39.0-53.0) % Plt Count 514 H (150-450) k/uL Neutrophils # 8.7 H (1.3-7.7) k/uL Potassium 5.2 H (3.5-5.1) mmol/L Glucose 109 H (74-99) mg/dL Microbiology - Last 24 Hours (Table) 09/03/19 11:00 Gram Stain - Preliminary Buttock Wound Culture - Preliminary 09/02/19 18:37 Blood Culture - Preliminary Blood No Growth after 24 hours 09/03/19 11:00 Anaerobic Culture - Preliminary Buttock CT scan - pelvis: report reviewed Assessment and Plan Plan: Assessment and Recommendations: 1. Colorectal Cancer: Stage IV - Received first and second line therapies and now receiving Stivarga - Concern for progressive cancer evidenced with non-healing peristent Abscess - CEA increased on stivarga - Discussed with Primary oncologist Dr. Conklin and plan for treatment with Xeloda versus Lonsurf with radiation 2. Rectal Fistula and abscess: - Difficult to determine infectious versus carcinoma - Delayed wound healing can be secondary to treatment with his prior anti-a ngiogenesis as well as current, although if this is progressive cancer treatment benefit may outweigh risks if response is noted - Surgery is following. Unknown if I and D will be effective if malignant - ID is following, continue IV antibiotics - Culture Pending. Physician Attest: I have completed the full history and physical and developed the complete impression and plan. I agree with above dictation, dictated as a scribe.
[2019-09-04 13:07] LABS: ALT 28 U/L (4-49); AST 60 U/L (17-59); African American GFR (CKD) >90 (>60 ml/min/1.73 sqM); Albumin 3.4 g/dL (3.5-5.0); Alkaline Phosphatase 205 U/L (38-126); Anion Gap 5 mmol/L; Blood Urea Nitrogen 14 mg/dL (9-20); Calcium 8.8 mg/dL (8.4-10.2); Carbon Dioxide 29 mmol/L (22-30); Chloride 102 mmol/L (98-107); Glucose 117 mg/dL (74-99); Magnesium 2.1 mg/dL (1.6-2.3); Non-African American GFR(CKD) >90 (>60 ml/min/1.73 sqM); Partial Thromboplastin Time 24.4 sec (22.0-30.0); Potassium 4.8 mmol/L (3.5-5.1); Prothrombin Time 10.2 sec (9.0-12.0); Sodium 136 mmol/L (137-145); Total Bilirubin 0.9 mg/dL (0.2-1.3); Total Protein 6.7 g/dL (6.3-8.2)
[2019-09-04] MEDS ORDERED: VANCOMYCIN TROUGH DUE 1 EACH MISC MISCELLANE ONE (15:00)
[2019-09-04] MEDS ORDERED: IV FLUID CONTINUATION 1,000 ML IV ONE (15:57)
[2019-09-04] MEDS ORDERED: ONDANSETRON 4 MG/2 ML VIAL IVP ONE (16:08)
[2019-09-04] MEDS ORDERED: DEXAMETHASONE SOD PHOSPHATE 10 MG/ML 1 ML VIAL IV ONE (16:09)
--- NOTE | 2019-09-04 17:33 | P.PN ---
Subjective Progress Note Date: 09/04/19 This is a 39-year-old gentleman with history of stage IV rectal CA, currently on oral chemotherapy, stirvarga, directly admitted for a large right gluteal fold abscess/cellulitis failed outpatient treatment. Evaluated last week at [facility], discharged on antibiotics.Followed up with Dr. Samson, Dermatology on , attempted an I&D with no drainage obtained, placed on Bactrim. Yesterday abscess erupted with significant drainage. Afebrile, T-max 99. WBC 12 on admission up to 14.2 currently. BUN 16, creatinine 1.0. Potassium up to 5.4. Denies chest pain, palpitations or shortness of breath. Denies lightheadedness, dizziness or focal deficits. Unasyn and vancomycin initiated. 09/04/[address] of pelvis completed, reporting enlarging rectal mass with extension into the right-sided pelvic sidewall and presacral extension with subcutaneous buttock attenuation with internal foci of care possible fistulous from above the mass versus formation of decubitus ulcers. No drainable collection identified., Right-sided hydronephrosis secondary to mass infiltration of the distal right ureter. Maintained on gentle IV fluid hydration with renal function improving, creatinine down to 0.89. Potassium improved, down to 4.8. Scheduled for I&D. Afebrile, WBC trending down to 11. INR 1.VSS. Objective - Vital Signs Vital signs: Vital Signs Temp 97.5 F L 09/04/19 05:31 Pulse 89 09/04/19 05:31 Resp 16 09/04/19 05:31 BP 139/74 09/04/19 05:31 Pulse Ox 98 09/04/19 05:31 Intake & Output 09/03/19 09/04/19 09/04/19 18:59 06:59 18:59 Intake Total 500 2300 Balance 500 2300 Intake: Intake, IV Titration 100 1350 Amount Ampicillin-Sulbactam 3 gm 100 200 In Sodium Chloride 0.9% 100 ml @ 200 mls/hr IVPB Q6HR [facility] Rx#:[id number] Sodium Chloride 0.9% 1, 900 000 ml @ 75 mls/hr IV . [id number] [facility] Rx#:[id number] Vancomycin 1,250 mg In 250 Sodium Chloride 0.9% 250 ml @ 125 mls/hr IVPB Q12H [facility] Rx#:[id number] Oral 400 950 Other: Voiding Method Indwelling Catheter Indwelling Catheter # Voids 1 2 # Bowel Movements 2 - Exam PHYSICAL EXAM: VITAL SIGNS: As above GENERAL: Sitting up in bed, no acute distress HEENT: Conjunctivae normal. eyes normal. Oral mucosa less tender NECK: No JVD. No thyroid enlargement. No LNs CARDIOVASCULAR: S1, S2 regular.. No murmur RESPIRATION: Breath sounds diminished in the bases. No rhonchi or crackles. No bronchial breathing. ABDOMEN: Soft, nontender . No guarding. no masses palpable. Suprapubic catheter , mid abdominal ostomy with appliance, vent fistula with appliance, Bowel sounds heard. LEGS: No edema. no swelling. Skin: Right Gluteal fold dressing clean dry and intact PSYCHIATRY: Alert and oriented X3, mood and affect normal. NERVOUS SYSTEM: Cranial N 2-12 grossly normal. Moves all 4 limbs. Diffuse weakness No focal deficits. Strength and sensation grossly intact.. - Labs CBC & Chem 7: 09/04/19 06:13 09/04/19 12:40 Labs: Abnormal Lab Results - Last 24 Hours (Table) 09/03/19 09/03/19 09/04/19 Range/Units 08:24 08:24 06:13 WBC 14.2 H 11.0 H (3.8-10.6) k/uL RBC 4.20 L (4.30-5.90) m/uL Hgb 12.8 L 10.7 L (13.0-17.5) gm/dL Hct 33.7 L (39.0-53.0) % Plt Count 583 H 514 H (150-450) k/uL Neutrophils # 11.5 H 8.7 H (1.3-7.7) k/uL Monocytes # 1.1 H (0-1.0) k/uL Sodium 134 L (137-145) mmol/L Potassium 5.4 H (3.5-5.1) mmol/L Glucose 107 H (74-99) mg/dL 09/04/19 Range/Units 06:13 WBC (3.8-10.6) k/uL RBC (4.30-5.90) m/uL Hgb (13.0-17.5) gm/dL Hct (39.0-53.0) % Plt Count (150-450) k/uL Neutrophils # (1.3-7.7) k/uL Monocytes # (0-1.0) k/uL Sodium (137-145) mmol/L Potassium 5.2 H (3.5-5.1) mmol/L Glucose 109 H (74-99) mg/dL Microbiology - Last 24 Hours (Table) 09/03/19 11:00 Gram Stain - Preliminary Buttock Wound Culture - Preliminary 09/02/19 18:37 Blood Culture - Preliminary Blood No Growth after 24 hours 09/03/19 11:00 Anaerobic Culture - Preliminary Buttock Assessment and Plan Assessment: Right gluteal fold abscess, I&D pending Enlarging rectal mass with extension into the right-sided pelvic sidewall and presacral extension, subcutaneous buttock attenuation with internal foci of air possible fistulous communication from the mass, possible formation of decubitus ulcers with no drainable collection identified per CT, possible infection, possible progressive cancer. Stage IV rectal CA Acute renal failure Hyperkalemia Right-sided hydronephrosis secondary to mass infiltration of the right distal ureter Plan: Continue on current medication regime, monitoring and symptomatic treatment. Maintain gentle IV fluid hydration. I&D Pending. Pain management. Antibiotics as per infectious disease. Cultures pending.Close monitoring of renal function, electrolytes with repeat labs ordered for a.m. prognosis guarded given multiple complex medical issues. The impression and plan of care has been dictated as directed. : I performed a history and examination of this patient, discussed the same with the dictator. I agree with the dictator's note ,documented as a scribe. Any additional findings or plans will be noted.
[2019-09-04] MEDS ORDERED: HEPARIN SODIUM,PORCINE 5,000 UNIT/ML 1 ML VIAL SQ ONE (17:45)
[2019-09-04] MEDS ORDERED: PROPOFOL 10 MG/ML 20 ML VIAL IV ONE (17:48)
[2019-09-04] MEDS ORDERED: fentaNYL (PF) 50 MCG/ML 2 ML AMP ONE (17:48)
[2019-09-04] MEDS ORDERED: GLYCOPYRROLATE 0.2 MG/ML 2 ML VIAL ONE (17:48)
[2019-09-04] MEDS ORDERED: MIDAZOLAM 2 MG/2 ML VIAL ONE (17:48)
[2019-09-04] MEDS ORDERED: KETAMINE 10 MG/ML 20 ML VIAL ONE (17:48)
[2019-09-04] MEDS ORDERED: BUPIVACAIN-EPI 0.25%-1:200,000 30 ML VIAL SQ ONE ×2 (18:05)
[2019-09-04] MEDS ORDERED: KETOROLAC 30 MG/ML 1 ML VIAL IVP ONE (18:43)
--- NOTE | 2019-09-04 18:52 | P.OP ---
Date of Procedure: 09/04/19 Procedure(s) Performed: PREOPERATIVE DIAGNOSIS: Right buttock abscess POSTOPERATIVE DIAGNOSIS: Same PROCEDURE: Incision and drainage right buttock abscess SURGEON: Huey EBL: 10 mL ANESTHESIA: Patient plus local COMPLICATIONS: None OPERATIVE PROCEDURE: Patient was placed in the left decubitus position. The buttocks were prepped and draped sterilely. An elliptical incision was made around the draining abscess site. Cultures were taken from the deep tissues. Blunt dissection took place breaking up the loculations in the subcutaneous tissues of the right buttock. The abscess cavity was noted to track inferiorly. The skin was very thin at that location. A counterincision was made using an additional elliptical shaped incision approximately 4-5 cm inferior to the initial incision site. The abscess was noted to track inferiorly and anteriorly. The wound was irrigated with saline. A [place] drain was then placed through the incision sites suturing back to itself externally using 2-0 silk sutures. Both wounds were packed using a single piece of half-inch iodoform gauze. Sterile outer dressings applied. DISPOSITION: Stable to recovery room
[2019-09-04] MEDS ORDERED: HYDROmorphone 1 MG/ML 1 ML SYRINGE IVP ONE ×2 (19:01→19:04)
[2019-09-04] MEDS: SODIUM CHLORIDE 0.9% 1,000 ML IV SCH (19:31)
--- NOTE | 2019-09-04 23:54 | P.PN ---
Progress Note - Text Progress Note Date: 09/04/19 REASON FOR FOLLOWUP: Left leg abscess and cellulitis. INTERVAL HISTORY: The patient remains to be afebrile.The patient still complaining of pain to the right gluteal area and did has some drainage. The patient denies having any chest pain or shortness of breath or cough.No abdominal pain or diarrhea, currently waiting for surgical drainage PHYSICAL EXAMINATION: Blood pressure 120/76, pulse of 75, temperature 97.7. He is 95% on room air. General description is a middle-aged male lying in bed in no distress. RESPIRATORY SYSTEM: Unlabored breathing. Clear to auscultation anteriorly. HEART: S1, S2. Regular rate and rhythm. ABDOMEN: Soft. No tenderness. LABS: Reviewed DIAGNOSTIC IMPRESSION AND PLAN: Patient with right gluteal abscess, awaiting surgical incision and drainage and deep cultures. We will keep the patient on Unasyn and vancomycin and adjust antibiotics further based on culture report. Continue with supportive care.
[2019-09-05] MEDS: SODIUM CHLORIDE 0.9% 1,000 ML IV SCH (02:30)
[2019-09-05] MEDS: VANCOMYCIN 1,250 MG in SODIUM CHLORIDE 0.9% 250 ML IVPB SCH (03:45)
[2019-09-05] MEDS: AMPICILLIN-SULBACTAM 3 GM in SODIUM CHLORIDE 0.9% 100 ML IVPB SCH ×2 (05:55→12:02)
[2019-09-05] MEDS: KETOROLAC 30 MG/ML 1 ML VIAL IVP PRN ×2 (05:56→15:23)
[2019-09-05 07:05] LABS: Basophils % (A) 0 %; Eosinophils % (A) 0 %; HCT 35.1 % (39.0-53.0); HGB 11.3 gm/dL (13.0-17.5); Hypochromasia Moderate; Lymphocytes # (A) 0.8 k/uL (1.0-4.8); Lymphocytes % (A) 8 %; MCH 25.8 pg (25.0-35.0); MCHC 32.3 g/dL (31.0-37.0); Mean Platelet Volume 7.4; Monocytes # (A) 0.6 k/uL (0-1.0); Monocytes % (A) 6 %; Neutrophils % (A) 86 %; Platelet Count 557 k/uL (150-450); Poikilocytosis Slight; RBC 4.39 m/uL (4.30-5.90); RDW 13.7 % (11.5-15.5); WBC 10.5 k/uL (3.8-10.6)
[2019-09-05 07:14] LABS: ALT 32 U/L (4-49); AST 59 U/L (17-59); African American GFR (CKD) >90 (>60 ml/min/1.73 sqM); Albumin 3.4 g/dL (3.5-5.0); Alkaline Phosphatase 248 U/L (38-126); Anion Gap 9 mmol/L; Blood Urea Nitrogen 15 mg/dL (9-20); Calcium 8.9 mg/dL (8.4-10.2); Carbon Dioxide 23 mmol/L (22-30); Chloride 106 mmol/L (98-107); Glucose 117 mg/dL (74-99); Magnesium 2.4 mg/dL (1.6-2.3); Non-African American GFR(CKD) >90 (>60 ml/min/1.73 sqM); Potassium 5.1 mmol/L (3.5-5.1); Sodium 138 mmol/L (137-145); Total Bilirubin 0.4 mg/dL (0.2-1.3); Total Protein 7.1 g/dL (6.3-8.2)
[2019-09-05] MEDS: PANTOPRAZOLE 40 MG TABLET PO SCH (07:39)
[2019-09-05] MEDS: LISINOPRIL 10 MG TAB PO SCH (07:39)
[2019-09-05] MEDS: HYDROmorphone 2 MG TAB PO PRN (07:39)
[2019-09-05] MEDS: NICOTINE 14MG/24HR PATCH TRANSDERM SCH (07:39)
--- NOTE | 2019-09-05 09:37 | P.PN ---
<ChauAyde Marlyn - Last Filed: 09/05/19 09:35> Subjective Progress Note Date: 09/05/19 CHIEF COMPLAINT: Buttock abscess HISTORY OF PRESENT ILLNESS: 39-year-old male who is status post incision and drainage of right buttock abscess. Postop day #1. Patient examined at the bedside. Patient reports his pain is tolerable at this time. Vital signs are stable. Patient is afebrile. Patient is anxious to be discharged home. PHYSICAL EXAM: VITAL SIGNS: Reviewed. GENERAL: Well-developed in no acute distress. HEENT: No sclera icterus. Extraocular movements grossly intact. Moist buccal mucosa. Head is atraumatic, normocephalic. ABDOMEN: Soft. Nondistended. Nontender. Ostomy with stool noted. NEUROLOGIC: Alert and oriented. Cranial nerves II through XII grossly intact. SKIN: Right buttock with samreen drain noted. Serosanguineous drainage ASSESSMENT: 1. Buttock abscess 2. Stage 4 rectal cancer PLAN: -Continue antibiotics. Await cultures. Infectious disease following -Pain control -Patient may be discharged home today from a surgical standpoint. Iodoform gauze may be removed today. No further packing needed per Dr. Arzate. Samreen drain to remain intact at discharge. Nurse practitioner note has been reviewed by physician. Signing provider agrees with the documented findings, assessment, and plan of care. Objective - Vital Signs Vital signs: Vital Signs Temp 98.1 F 09/05/19 05:40 Pulse 90 09/05/19 05:40 Resp 16 09/05/19 05:40 BP 139/78 09/05/19 05:40 Pulse Ox 95 09/05/19 05:40 Intake & Output 09/04/19 09/05/19 09/05/19 18:59 06:59 18:59 Intake Total 900 825 Output Total 160 Balance 740 825 Weight 66.678 kg Intake: IV 200 Intake, IV Titration 700 825 Amount Ampicillin-Sulbactam 3 gm 100 In Sodium Chloride 0.9% 100 ml @ 200 mls/hr IVPB Q6HR [facility] Rx#:[id number] Sodium Chloride 0.9% 1, 600 825 000 ml @ 75 mls/hr IV . [id number] [facility] Rx#:[id number] Output: Urine 150 Estimated Blood Loss 10 Other: Voiding Method Indwelling Catheter Indwelling Catheter Indwelling Catheter - Labs CBC & Chem 7: 09/05/19 05:56 09/05/19 05:56 Labs: Abnormal Lab Results - Last 24 Hours (Table) 09/04/19 09/04/19 09/05/19 Range/Units 12:40 12:40 05:56 Hgb 11.3 L (13.0-17.5) gm/dL Hct 35.1 L (39.0-53.0) % Plt Count 557 H (150-450) k/uL Neutrophils # 9.0 H (1.3-7.7) k/uL Lymphocytes # 0.8 L (1.0-4.8) k/uL Sodium 136 L (137-145) mmol/L Glucose 117 H (74-99) mg/dL Magnesium (1.6-2.3) mg/dL AST 60 H (17-59) U/L Alkaline Phosphatase 205 H (38-126) U/L Albumin 3.4 L (3.5-5.0) g/dL Carcinoembryonic Ag 1451.1 H (0.0-4.9) ng/mL 09/05/19 Range/Units 05:56 Hgb (13.0-17.5) gm/dL Hct (39.0-53.0) % Plt Count (150-450) k/uL Neutrophils # (1.3-7.7) k/uL Lymphocytes # (1.0-4.8) k/uL Sodium (137-145) mmol/L Glucose 117 H (74-99) mg/dL Magnesium 2.4 H (1.6-2.3) mg/dL AST (17-59) U/L Alkaline Phosphatase 248 H (38-126) U/L Albumin 3.4 L (3.5-5.0) g/dL Carcinoembryonic Ag (0.0-4.9) ng/mL Microbiology - Last 24 Hours (Table) 09/04/19 18:05 Gram Stain - Preliminary Buttock Wound Culture - Preliminary 09/04/19 18:05 Anaerobic Culture - Preliminary Buttock 09/02/19 18:37 Blood Culture - Preliminary Blood No Growth after 48 hours 09/03/19 11:00 Gram Stain - Preliminary Buttock Wound Culture - Preliminary <Lee Arzate - Last Filed: 09/05/19 12:55> Subjective Patient doing better today. Pain is less. Still with some drainage. Awaiting cultures. Possible discharge later today. Objective - Vital Signs Vital signs: Vital Signs Temp 98.1 F 09/05/19 05:40 Pulse 90 09/05/19 05:40 Resp 16 09/05/19 05:40 BP 139/78 09/05/19 05:40 Pulse Ox 95 09/05/19 05:40 Intake & Output 09/04/19 09/05/19 09/05/19 18:59 06:59 18:59 Intake Total 900 825 Output Total 160 Balance 740 825 Weight 66.678 kg 66.678 kg Intake: IV 200 Intake, IV Titration 700 825 Amount Ampicillin-Sulbactam 3 gm 100 In Sodium Chloride 0.9% 100 ml @ 200 mls/hr IVPB Q6HR [facility] Rx#:[id number] Sodium Chloride 0.9% 1, 600 825 000 ml @ 75 mls/hr IV . [id number] [facility] Rx#:[id number] Output: Urine 150 Estimated Blood Loss 10 Other: Voiding Method Indwelling Catheter Indwelling Catheter Indwelling Catheter - Labs CBC & Chem 7: 09/05/19 05:56 09/05/19 05:56 Labs: Abnormal Lab Results - Last 24 Hours (Table) 09/04/19 09/04/19 09/05/19 Range/Units 12:40 12:40 05:56 Hgb 11.3 L (13.0-17.5) gm/dL Hct 35.1 L (39.0-53.0) % Plt Count 557 H (150-450) k/uL Neutrophils # 9.0 H (1.3-7.7) k/uL Lymphocytes # 0.8 L (1.0-4.8) k/uL Sodium 136 L (137-145) mmol/L Glucose 117 H (74-99) mg/dL Magnesium (1.6-2.3) mg/dL AST 60 H (17-59) U/L Alkaline Phosphatase 205 H (38-126) U/L Albumin 3.4 L (3.5-5.0) g/dL Carcinoembryonic Ag 1451.1 H (0.0-4.9) ng/mL 09/05/19 Range/Units 05:56 Hgb (13.0-17.5) gm/dL Hct (39.0-53.0) % Plt Count (150-450) k/uL Neutrophils # (1.3-7.7) k/uL Lymphocytes # (1.0-4.8) k/uL Sodium (137-145) mmol/L Glucose 117 H (74-99) mg/dL Magnesium 2.4 H (1.6-2.3) mg/dL AST (17-59) U/L Alkaline Phosphatase 248 H (38-126) U/L Albumin 3.4 L (3.5-5.0) g/dL Carcinoembryonic Ag (0.0-4.9) ng/mL Microbiology - Last 24 Hours (Table) 09/03/19 11:00 Gram Stain - Final Buttock Wound Culture - Final 09/04/19 18:05 Gram Stain - Preliminary Buttock Wound Culture - Preliminary 09/04/19 18:05 Anaerobic Culture - Preliminary Buttock 09/02/19 18:37 Blood Culture - Preliminary Blood No Growth after 48 hours
[2019-09-05] MEDS: MAG HYDROX/AL HYDROX/SIMETH 30 ML, LIDOCAINE VISCOUS 30 ML, diphenhydrAMINE ELIXIR 75 M... PO SCH ×8 (09:44→15:26)
[2019-09-05] MEDS ORDERED: HYDROmorphone 1 MG/ML 1 ML SYRINGE IM PRN (10:54)
--- NOTE | 2019-09-05 12:12 | CONS ---
CONSULTATION REASON FOR CONSULTATION: Recurrent colorectal carcinoma. DATE OF SERVICE: 09/05/2019. ICD 10 code is C20. HISTORY OF PRESENT ILLNESS: Chaitanya Ayala is a 39-year-old male who was diagnosed with stage IV colorectal cancer. The patient was previously treated with FOLFOX. He was previously treated with FOLFIRI. The patient recently underwent additional systemic therapy. The patient was having symptoms related to right-sided pelvic pain and discomfort. Additional testing was performed. The patient required debridement of a perirectal abscess, which was performed by Dr. Lee Arzate. The patient had a CT scan on 08/06/2018, which did reveal metastatic disease. Recent debridement performed by Dr. Arzate, tissue was submitted for pathology, but is pending. At present, the patient complains of right-sided pelvic pain. He complains of pelvic pressure. He does have a functioning colostomy. He generally reports that his bladder function has been stable. The patient was seen by infectious disease. He was started on vancomycin. PAST MEDICAL HISTORY: 1. Hypertension. 2. Intermittent headaches. 3. Colorectal cancer as per HPI. 4. Chronic pain. PAST SURGICAL HISTORY: 1. Right foot surgery. 2. Left hand surgery. 3. MediPort. 4. Diverting colostomy. SOCIAL HISTORY: The patient has been up to work lately. He denies significant history of tobacco or alcohol abuse. He lives in his own home. He is and has 2 children. FAMILY HISTORY: Contributory for his mother with a history of cancer. There is a family history for skin cancer. There is a family history for hypertension. OUTPATIENT MEDICATIONS: Hydromorphone, ibuprofen, lisinopril, Stivarga, Bactrim. ALLERGIES: Codeine. REVIEW OF SYSTEMS: Noted as per the review of systems in the hospital chart. This is contributory for pelvic pain, skin lesion requiring debridement for possible pilonidal cyst versus bedsore versus cancer. PHYSICAL EXAMINATION: Mr. Ayala is a relatively healthy appearing, well-developed, well-nourished male, resting in a hospital bed. He has a BP of approximately 139/74. He is afebrile. Temperature is 97.5, pulse is approximately 80. HEAD: Atraumatic, normocephalic. EYES: PERRLA, EOMI. Oral cavity reveals no visible lesions. NECK: Without any palpable cervical lymphadenopathy. LUNGS: Clear to auscultation and percussion. HEART: Normal heart sounds. ABDOMEN: Benign. He has a functioning colostomy. He has no hepatosplenomegaly. Examination of the pelvic area reveals postsurgical changes with a small drainage tube noted through the recently debrided wound within the right sacral skin. There is no evidence of drainage. There is slight amount of fluctuance and a firmness within and underlying this drainage site. EXTREMITY: Examination reveals full range of motion with no cyanosis, clubbing, or edema detected. NEUROLOGIC: Examination reveals cranial nerves 2-12 intact. Strength and sensation intact, diffusely to plantar reflexes downgoing. SKIN: Examination reveals no lesions. PSYCH: Evaluation reveals no mood disorders. IMPRESSION: Chaitanya Ayala is a 39-year-old male diagnosed with stage IV colorectal carcinoma. The patient has been treated with multiple courses of systemic therapy. He has had elevation of his CEA, now on Stivarga. The patient otherwise has additional ongoing medical problems include: 1. Perirectal abscess versus fistula. 2. Hypertension. 3. Intermittent headaches. Pain scale evaluation approximately 6/10. Pain control is Dilaudid. PLAN: The patient's case was discussed with Janine Toribio from Medical Oncology. The patient will be started on fentanyl patch. I felt that the patient may potentially benefit from additional imaging as an outpatient. Potentially, radiation therapy to the pelvic mass concurrently with chemotherapy including Xeloda versus targeted drug therapy such as Lonsurf. I felt that repeat staging with a PET scan may allow us to utilize this imaging to conform radiation treatment to the pelvic mass and/or superficially skin involvement. The patient is willing to move forward with planned imaging. We will coordinate a schedule for the patient to follow up in Radiation Oncology sometime in the next 1-2 weeks where we can review the results of the above as well as the pathology from the recent surgery performed by Dr. Arzate. Thank you again for entrusting the care of Chaitanya Ayala. MMODL / IJN: [id number] /
[2019-09-05 13:21] VITALS: BP 148/88; PULSE 86; RESP 18; TEMP 98
--- NOTE | 2019-09-05 14:01 | P.PN ---
Subjective Progress Note Date: 09/05/19 This is a 39-year-old gentleman with history of stage IV rectal CA, currently on oral chemotherapy, stirvarga, directly admitted for a large right gluteal fold abscess/cellulitis failed outpatient treatment. Evaluated last week at [facility], discharged on antibiotics.Followed up with Dr. Samson, Dermatology on , attempted an I&D with no drainage obtained, placed on Bactrim. Yesterday abscess erupted with significant drainage. Afebrile, T-max 99. WBC 12 on admission up to 14.2 currently. BUN 16, creatinine 1.0. Potassium up to 5.4. Denies chest pain, palpitations or shortness of breath. Denies lightheadedness, dizziness or focal deficits. Unasyn and vancomycin initiated. 09/04/[address] of pelvis completed, reporting enlarging rectal mass with extension into the right-sided pelvic sidewall and presacral extension with subcutaneous buttock attenuation with internal foci of care possible fistulous from above the mass versus formation of decubitus ulcers. No drainable collection identified., Right-sided hydronephrosis secondary to mass infiltration of the distal right ureter. Maintained on gentle IV fluid hydration with renal function improving, creatinine down to 0.89. Potassium improved, down to 4.8. Scheduled for I&D. Afebrile, WBC trending down to 11. INR 1.VSS. 09/05/2019 postop day #1 I&D of right buttock abscess, tolerated procedure well. Cultures/pathology pending. Antibiotics as per infectious disease. Complains of periodic rectal pain, states incisional site pain controlled. Denies chest pain, palpitations or shortness of breath. Denies lightheadedness, dizziness or focal deficits. Denies no nausea or vomiting. Afebrile, normal WBC. Hemoglobin up to 11.3. Creatinine 0.76. CEA 1451.1. Evaluated by radiology oncology, discussing potential radiation therapy in addition to chemotherapy and further OP imaging/repeat staging. Objective - Vital Signs Vital signs: Vital Signs Temp 98 F 09/05/19 13:19 Pulse 86 09/05/19 13:19 Resp 18 09/05/19 13:19 BP 148/88 09/05/19 13:19 Pulse Ox 96 04/23/20 13:19 Intake & Output 09/04/19 09/05/19 09/05/19 18:59 06:59 18:59 Intake Total 900 825 Output Total 160 Balance 740 825 Weight 66.678 kg 66.678 kg Intake: IV 200 Intake, IV Titration 700 825 Amount Ampicillin-Sulbactam 3 gm 100 In Sodium Chloride 0.9% 100 ml @ 200 mls/hr IVPB Q6HR [facility] Rx#:[id number] Sodium Chloride 0.9% 1, 600 825 000 ml @ 75 mls/hr IV . [id number] [facility] Rx#:[id number] Output: Urine 150 Estimated Blood Loss 10 Other: Voiding Method Indwelling Catheter Indwelling Catheter Indwelling Catheter - Exam PHYSICAL EXAM: VITAL SIGNS: As above GENERAL: Sitting up in bed, no acute distress HEENT: Conjunctivae normal. eyes normal. Oral mucosa moist NECK: No JVD. No thyroid enlargement. No LNs CARDIOVASCULAR: S1, S2 regular.. No murmur RESPIRATION: Breath sounds diminished in the bases. No rhonchi or crackles. No bronchial breathing. ABDOMEN: Soft, nontender . No guarding. no masses palpable. Suprapubic catheter , mid abdominal ostomy with appliance, vent fistula with appliance, positive bowel sounds. LEGS: No edema. no swelling. Skin: Right buttock/Gluteal fold dressing clean dry and intact. PSYCHIATRY: Alert and oriented X3, mood and affect normal. NERVOUS SYSTEM: Cranial N 2-12 grossly normal. Moves all 4 limbs. No focal deficits. Strength and sensation grossly intact.. Microbiology 09/03/19 11:00 Buttock Gram Stain - Final 09/03/19 11:00 Buttock Wound Culture - Final 09/04/19 18:05 Buttock Gram Stain - Preliminary 09/04/19 18:05 Buttock Wound Culture - Preliminary 09/04/19 18:05 Buttock Anaerobic Culture - Preliminary 09/02/19 18:37 Blood Blood Culture - Preliminary No Growth after 48 hours 09/03/19 11:00 Buttock Anaerobic Culture - Preliminary - Labs CBC & Chem 7: 09/05/19 05:56 09/05/19 05:56 Labs: Abnormal Lab Results - Last 24 Hours (Table) 09/04/19 09/05/19 09/05/19 Range/Units 12:40 05:56 05:56 Hgb 11.3 L (13.0-17.5) gm/dL Hct 35.1 L (39.0-53.0) % Plt Count 557 H (150-450) k/uL Neutrophils # 9.0 H (1.3-7.7) k/uL Lymphocytes # 0.8 L (1.0-4.8) k/uL Glucose 117 H (74-99) mg/dL Magnesium 2.4 H (1.6-2.3) mg/dL Alkaline Phosphatase 248 H (38-126) U/L Albumin 3.4 L (3.5-5.0) g/dL Carcinoembryonic Ag 1451.1 H (0.0-4.9) ng/mL Microbiology - Last 24 Hours (Table) 09/03/19 11:00 Gram Stain - Final Buttock Wound Culture - Final 09/04/19 18:05 Gram Stain - Preliminary Buttock Wound Culture - Preliminary 09/04/19 18:05 Anaerobic Culture - Preliminary Buttock 09/02/19 18:37 Blood Culture - Preliminary Blood No Growth after 48 hours Assessment and Plan Assessment: Right gluteal fold abscess, I&D pending Enlarging rectal mass with extension into the right-sided pelvic sidewall and p resacral extension, subcutaneous buttock attenuation with internal foci of air possible fistulous communication from the mass, possible formation of decubitus ulcers with no drainable collection identified per CT, possible infection, possible progressive cancer. Stage IV rectal CA Acute renal failure Hyperkalemia Right-sided hydronephrosis secondary to mass infiltration of the right distal ureter Plan: Continue on current medication regime, monitoring and symptomatic treatment. Pain management. Final cultures pending. Antibiotics as per infectious disease. Pathology pending .Close monitoring of renal function, electrolytes with repeat labs ordered for a.m. Discharge planning in progress pending finalization of cultures/DC recommendations from infectious disease. The impression and plan of care has been dictated as directed. : I performed a history and examination of this patient, discussed the same with the dictator. I agree with the dictator's note ,documented as a scribe. Any additional findings or plans will be noted.
[2019-09-05] MEDS ORDERED: ERTAPENEM 1 GM in SODIUM CHLORIDE 0.9% 50 ML IVPB STA (14:44)
--- NOTE | 2019-09-05 15:45 | PN ---
PROGRESS NOTE DATE OF SERVICE: 09/05/2019 REASON FOR FOLLOWUP: Left gluteal abscess. INTERVAL HISTORY: The patient is currently afebrile, has been feeling better, breathing comfortably. Overall pain to the left gluteal area is currently controlled. The patient has been insisting on going home, no chest pain or cough. PHYSICAL EXAMINATION: His blood pressure 148/82 with a pulse of 86, temperature of 98, he is 96% on room air. General description is a middle-aged male, lying in bed in no distress. RESPIRATORY SYSTEM: Unlabored breathing, clear to auscultation. ABDOMEN: Soft, no tenderness. Left gluteal area overall swelling and redness has decreased. LABS: White count normalized to 10.5 with a BUN of 15, creatinine 0.76. Wound culture has been usual skin oneyda. DIAGNOSTIC IMPRESSION AND PLAN: Patient with left gluteal abscess, status post surgical drainage. The patient is insisting on going home. We will give a dose of Invanz x1 now. Subsequently, the patient to continue with IV Unasyn 3 g q.8 hours for 2 weeks in the outpatient setting starting tomorrow. Vancomycin discontinued and was no resistant gram positive. MMODL / IJN: [id number] /
--- NOTE | 2019-09-05 16:07 | P.DS ---
Providers Date of admission: 09/02/19 17:07 Expected date of discharge: 09/05/19 Attending physician: Eric Montgomery Consults: 09/02/19 17:48 Consult Physician Routine Consulting Provider: Lee Arzate Consult Reason/Comments: buttock abscess Do you want consulting provider notified?: Yes Placement Type Exists?: Yes 09/02/19 17:49 Consult Physician Routine Consulting Provider: Remigio Bennett Consult Reason/Comments: antibx/wound care Do you want consulting provider notified?: Yes Placement Type Exists?: Yes 09/03/19 12:55 Consult Physician Routine Consulting Provider: Ramses Lentz Consult Reason/Comments: chemo, Stage IV rectal ca Do you want consulting provider notified?: Yes 09/05/19 10:41 Consult Physician Routine Consulting Provider: Beau Valdez Consult Reason/Comments: potential radiation post I and D Do you want consulting provider notified?: Already Contacted Primary care physician: Eric Montgomery [facility] Course: Final Diagnoses: Right gluteal fold abscess, I&D pending Enlarging rectal mass with extension into the right-sided pelvic sidewall and presacral extension, subcutaneous buttock attenuation with internal foci of air possible fistulous communication from the mass, possible formation of decubitus ulcers with no drainable collection identified per CT, possible infection, possible progressive cancer. Stage IV rectal CA Acute renal failure Hyperkalemia Right-sided hydronephrosis secondary to mass infiltration of the right distal ureter Hospital course:This is a 39-year-old gentleman with history of stage IV rectal CA, currently on oral chemotherapy, stirvarga, directly admitted for a large right gluteal fold abscess/cellulitis failed outpatient treatment. Evaluated last week at [facility], discharged on antibiotics.Followed up with Dr. Samson, Dermatology on , attempted an I&D with no drainage obtained, placed on Bactrim. Yesterday abscess erupted with significant drainage. Afebrile, T-max 99. WBC 12 on admission up to 14.2 currently. BUN 16, creatinine 1.0. Potassium up to 5.4. Denies chest pain, palpitations or shortness of breath. Denies lightheadedness, dizziness or focal deficits. Tonya syn and vancomycin initiated. 09/04/[address] of pelvis completed, reporting enlarging rectal mass with extension into the right-sided pelvic sidewall and presacral extension with subcutaneous buttock attenuation with internal foci of care possible fistulous from above the mass versus formation of decubitus ulcers. No drainable collection identified., Right-sided hydronephrosis secondary to mass infiltration of the distal right ureter. Maintained on gentle IV fluid hydration with renal function improving, creatinine down to 0.89. Potassium improved, down to 4.8. Scheduled for I&D. Afebrile, WBC trending down to 11. INR 1.VSS. 09/05/2019 postop day #1 I&D of right buttock abscess, tolerated procedure well. Cultures/pathology pending. Antibiotics as per infectious disease. Complains of periodic rectal pain, states incisional site pain controlled. Denies chest pain, palpitations or shortness of breath. Denies lightheadedness, dizziness or focal deficits. Denies no nausea or vomiting. Afebrile, normal WBC. Hemoglobin up to 11.3. Creatinine 0.76. CEA 1451.1. Evaluated by radiology oncology, discussing potential radiation therapy in addition to chemotherapy and further OP imaging/repeat staging. Patient will be discharged home in a stable condition with guarded prognosis pending final DC recommendations/antibiotics/clearance from both oncology and infectious disease. The impression and plan of care has been dictated as directed. : I performed a history and examination of this patient, discussed the same with the dictator. I agree with the dictator's note ,documented as a scribe. Any additional findings or plans will be noted. Patient Condition at Discharge: Stable Plan - Discharge Summary Discharge Rx Participant: No New Discharge Prescriptions: New Ampicillin-Sulbactam [Unasyn] 3 gm IVPB Q8HR #42 vial Nicotine 14Mg/24Hr Patch [Habitrol] 1 patch TRANSDERM DAILY #30 patch Pantoprazole [Protonix] 40 mg PO DAILY #30 tablet.dr Discontinued Sulfamethox-Tmp 800-160Mg [Bactrim DS 800-160 mg] 1 tab PO Q12HR No Action Ibuprofen [Advil] 400 mg PO Q8HR PRN PRN Reason: Pain Lisinopril [Zestril] 10 mg PO DAILY HYDROmorphone [Dilaudid] 4 - 8 mg PO Q4-6H PRN PRN Reason: Pain Regorafenib [Stivarga] 120 mg PO DIRECTED Discharge Medication List HYDROmorphone [Dilaudid] 4 - 8 mg PO Q4-6H PRN 09/02/19 [History] Ibuprofen [Advil] 400 mg PO Q8HR PRN 09/02/19 [History] Lisinopril [Zestril] 10 mg PO DAILY 09/02/19 [History] Regorafenib [Stivarga] 120 mg PO DIRECTED 09/02/19 [History] Ampicillin-Sulbactam [Unasyn] 3 gm IVPB Q8HR #42 vial 09/05/19 [Rx] Nicotine 14Mg/24Hr Patch [Habitrol] 1 patch TRANSDERM DAILY #30 patch 09/05/19 [Rx] Pantoprazole [Protonix] 40 mg PO DAILY #30 tablet. 09/05/19 [Rx] Follow up Appointment(s)/Referral(s): Lee Arzate MD [Medical Doctor] - 1 Week Ramses Lentz MD [STAFF PHYSICIAN] - 1 Week rEic Montgomery DO [Primary Care Provider] - 2 Weeks [facility] [NON-STAFF] - As Needed (IV antibiotics to be delivered to home this evening or in morning. They will call to arrange this. ) Remigio Bennett MD [STAFF PHYSICIAN] - 2 Weeks [facility]iting Nurse, [NON-STAFF] - As Needed Activity/Diet/Wound Care/Special Instructions: Cools Soln q 8h prn Pending DC antibiotics/clearance from infectious disease. Pending clearance from oncology. No further packing needed to wound. Continue lucas drain Use gauze to collect drainage from lucas You may shower
--- NOTE | 2019-09-05 20:52 | P.PN ---
Subjective Progress Note Date: 09/05/19 Principal diagnosis: Metastatic Colorectal Pain not controlled on PO dilaudid, fentanyl added Objective - Vital Signs Vital signs: Vital Signs Temp 98 F 09/05/19 13:19 Pulse 86 09/05/19 13:19 Resp 18 09/05/19 13:19 BP 148/88 09/05/19 13:19 Pulse Ox 96 09/05/19 13:19 Intake & Output 09/05/19 09/05/19 09/06/19 06:59 18:59 06:59 Intake Total 825 1540 Balance 825 1540 Weight 66.678 kg Intake: Intake, IV Titration 825 640 Amount Sodium Chloride 0.9% 1, 825 640 000 ml @ 75 mls/hr IV . [id number] [facility] Rx#:[id number] Oral 900 Other: Voiding Method Indwelling Catheter Indwelling Catheter # Voids 3 - Exam Alert and oriented, NAD Head: NCNT Neck Supple HR: Tachy Lung CTA Abd: Ostomy with output Open abscess Ext: No edema - Labs CBC & Chem 7: 09/05/19 05:56 09/05/19 05:56 Labs: Abnormal Lab Results - Last 24 Hours (Table) 09/05/19 09/05/19 Range/Units 05:56 05:56 Hgb 11.3 L (13.0-17.5) gm/dL Hct 35.1 L (39.0-53.0) % Plt Count 557 H (150-450) k/uL Neutrophils # 9.0 H (1.3-7.7) k/uL Lymphocytes # 0.8 L (1.0-4.8) k/uL Glucose 117 H (74-99) mg/dL Magnesium 2.4 H (1.6-2.3) mg/dL Alkaline Phosphatase 248 H (38-126) U/L Albumin 3.4 L (3.5-5.0) g/dL Microbiology - Last 24 Hours (Table) 09/04/19 18:05 Gram Stain - Preliminary Buttock Wound Culture - Preliminary 09/03/19 11:00 Gram Stain - Final Buttock Wound Culture - Final 09/04/19 18:05 Anaerobic Culture - Preliminary Buttock 09/02/19 18:37 Blood Culture - Preliminary Blood No Growth after 48 hours Assessment and Plan Plan: Assessment and Recommendations: 1. Colorectal Cancer: Stage IV - Received first and second line therapies and now receiving Stivarga - Concern for progressive cancer evidenced with non-healing peristent Abscess - CEA increased on stivarga - Discussed with Primary oncologist Dr. Conklin and plan for treatment with Xeloda versus Lonsurf with radiation 2. Rectal Fistula and abscess: - Difficult to determine infectious versus carcinoma - Delayed wound healing can be secondary to treatment with his prior anti- angiogenesis as well as current, although if this is progressive cancer treatment benefit may outweigh risks if response is noted - Surgery is following. Unknown if I and D will be effective if malignant - ID is following, continue IV antibiotics - Culture Pending. 3. Neoplastic elated pain: - Add long acting with fentanyl patch - Bowel regimen - Follow up in office monday Discussed with Radiation onc and will see them next week Stop Stivarga
--- NOTE | 2019-09-09 08:43 | CDI ---
Documentation Clarification Form Date: 09/09/19 From: Louise Dhillon Phone: If you have a question about this query, please contact Bea Chambers, Numerical Control Drill Press Operator at [phone] between 8am and 5pm. Admit Date: 09/02/19 Discharge Date:09/05/19 Patient Name: Chaitanya Ayala Visit Number: [id number] ATTENTION: The Clinical Documentation Specialists (CDI) and [facility] Coding Staff appreciate your assistance in clarifying documentation. Please respond to the clarification below the line at the bottom and electronically sign. The CDI & [facility] Coding staff will review the response and follow-up if needed. Please note: Queries are made part of the Legal Health Record. If you have any questions, please contact the author of this message via ITS. Dear Dr. Montgomery Acute renal failure was documented in the H&P, discharge summary and Lily Saavedra's 09/03 and 09/04 progress notes but is lacking clinical support. History/Risk Factors: Colorectal cancer with metastasis, hydronephrosis secondary to mass infiltration of the distal right ureter, gluteal abscess Patients baseline BUN/CR/GFR: 14/0.76/>90 Clinical Indicators: Elevated potassium Current BUN/Cr/GFR: 21/1.01/>90 Treatment: IVF: NS @75 mls/hr In order to capture the severity of condition, please clarify if the condition signifies: Acute renal failure ruled out Acute renal failure, Please specify etiology (if known): Cortical Necrosis Medullary Necrosis Tubular Necrosis Acute kidney injury Other, please specify Unable to determine acute kidney injury MTDD
== END 2019-09-05 17:33 | disposition home health service (06) | DRG 580 ==
LOC: 4SSUR 17:07 → 5NMEDONC 09-03 16:21
PROVIDERS: ADMIT Family Medicine; ATTEND Family Medicine
PROC: 0J990ZZ Drainage of Buttock Subcutaneous Tissue and Fascia, Open Approach (ICD-10-PCS; principal; 2019-09-04 07:30)
DX: L02.31 Cutaneous abscess of buttock (principal); C19 Malignant neoplasm of rectosigmoid junction; N13.1 Hydronephrosis with ureteral stricture, not elsewhere classified; C79.19 Secondary malignant neoplasm of other urinary organs; C79.89 Secondary malignant neoplasm of other specified sites; N17.9 Acute kidney failure, unspecified; L03.317 Cellulitis of buttock; K60.4 Rectal fistula; E87.5 Hyperkalemia; I10 Essential (primary) hypertension; D50.9 Iron deficiency anemia, unspecified; R21 Rash and other nonspecific skin eruption; M54.2 Cervicalgia; M54.5 Low back pain; R51 Headache; G89.3 Neoplasm related pain (acute) (chronic); Z79.899 Other long term (current) drug therapy; Z93.3 Colostomy status; Z88.5 Allergy status to narcotic agent; Z80.8 Family history of malignant neoplasm of other organs or systems; Z82.49 Family history of ischemic heart disease and other diseases of the circulatory system
CPT/HCPCS: 72193; 80048; 80053; 80202; 82378; 83735; 85025; 85610; 85730; 87040; 87070; 87075; 87205

== ENCOUNTER 2019-10-07 13:46 | Inpatient (IN) | payer OTHER ==
[2019-10-07] MEDS ORDERED: SODIUM CHLORIDE 0.9% 500 ML 500 ML IV STA (14:21)
[2019-10-07] MEDS ORDERED: SODIUM CHLORIDE 0.9% 1,000 ML IV STA (14:21)
[2019-10-07] MEDS ORDERED: ONDANSETRON 4 MG/2 ML VIAL IVP STA (14:21)
[2019-10-07] MEDS ORDERED: HYDROmorphone 1 MG/ML 1 ML SYRINGE IVP STA (14:21)
--- NOTE | 2019-10-07 14:40 | ED ---
Abdominal Pain HPI - General Chief Complaint: Abdominal Pain Stated Complaint: Bloating, post surgery 2 weeks ago Time Seen by Provider: 10/07/19 14:09 Source: patient, RN notes reviewed, old records reviewed Mode of arrival: ambulatory Limitations: no limitations - History of Present Illness Initial Comments: Patient is a 39-year-old male with history of stage IV colon cancer. Presents emergency department today for evaluation with complaints of abdominal distention and bloating for the past 5 days. Patient reportedly had a rectal abscess and this was drained and he has an indwelling Samreen drain at the rectum by Dr. Simmons. Patient reports that there is no significant drainage from this. He does report somewhat darker urine and has noticed some jaundice appearance to his eyes. Patient states that he's had not much to eat, and states that he does have some gas coming through the ostomy site. Patient relates that he is not currently on chemotherapy or radiation. Patient reports that with that the swelling in his abdomen is even having swelling related to his testicles. He reports that it seems to be worsened heat, but will go down with a cold shower. - Related Data Home Medications Medication Instructions Recorded Confirmed HYDROmorphone [Dilaudid] 4 - 8 mg PO Q4-6H PRN 09/02/19 09/02/19 Ibuprofen [Advil] 400 mg PO Q8HR PRN 09/02/19 09/02/19 Lisinopril [Zestril] 10 mg PO DAILY 09/02/19 09/02/19 Regorafenib [Stivarga] 120 mg PO DIRECTED 09/02/19 09/02/19 Previous Rx's Medication Instructions Recorded Ampicillin-Sulbactam [Unasyn] 3 gm IVPB Q8HR #42 vial 09/05/19 Nicotine 14Mg/24Hr Patch [Habitrol] 1 patch TRANSDERM DAILY #30 patch 09/05/19 Pantoprazole [Protonix] 40 mg PO DAILY #30 tablet. 09/05/19 Allergies Allergy/AdvReac Type Severity Reaction Status Date / Time codeine AdvReac Nausea & Verified 10/07/19 14:02 Vomiting Review of Systems ROS Statement: Those systems with pertinent positive or pertinent negative responses have been documented in the HPI. ROS Other: All systems not noted in ROS Statement are negative. Past Medical History Past Medical History: Cancer Additional Past Medical History / Comment(s): colorectal - stage IV diagnosed 08/06/18 History of Any Multi-Drug Resistant Organisms: None Reported Past Surgical History: Bowel Resection, Orthopedic Surgery Additional Past Surgical History / Comment(s): right foot surgery, left hand surgery, mediport, perirectal abscess, colostomy, suprapubic cath, abdominal drain Past Anesthesia/Blood Transfusion Reactions: No Reported Reaction Past Psychological History: No Psychological Hx Reported Smoking Status: Never smoker Past Alcohol Use History: None Reported Past Drug Use History: None Reported - Past Family History Mother Family Medical History: Cancer Additional Family Medical History / Comment(s): skin ca Father Family Medical History: Hypertension General Exam - General Exam Comments Initial Comments: 39-year-old male. Alert and oriented 3. Patient is thin, appears in moderate discomfort. Limitations: no limitations General appearance: alert, in no apparent distress Head exam: Present: atraumatic, normocephalic, normal inspection Eye exam: Present: normal appearance, PERRL, EOMI. Absent: scleral icterus, conjunctival injection, periorbital swelling ENT exam: Present: normal exam, mucous membranes moist Neck exam: Present: normal inspection. Absent: tenderness, meningismus, lymphadenopathy Respiratory exam: Present: normal lung sounds bilaterally. Absent: respiratory distress, wheezes, rales, rhonchi, stridor Cardiovascular Exam: Present: regular rate, normal rhythm, normal heart sounds. Absent: systolic murmur, diastolic murmur, rubs, gallop, clicks GI/Abdominal exam: Present: soft, distended (Distended abdomen evidence of bruising around the abdominal wall site. Well-appearing ostomy site, suprapubic catheter, as well as fistula drain on the right side of the abdomen.), normal bowel sounds. Absent: tenderness, guarding, rebound, rigid Extremities exam: Present: normal inspection, full ROM, normal capillary refill. Absent: tenderness, pedal edema, joint swelling, calf tenderness Back exam: Present: normal inspection Neurological exam: Present: alert, oriented X3, CN II-XII intact Psychiatric exam: Present: normal affect, normal mood Skin exam: Present: warm, dry, intact, normal color. Absent: rash Course Vital Signs 10/07/19 13:56 Temperature 97.6 F Pulse Rate 113 H Respiratory 18 Rate Blood Pressure 121/86 O2 Sat by Pulse 97 Oximetry Medical Decision Making - Medical Decision Making This patient's a 39-year-old male presents emergency department today for evaluation with complaints of abdominal distention worsening over the past week. Patient has evidence of ascites and jaundice. At this time patient's milligram is 5 elevated liver enzymes. Lactic acid 4.4. Patient does be dehydrated. Patient CT on pelvis shows numerous liver metastases as well as new pulmonary masses and pleural effusion. Patient for new onset ascites. I discussed the case with COMPRESSION MOLDING MACHINE OPERATOR for Dr. Knight. Patient will be admitted at this time with consult to Dr. Conklin, interventional radiology and Dr. Arzate. - Lab Data Result diagrams: 10/07/19 15:22 10/07/19 15:37 Lab Results 10/07/19 10/07/19 10/07/19 Range/Units 15:22 15:37 15:37 WBC 11.8 H (3.8-10.6) k/uL RBC 4.81 (4.30-5.90) m/uL Hgb 11.4 L (13.0-17.5) gm/dL Hct 37.9 L (39.0-53.0) % MCV 78.9 L (80.0-100.0) fL MCH 23.7 L (25.0-35.0) pg MCHC 30.1 L (31.0-37.0) g/dL RDW 16.8 H (11.5-15.5) % Plt Count 363 (150-450) k/uL Neutrophils % 86 % Lymphocytes % 4 % Monocytes % 7 % Eosinophils % 1 % Basophils % 0 % Neutrophils # 10.1 H (1.3-7.7) k/uL Lymphocytes # 0.4 L (1.0-4.8) k/uL Monocytes # 0.8 (0-1.0) k/uL Eosinophils # 0.2 (0-0.7) k/uL Basophils # 0.0 (0-0.2) k/uL Hypochromasia Marked Poikilocytosis Slight Anisocytosis Slight Microcytosis Slight PT 13.6 H (9.0-12.0) sec INR 1.4 H (<1.2) APTT 21.3 L (22.0-30.0) sec Sodium 127 L (137-145) mmol/L Potassium 4.8 (3.5-5.1) mmol/L Chloride 92 L (98-107) mmol/L Carbon Dioxide 22 (22-30) mmol/L Anion Gap 13 mmol/L BUN 47 H (9-20) mg/dL Creatinine 1.19 (0.66-1.25) mg/dL Est GFR (CKD-EPI)AfAm 89 (>60 ml/min/1.73 sqM) Est GFR (CKD-EPI)NonAf 77 (>60 ml/min/1.73 sqM) Glucose 123 H (74-99) mg/dL Plasma Lactic Acid Subhash (0.7-2.0) mmol/L Calcium 8.6 (8.4-10.2) mg/dL Total Bilirubin 5.0 H (0.2-1.3) mg/dL AST 692 H (17-59) U/L ALT 431 H (4-49) U/L Alkaline Phosphatase 448 H (38-126) U/L Total Protein 6.7 (6.3-8.2) g/dL Albumin 3.0 L (3.5-5.0) g/dL Amylase 69 (30-110) U/L Lipase 236 (23-300) U/L Blood Type Blood Type Recheck Bld Type Recheck Status Antibody Screen Spec Expiration Date 10/07/19 10/07/19 Range/Units 15:37 15:37 WBC (3.8-10.6) k/uL RBC (4.30-5.90) m/uL Hgb (13.0-17.5) gm/dL Hct (39.0-53.0) % MCV (80.0-100.0) fL MCH (25.0-35.0) pg MCHC (31.0-37.0) g/dL RDW (11.5-15.5) % Plt Count (150-450) k/uL Neutrophils % % Lymphocytes % % Monocytes % % Eosinophils % % Basophils % % Neutrophils # (1.3-7.7) k/uL Lymphocytes # (1.0-4.8) k/uL Monocytes # (0-1.0) k/uL Eosinophils # (0-0.7) k/uL Basophils # (0-0.2) k/uL Hypochromasia Poikilocytosis Anisocytosis Microcytosis PT (9.0-12.0) sec INR (<1.2) APTT (22.0-30.0) sec Sodium (137-145) mmol/L Potassium (3.5-5.1) mmol/L Chloride (98-107) mmol/L Carbon Dioxide (22-30) mmol/L Anion Gap mmol/L BUN (9-20) mg/dL Creatinine (0.66-1.25) mg/dL Est GFR (CKD-EPI)AfAm (>60 ml/min/1.73 sqM) Est GFR (CKD-EPI)NonAf (>60 ml/min/1.73 sqM) Glucose (74-99) mg/dL Plasma Lactic Acid Subhash 4.4 H* (0.7-2.0) mmol/L Calcium (8.4-10.2) mg/dL Total Bilirubin (0.2-1.3) mg/dL AST (17-59) U/L ALT (4-49) U/L Alkaline Phosphatase (38-126) U/L Total Protein (6.3-8.2) g/dL Albumin (3.5-5.0) g/dL Amylase (30-110) U/L Lipase (23-300) U/L Blood Type O Positive Blood Type Recheck O Pos Bld Type Recheck Status No Antibody Screen NEGATIVE Spec Expiration Date 10/10/2019 - 233610/07/19 16:28 EKG performed at 1522 shows sinus tachycardia, older voltage criteria for LVH may be normal variant. Cannot rule septal infarct. Ventricular rate of 111 bpm. As 118 ms. Frustration is 92 ms. QT QTc is 316/477 ms. - Radiology Data Radiology results: report reviewed Numerous ulnar and masses consistent with metastatic disease significantly increased compared to old exam numerous liver masses consistent with metastatic disease are increased from old exam.Ascites. Pleural effusion. There is new right-sided hydronephrosis and hydroureter consistent with distal ureteral instruction from tumor invasion from the posterior urinary bladder. Disposition Clinical Impression: Rectal mass, Ascites, Pleural effusion, Jaundice, Dehydration Disposition: ADMITTED IP TO THIS HOSP Condition: Stable Is patient prescribed a controlled substance at d/c from ED?: No Referrals: Eric Montgomery DO [Primary Care Provider] - 1-2 days Time of Disposition: 17:56
[2019-10-07 15:53] LABS: Anisocytosis Slight; Basophils % (A) 0 %; Eosinophils # (A) 0.2 k/uL (0-0.7); Eosinophils % (A) 1 %; HCT 37.9 % (39.0-53.0); HGB 11.4 gm/dL (13.0-17.5); Hypochromasia Marked; Lymphocytes # (A) 0.4 k/uL (1.0-4.8); Lymphocytes % (A) 4 %; MCH 23.7 pg (25.0-35.0); MCHC 30.1 g/dL (31.0-37.0); MCV 78.9 fL (80.0-100.0); Microcytosis Slight; Monocytes # (A) 0.8 k/uL (0-1.0); Monocytes % (A) 7 %; Neutrophils # (A) 10.1 k/uL (1.3-7.7); Neutrophils % (A) 86 %; Platelet Count 363 k/uL (150-450); Poikilocytosis Slight; RBC 4.81 m/uL (4.30-5.90); RDW 16.8 % (11.5-15.5); WBC 11.8 k/uL (3.8-10.6)
[2019-10-07 16:08] LABS: Calcium 8.6 mg/dL (8.4-10.2); Potassium 4.8 mmol/L (3.5-5.1); Total Protein 6.7 g/dL (6.3-8.2)
[2019-10-07 16:33] LABS: INR 1.4 (<1.2); Prothrombin Time 13.6 sec (9.0-12.0)
[2019-10-07 16:42] LABS: Partial Thromboplastin Time 21.3 sec (22.0-30.0)
--- NOTE | 2019-10-07 17:16 | CT ---
EXAMINATION TYPE: CT abdomen pelvis w con DATE OF EXAM: 10/07/2019 COMPARISON: 05/12/2019 HISTORY: abdominal distention, hx of colorectal CA CT DLP: 994 mGycm Automated exposure control for dose reduction was used. CONTRAST: Performed with IV Contrast, patient injected with 100 mL of Isovue 300. Images were obtained from the diaphragm to the floor the pelvis with IV contrast. There is moderate-sized left pleural effusion. There are numerous pulmonary masslike densities in the visualized lung simon that measure up to 2.4 cm. Heart size is normal. There is no pericardial effu maribell. There are numerous hypodense variable sized masses throughout the liver which is enlarged. There is s ome ring enhancement. Spleen is intact. There is no evidence of pancreatic mass. There is no adrenal mass. Kidneys have normal size. There is right-sided hydronephrosis. Delayed imag es showed delayed pyelogram on the right side. There is right-sided hydroureter. There is large mass in the pelvis posterior to the urinary bladder that measures 6.5 cm consistent with rectal tumor. The re is suprapubic catheter in the urinary bladder in good position. Posterior wall of the urinary blad sherin is irregular consistent with tumor invasion. There is moderate abdominal ascites. There is no elva dence of bowel obstruction. There is ileostomy in the right mid abdomen. Lumbar vertebra have normal alignment. Disc spaces are fairly normal. There is no compression fractur e. Bony pelvis is intact. Hip joints appear normal. IMPRESSION: Numerous pulmonary masses consistent with metastatic disease significantly increased compared to old exam. Numerous liver masses consistent with metastatic disease significantly increased compared to ol d exam. There is new abdominal ascites compared to old exam. There is new left pleural effusion. There is new right-sided hydronephrosis and hydroureter consistent with distal ureteral obstruction f rom tumor invasion of the posterior urinary bladder.
[2019-10-07] MEDS ORDERED: IBUPROFEN 400 MG TAB PO PRN (17:56)
[2019-10-07] MEDS ORDERED: ONDANSETRON 4 MG/2 ML VIAL IVP PRN (17:56)
[2019-10-07] MEDS ORDERED: NALOXONE 0.4 MG/ML 1 ML VIAL IV PRN (17:56)
[2019-10-07] MEDS ORDERED: ACETAMINOPHEN TAB 325 MG TAB PO PRN (17:56)
[2019-10-07] MEDS ORDERED: ALPRAZolam 0.25 MG TAB PO PRN (19:52)
[2019-10-07] MEDS ORDERED: TEMAZEPAM 15 MG CAP PO PRN (19:52)
[2019-10-07] MEDS: HYDROmorphone 1 MG/ML 1 ML SYRINGE IVP PRN (20:06)
[2019-10-07] MEDS: PIPERACILLIN-TAZOBACTAM 3.375 GM in SODIUM CHLORIDE 0.9% 100 ML IVPB SCH (20:56)
--- NOTE | 2019-10-07 21:27 | HP ---
HISTORY AND PHYSICAL DATE OF SERVICE: 10/07/2019 CHIEF COMPLAINT: Abdominal distention and bloating and pain. HISTORY OF PRESENT ILLNESS: This 39-year-old gentleman with a past medical history of colon cancer stage IV, diagnosed in July of this year, history of bowel resection, history of orthopedic surgery, being followed by Dr. Montgomery in the outpatient setting was recently admitted with gluteal abscess and the Samreen drain was placed and the patient is complaining of progressive abdominal distention, some jaundice and patient came to [facility] and admitted for further evaluation and treatment. An abdominal and pelvis CT scan showed numerous pulmonary masses consistent with metastatic disease and significant increase compared to old ones and numerous liver METS consistent with metastatic disease as well. The abdominal ascites also noted. There is new right-sided hydronephrosis and hydroureter was also noted. There is no history of fever, rigors. No history of headache, loss of consciousness, seizures at this time. PAST MEDICAL HISTORY: History of colon cancer stage IV, history of bowel resection, history of DJD. MEDICATIONS: Prior to admission include: 1. Stivarga 120 mg p.r.n. 2. Protonix 40 mg daily. 3. Habitrol 14 daily. 4. Zestril 10 mg daily. 5. Advil 400 mg q.8 p.r.n. 6. Dilaudid 40 mg q.4 to 6 p.r.n. 7. Unasyn 3 g p.o. q.8 p.r.n.. ALLERGIES: CODEINE. FAMILY HISTORY: History of skin cancer in the family. SOCIAL HISTORY: No history of smoking. No history of alcohol intake. REVIEW OF SYSTEMS: ENT: No diminished vision. No diminished hearing. CARDIOVASCULAR: No angina or palpitations. RESPIRATORY: As mentioned earlier. GI: As mentioned earlier. : As mentioned earlier. Nervous system: No numbness or weakness. Allergy/Immunology: No asthma or hayfever. Musculoskeletal as mentioned earlier. HEMATOLOGY/ONCOLOGY: As mentioned earlier. Endocrine: No history of diabetes or hypothyroidism. CONSTITUTIONAL: As mentioned earlier. DERMATOLOGY: Negative. RHEUMATOLOGY negative. PSYCHIATRY as mentioned. PHYSICAL EXAMINATION: Alert and oriented times three. Pulse 113, blood pressure 121/86, respiration 18, temperature 97.6, pulse ox 97% on room air. HEENT is conjunctivae icteric. Oral mucosa moist. NECK is no jugular venous distention. Cardiovascular: S1, S2 muffled. Respiration: Breath sounds diminished in the bases. No rhonchi. No crackles. ABDOMEN: Soft. Mild diffuse distention present. Ascites present. LEGS: No edema. No swelling. NERVOUS SYSTEM: Higher functions as mentioned earlier. Moves all 4 limbs. No focal motor or sensory deficits. Lymphatics: No lymph nodes palpable in the neck, axillae or groin. SKIN: No ulcer. JOINTS: No active deforming arthropathy. LAB STUDIES: WBC 11.8, hemoglobin 11.4. INR is 1.4. Sodium 127 and lactic acid 4.4. Total bilirubin is 5, AST 692 and ALT 431, alkaline phosphatase is 448. ASSESSMENT: 1. Stage IV colon cancer with mets. 2. Abdominal distention and pain with possible ascites, possibly malignant. 3. Increased bilirubin with possible obstructive jaundice secondary to malignancy. 4. Hyponatremia. 5. Pulmonary METS. 6. Coagulopathy secondary to liver METS. 7. Anemia microcytic. 8. Increased WBC. 9. History of degenerative joint disease. 10.History of MediPort. 11.History of a perirectal abscess, recently status post [place] drainage. 12.History of colostomy. 13.History of suprapubic catheter. 14.History of abdominal drain. 15.Right-sided hydronephrosis and hydroureter with possibly distal ureteral obstruction in the most recent CT scan. 16.FULL CODE. RECOMMENDATIONS AND DISCUSSION: In this 39-year-old gentleman who presented with multiple complex medical issues, we will monitor the patient closely. Continue the current medications, and treatment, pain management. I would recommend ultrasound and possible abdominal paracentesis. Otherwise, hematology oncology evaluation. Resume the home medications. Avoid hepatotoxic medications. Repeat labs and cautious IV fluids. We will repeat the lactic acid. I would also recommend cultures and empiric antibiotics also. We will closely monitor. Further recommendations to follow. A copy of this forwarded to Dr. Montgomery who is the primary physician. Dr. Montgomery will follow tomorrow. MMODL / IJN: [id number] /
[2019-10-07 22:33] LABS: Appearance,Urine Turbid (Clear); Bacteria,Urine Many /hpf; Bilirubin,Urine 1+ (Negative); Blood,Urine Moderate (Negative); Color,Urine Dark Yellow; Glucose,Urine (UA) Negative (Negative); Hyaline Casts,Urine 14 /lpf (0-2); Ketones,Urine Negative (Negative); Leukocyte Esterase,Urine Large (Negative); Nitrite,Urine Negative (Negative); Protein,Urine 1+ (Negative); RBC,Urine 40 /hpf (0-5); Squamous Epithelial Cell,Urine 2 /hpf (0-4); WBC,Urine 135 /hpf (0-5)
[2019-10-07 22:34] LABS: Specific Gravity,Urine 1.049 (1.001-1.035)
[2019-10-08] MEDS: KETOROLAC 30 MG/ML 1 ML VIAL IVP PRN ×2 (00:08→13:56)
[2019-10-08] MEDS: SODIUM CHLORIDE 0.9% 1,000 ML IV SCH ×2 (00:10→15:06)
[2019-10-08] MEDS: PIPERACILLIN-TAZOBACTAM 3.375 GM in SODIUM CHLORIDE 0.9% 100 ML IVPB SCH ×3 (04:11→20:02)
[2019-10-08 06:56] LABS: Anisocytosis Slight; Basophils % (A) 0 %; Eosinophils # (A) 0.3 k/uL (0-0.7); Eosinophils % (A) 3 %; HCT 38.2 % (39.0-53.0); HGB 11.3 gm/dL (13.0-17.5); Hypochromasia Marked; Lymphocytes # (A) 0.6 k/uL (1.0-4.8); Lymphocytes % (A) 6 %; MCH 24.1 pg (25.0-35.0); MCHC 29.6 g/dL (31.0-37.0); MCV 81.2 fL (80.0-100.0); Mean Platelet Volume 8.5; Monocytes % (A) 9 %; Neutrophils # (A) 9.4 k/uL (1.3-7.7); Neutrophils % (A) 81 %; Platelet Count 352 k/uL (150-450); Poikilocytosis Slight; RBC 4.71 m/uL (4.30-5.90); RDW 16.5 % (11.5-15.5); WBC 11.6 k/uL (3.8-10.6)
[2019-10-08 07:13] LABS: Albumin 2.8 g/dL (3.5-5.0); Calcium 8.3 mg/dL (8.4-10.2); Potassium 4.2 mmol/L (3.5-5.1); Total Bilirubin 4.5 mg/dL (0.2-1.3); Total Protein 6.3 g/dL (6.3-8.2)
[2019-10-08] MEDS: PANTOPRAZOLE 40 MG/10 ML VIAL IV SCH (08:18)
--- NOTE | 2019-10-08 10:11 | P.GSCN ---
<Ayde Chau - Last Filed: 10/08/19 10:08> History of Present Illness Consult date: 10/08/19 Reason for Consult: rectal cancer Requesting physician: Saniya Bui History of present illness: CHIEF COMPLAINT: Rectal cancer HISTORY OF PRESENT ILLNESS: 39-year-old male with a history of rectal cancer with metastasis to the liver and lung who is known to surgical services from previous hospital admissions. Patient underwent incision and drainage of right buttock abscess on 09/04/2019 with placement of D[place]mu[place] drain. Patient presented to the emergency room with a chief complaint of abdominal distention. Patient states he felt constipated on Monday and took some [id number] medications including MiraLAX to help him have a bowel movement. He did have some stool output after that. He reports his abdominal distention has not improved. He reports swelling in his legs and scrotum as well. Patient states he is not able to eat anything at the moment due to his abdominal distention and feeling "full". Patient reports he had stool output in his bag yesterday but does not have any in his bag currently. He states his oncologist recommended radiation therapy but he has declined to have it because he has two young kids and wants to be able to enjoy the time he has left with them. PAST MEDICAL HISTORY: See list. PAST SURGICAL HISTORY: See list. SOCIAL HISTORY: No illicit drug use. REVIEW OF SYSTEMS: CONSTITUTIONAL: Denies fever or chills. HEENT: Denies blurred vision, vision changes, or eye pain. Denies hemoptysis CARDIOVASCULAR: Denies chest pain or pressure. RESPIRATORY: No shortness of breath. GASTROINTESTINAL: Refer to [facility] for pertinent findings HEMATOLOGIC: Denies bleeding disorders. GENITOURINARY: Denies any blood in urine. SKIN: Denies pruitis. Denies rash. History of rectal abscess with lucas drain placement. PHYSICAL EXAM: VITAL SIGNS: Reviewed. GENERAL: Well-developed in no acute distress. HEENT: No sclera icterus. Extraocular movements grossly intact. Moist buccal mucosa. Head is atraumatic, normocephalic. ABDOMEN: Firm. Distended. Ostomy noted without stool output. Patient reports stool output yesterday. NEUROLOGIC: Alert and oriented. Cranial nerves II through XII grossly intact. SKIN: Dunsmuir drain to buttocks noted. LABORATORY DATA: WBC 11.6. Hemoglobin 11.3. Platelet count 352. Sodium 128. Potassium 4.2. BUN 47. Creatinine 1.30. Bilirubin 4.5. AST 621. ALT 395. Alkaline phosphatase 419. IMAGING: CT abdomen and pelvis: Numerous pulmonary masses consistent with metastatic disease significantly increased compared to old exam. Numerous liver masses consistent with metastatic disease significantly increased compared to old exam. No abdominal ascites compared to old exam. Left sided. Pleural effusion. Right- sided hydronephrosis and hydroureter consistent with distal ureteral obstruction from tumor invasion of the posterior urinary bladder.No evidence of a bowel obstruction. ASSESSMENT: 1. Abdominal distention 2. Ascites 3. Stage IV rectal cancer with liver and lung mets PLAN: Interventional radiology consulted for possible drainage of ascites Oncology consulted. Await evaluation and recommendations Dr. Arzate will re-evaluate patient this afternoon Nurse practitioner note has been reviewed by physician. Signing provider agrees with the documented findings, assessment, and plan of care. Past Medical History Past Medical History: Cancer Additional Past Medical History / Comment(s): colorectal - stage IV diagnosed 08/06/18 History of Any Multi-Drug Resistant Organisms: None Reported Past Surgical History: Bowel Resection, Orthopedic Surgery Additional Past Surgical History / Comment(s): right foot surgery, left hand surgery, mediport, perirectal abscess, colostomy, suprapubic cath, abdominal dr bernstein Past Anesthesia/Blood Transfusion Reactions: No Reported Reaction Past Psychological History: No Psychological Hx Reported Smoking Status: Never smoker Past Alcohol Use History: None Reported Additional Past Alcohol Use History / Comment(s): Patient states stopped drinki ng about 12 beers a day 3 years ago. Past Drug Use History: None Reported - Past Family History Mother Family Medical History: Cancer Additional Family Medical History / Comment(s): skin ca Father Family Medical History: Hypertension Medications and Allergies Home Medications Medication Instructions Recorded Confirmed Type HYDROmorphone [Dilaudid] 8 mg PO Q4-6H 09/02/19 10/07/19 History Ibuprofen [Advil] 400 mg PO Q4H 09/02/19 10/07/19 History Lisinopril [Zestril] 20 mg PO DAILY 09/02/19 10/07/19 History fentaNYL 75MCG/HR PATCH [Duragesic 1 patch TRANSDERM Q72H 10/07/19 10/07/19 History 75MCG/HR] Allergies Allergy/AdvReac Type Severity Reaction Status Date / Time codeine AdvReac Nausea & Verified 10/07/19 19:55 Vomiting Surgical - Exam Vital Signs Temp Pulse Resp BP Pulse Ox 97.6 F 113 H 18 121/86 97 10/07/19 13:56 10/07/19 13:56 10/07/19 13:56 10/07/19 13:56 10/07/19 13:56 Results - Labs 10/08/19 06:25 10/08/19 06:25 Abnormal Lab Results - Last 24 Hours (Table) 10/07/19 10/07/19 10/07/19 Range/Units 15:22 15:37 15:37 WBC 11.8 H (3.8-10.6) k/uL Hgb 11.4 L (13.0-17.5) gm/dL Hct 37.9 L (39.0-53.0) % MCV 78.9 L (80.0-100.0) fL MCH 23.7 L (25.0-35.0) pg MCHC 30.1 L (31.0-37.0) g/dL RDW 16.8 H (11.5-15.5) % Neutrophils # 10.1 H (1.3-7.7) k/uL Lymphocytes # 0.4 L (1.0-4.8) k/uL PT 13.6 H (9.0-12.0) sec INR 1.4 H (<1.2) APTT 21.3 L (22.0-30.0) sec Sodium 127 L (137-145) mmol/L Chloride 92 L (98-107) mmol/L BUN 47 H (9-20) mg/dL Creatinine (0.66-1.25) mg/dL Glucose 123 H (74-99) mg/dL Plasma Lactic Acid Subhash (0.7-2.0) mmol/L Calcium (8.4-10.2) mg/dL Total Bilirubin 5.0 H (0.2-1.3) mg/dL AST 692 H (17-59) U/L ALT 431 H (4-49) U/L Alkaline Phosphatase 448 H (38-126) U/L Albumin 3.0 L (3.5-5.0) g/dL Ur Specific [place] (1.001-1.035) Urine Protein (Negative) Urine Blood (Negative) Urine Bilirubin (Negative) Ur Leukocyte Esterase (Negative) Urine RBC (0-5) /hpf Urine WBC (0-5) /hpf Urine Bacteria (None) /hpf Hyaline Casts (0-2) /lpf 10/07/19 10/07/19 10/07/19 Range/Units 15:37 20:13 22:19 WBC (3.8-10.6) k/uL Hgb (13.0-17.5) gm/dL Hct (39.0-53.0) % MCV (80.0-100.0) fL MCH (25.0-35.0) pg MCHC (31.0-37.0) g/dL RDW (11.5-15.5) % Neutrophils # (1.3-7.7) k/uL Lymphocytes # (1.0-4.8) k/uL PT (9.0-12.0) sec INR (<1.2) APTT (22.0-30.0) sec Sodium (137-145) mmol/L Chloride (98-107) mmol/L BUN (9-20) mg/dL Creatinine (0.66-1.25) mg/dL Glucose (74-99) mg/dL Plasma Lactic Acid Subhash 4.4 H* 4.4 H* (0.7-2.0) mmol/L Calcium (8.4-10.2) mg/dL Total Bilirubin (0.2-1.3) mg/dL AST (17-59) U/L ALT (4-49) U/L Alkaline Phosphatase (38-126) U/L Albumin (3.5-5.0) g/dL Ur Specific [place] 1.049 H (1.001-1.035) Urine Protein 1+ H (Negative) Urine Blood Moderate H (Negative) Urine Bilirubin 1+ H (Negative) Ur Leukocyte Esterase Large H (Negative) Urine RBC 40 H (0-5) /hpf Urine WBC 135 H (0-5) /hpf Urine Bacteria Many H (None) /hpf Hyaline Casts 14 H (0-2) /lpf 10/08/19 10/08/19 Range/Units 06:25 06:25 WBC 11.6 H (3.8-10.6) k/uL Hgb 11.3 L (13.0-17.5) gm/dL Hct 38.2 L (39.0-53.0) % MCV (80.0-100.0) fL MCH 24.1 L (25.0-35.0) pg MCHC 29.6 L (31.0-37.0) g/dL RDW 16.5 H (11.5-15.5) % Neutrophils # 9.4 H (1.3-7.7) k/uL Lymphocytes # 0.6 L (1.0-4.8) k/uL PT (9.0-12.0) sec INR (<1.2) APTT (22.0-30.0) sec Sodium 128 L (137-145) mmol/L Chloride 93 L (98-107) mmol/L BUN 47 H (9-20) mg/dL Creatinine 1.30 H (0.66-1.25) mg/dL Glucose 121 H (74-99) mg/dL Plasma Lactic Acid Subhash (0.7-2.0) mmol/L Calcium 8.3 L (8.4-10.2) mg/dL Total Bilirubin 4.5 H (0.2-1.3) mg/dL AST 621 H (17-59) U/L ALT 395 H (4-49) U/L Alkaline Phosphatase 419 H (38-126) U/L Albumin 2.8 L (3.5-5.0) g/dL Ur Specific [place] (1.001-1.035) Urine Protein (Negative) Urine Blood (Negative) Urine Bilirubin (Negative) Ur Leukocyte Esterase (Negative) Urine RBC (0-5) /hpf Urine WBC (0-5) /hpf Urine Bacteria (None) /hpf Hyaline Casts (0-2) /lpf Diabetes panel 10/07/19 10/08/19 Range/Units 15:37 06:25 Sodium 127 L 128 L (137-145) mmol/L Potassium 4.8 4.2 (3.5-5.1) mmol/L Chloride 92 L 93 L (98-107) mmol/L Carbon Dioxide 22 22 (22-30) mmol/L BUN 47 H 47 H (9-20) mg/dL Creatinine 1.19 1.30 H (0.66-1.25) mg/dL Glucose 123 H 121 H (74-99) mg/dL Calcium 8.6 8.3 L (8.4-10.2) mg/dL AST 692 H 621 H (17-59) U/L ALT 431 H 395 H (4-49) U/L Alkaline Phosphatase 448 H 419 H (38-126) U/L Total Protein 6.7 6.3 (6.3-8.2) g/dL Albumin 3.0 L 2.8 L (3.5-5.0) g/dL Calcium panel 10/07/19 10/08/19 Range/Units 15:37 06:25 Calcium 8.6 8.3 L (8.4-10.2) mg/dL Albumin 3.0 L 2.8 L (3.5-5.0) g/dL Pituitary panel 10/07/19 10/08/19 Range/Units 15:37 06:25 Sodium 127 L 128 L (137-145) mmol/L Potassium 4.8 4.2 (3.5-5.1) mmol/L Chloride 92 L 93 L (98-107) mmol/L Carbon Dioxide 22 22 (22-30) mmol/L BUN 47 H 47 H (9-20) mg/dL Creatinine 1.19 1.30 H (0.66-1.25) mg/dL Glucose 123 H 121 H (74-99) mg/dL Calcium 8.6 8.3 L (8.4-10.2) mg/dL Adrenal panel 10/07/19 10/08/19 Range/Units 15:37 06:25 Sodium 127 L 128 L (137-145) mmol/L Potassium 4.8 4.2 (3.5-5.1) mmol/L Chloride 92 L 93 L (98-107) mmol/L Carbon Dioxide 22 22 (22-30) mmol/L BUN 47 H 47 H (9-20) mg/dL Creatinine 1.19 1.30 H (0.66-1.25) mg/dL Glucose 123 H 121 H (74-99) mg/dL Calcium 8.6 8.3 L (8.4-10.2) mg/dL Total Bilirubin 5.0 H 4.5 H (0.2-1.3) mg/dL AST 692 H 621 H (17-59) U/L ALT 431 H 395 H (4-49) U/L Alkaline Phosphatase 448 H 419 H (38-126) U/L Total Protein 6.7 6.3 (6.3-8.2) g/dL Albumin 3.0 L 2.8 L (3.5-5.0) g/dL <Morenita Arzateony - Last Filed: 10/08/19 13:07> History of Present Illness History of present illness: As above. 39-year-old male with stage IV rectal cancer. Patient with worsening abdominal pain over the last few days along with distention. CAT scan shows worsening ascites and liver nearly replaced with tumor. Agree with plans for palliative. Await oncology evaluation but patient appears to be interested in a hospice at this point which is unfortunately appropriate. Keep drain in place for now at the previous buttock abscess site. Surgical - Exam Vital Signs Temp Pulse Resp BP Pulse Ox 97.6 F 113 H 18 121/86 97 10/07/19 13:56 10/07/19 13:56 10/07/19 13:56 10/07/19 13:56 10/07/19 13:56 Results - Labs 10/08/19 06:25 10/08/19 06:25 Abnormal Lab Results - Last 24 Hours (Table) 10/07/19 10/07/19 10/07/19 Range/Units 15:22 15:37 15:37 WBC 11.8 H (3.8-10.6) k/uL Hgb 11.4 L (13.0-17.5) gm/dL Hct 37.9 L (39.0-53.0) % MCV 78.9 L (80.0-100.0) fL MCH 23.7 L (25.0-35.0) pg MCHC 30.1 L (31.0-37.0) g/dL RDW 16.8 H (11.5-15.5) % Neutrophils # 10.1 H (1.3-7.7) k/uL Lymphocytes # 0.4 L (1.0-4.8) k/uL PT 13.6 H (9.0-12.0) sec INR 1.4 H (<1.2) APTT 21.3 L (22.0-30.0) sec Sodium 127 L (137-145) mmol/L Chloride 92 L (98-107) mmol/L BUN 47 H (9-20) mg/dL Creatinine (0.66-1.25) mg/dL Glucose 123 H (74-99) mg/dL Plasma Lactic Acid Subhash (0.7-2.0) mmol/L Calcium (8.4-10.2) mg/dL Total Bilirubin 5.0 H (0.2-1.3) mg/dL AST 692 H (17-59) U/L ALT 431 H (4-49) U/L Alkaline Phosphatase 448 H (38-126) U/L Albumin 3.0 L (3.5-5.0) g/dL Ur Specific [place] (1.001-1.035) Urine Protein (Negative) Urine Blood (Negative) Urine Bilirubin (Negative) Ur Leukocyte Esterase (Negative) Urine RBC (0-5) /hpf Urine WBC (0-5) /hpf Urine Bacteria (None) /hpf Hyaline Casts (0-2) /lpf 10/07/19 10/07/19 10/07/19 Range/Units 15:37 20:13 22:19 WBC (3.8-10.6) k/uL Hgb (13.0-17.5) gm/dL Hct (39.0-53.0) % MCV (80.0-100.0) fL MCH (25.0-35.0) pg MCHC (31.0-37.0) g/dL RDW (11.5-15.5) % Neutrophils # (1.3-7.7) k/uL Lymphocytes # (1.0-4.8) k/uL PT (9.0-12.0) sec INR (<1.2) APTT (22.0-30.0) sec Sodium (137-145) mmol/L Chloride (98-107) mmol/L BUN (9-20) mg/dL Creatinine (0.66-1.25) mg/dL Glucose (74-99) mg/dL Plasma Lactic Acid Subhash 4.4 H* 4.4 H* (0.7-2.0) mmol/L Calcium (8.4-10.2) mg/dL Total Bilirubin (0.2-1.3) mg/dL AST (17-59) U/L ALT (4-49) U/L Alkaline Phosphatase (38-126) U/L Albumin (3.5-5.0) g/dL Ur Specific [place] 1.049 H (1.001-1.035) Urine Protein 1+ H (Negative) Urine Blood Moderate H (Negative) Urine Bilirubin 1+ H (Negative) Ur Leukocyte Esterase Large H (Negative) Urine RBC 40 H (0-5) /hpf Urine WBC 135 H (0-5) /hpf Urine Bacteria Many H (None) /hpf Hyaline Casts 14 H (0-2) /lpf 10/08/19 10/08/19 Range/Units 06:25 06:25 WBC 11.6 H (3.8-10.6) k/uL Hgb 11.3 L (13.0-17.5) gm/dL Hct 38.2 L (39.0-53.0) % MCV (80.0-100.0) fL MCH 24.1 L (25.0-35.0) pg MCHC 29.6 L (31.0-37.0) g/dL RDW 16.5 H (11.5-15.5) % Neutrophils # 9.4 H (1.3-7.7) k/uL Lymphocytes # 0.6 L (1.0-4.8) k/uL PT (9.0-12.0) sec INR (<1.2) APTT (22.0-30.0) sec Sodium 128 L (137-145) mmol/L Chloride 93 L (98-107) mmol/L BUN 47 H (9-20) mg/dL Creatinine 1.30 H (0.66-1.25) mg/dL Glucose 121 H (74-99) mg/dL Plasma Lactic Acid Subhash (0.7-2.0) mmol/L Calcium 8.3 L (8.4-10.2) mg/dL Total Bilirubin 4.5 H (0.2-1.3) mg/dL AST 621 H (17-59) U/L ALT 395 H (4-49) U/L Alkaline Phosphatase 419 H (38-126) U/L Albumin 2.8 L (3.5-5.0) g/dL Ur Specific [place] (1.001-1.035) Urine Protein (Negative) Urine Blood (Negative) Urine Bilirubin (Negative) Ur Leukocyte Esterase (Negative) Urine RBC (0-5) /hpf Urine WBC (0-5) /hpf Urine Bacteria (None) /hpf Hyaline Casts (0-2) /lpf Microbiology - Last 24 Hours (Table) 10/07/19 22:19 Urine Culture - Preliminary Urine,Suprapubic Diabetes panel 10/07/19 10/08/19 Range/Units 15:37 06:25 Sodium 127 L 128 L (137-145) mmol/L Potassium 4.8 4.2 (3.5-5.1) mmol/L Chloride 92 L 93 L (98-107) mmol/L Carbon Dioxide 22 22 (22-30) mmol/L BUN 47 H 47 H (9-20) mg/dL Creatinine 1.19 1.30 H (0.66-1.25) mg/dL Glucose 123 H 121 H (74-99) mg/dL Calcium 8.6 8.3 L (8.4-10.2) mg/dL AST 692 H 621 H (17-59) U/L ALT 431 H 395 H (4-49) U/L Alkaline Phosphatase 448 H 419 H (38-126) U/L Total Protein 6.7 6.3 (6.3-8.2) g/dL Albumin 3.0 L 2.8 L (3.5-5.0) g/dL Calcium panel 10/07/19 10/08/19 Range/Units 15:37 06:25 Calcium 8.6 8.3 L (8.4-10.2) mg/dL Albumin 3.0 L 2.8 L (3.5-5.0) g/dL Pituitary panel 10/07/19 10/08/19 Range/Units 15:37 06:25 Sodium 127 L 128 L (137-145) mmol/L Potassium 4.8 4.2 (3.5-5.1) mmol/L Chloride 92 L 93 L (98-107) mmol/L Carbon Dioxide 22 22 (22-30) mmol/L BUN 47 H 47 H (9-20) mg/dL Creatinine 1.19 1.30 H (0.66-1.25) mg/dL Glucose 123 H 121 H (74-99) mg/dL Calcium 8.6 8.3 L (8.4-10.2) mg/dL Adrenal panel 10/07/19 10/08/19 Range/Units 15:37 06:25 Sodium 127 L 128 L (137-145) mmol/L Potassium 4.8 4.2 (3.5-5.1) mmol/L Chloride 92 L 93 L (98-107) mmol/L Carbon Dioxide 22 22 (22-30) mmol/L BUN 47 H 47 H (9-20) mg/dL Creatinine 1.19 1.30 H (0.66-1.25) mg/dL Glucose 123 H 121 H (74-99) mg/dL Calcium 8.6 8.3 L (8.4-10.2) mg/dL Total Bilirubin 5.0 H 4.5 H (0.2-1.3) mg/dL AST 692 H 621 H (17-59) U/L ALT 431 H 395 H (4-49) U/L Alkaline Phosphatase 448 H 419 H (38-126) U/L Total Protein 6.7 6.3 (6.3-8.2) g/dL Albumin 3.0 L 2.8 L (3.5-5.0) g/dL
[2019-10-08] MEDS: HYDROmorphone 1 MG/ML 1 ML SYRINGE IVP PRN (11:17)
--- NOTE | 2019-10-08 15:43 | P.CONS ---
History of Present Illness - Reason for Consult Consult date: 10/08/19 Metastatic Colorectal Cancer Requesting physician: Saniya Bui - Chief Complaint Abdominal distention and pain - History of Present Illness Rectal Cancer HPI : This is a very nice patient who prsented to [facility] in 07/2018 with rectal of few months duration and change in stool caliber, he was found to have hypochromic microcytic anemia (hemoglobin 10.8gm/dl),had a colonoscopy on 08/07/2018 which revealed an obstructing mass right at the anus,biopsy was positive for moderatelly differentiated adenocarcinoma. On 08/06/2018,CT scan of abdomen/pelvis revealed large rectosigmoid mass with effacement of seminal vesicule on the right and multiple suspicious liver lesio ns,CT scan of chest was negative. MSI-Stable,KRAS mutant,NRAS,BRAF negative and HER2/ZEINAB are negative CEA on 08/21/2018 was 346.9 He started FOLFIRI regimen on 08/14/2018.(no avastin statrted due to concern of possible developing bowel obstruction) On 10/15/2018,repeat CT scan of chest/abdomen/pelvis revealed significant improvement On 01/22/2019,repeat CT scan chest/abdomen/pelvis revealed futher improvement in his disease.On 02/21/2019,CEA was up to 67.5 and FOLFIR was discontinued. 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 Has c/o of some mild fatigue after taking, resolves, no N,V, D, he is having blood and mucus from the rectum, odor is similar to previous when he was chemo, no missed doses, no other c/o on a 10 point ROS, wants to review scan results. 08/12/19-Pt here today, he tried 4 stivarga tabs x 4 days, he had oral irritation, moderate, PPE, moderate, skin cracked on his feet, knuckles turned red, painful, joint swelling, he reduced the dose to 3 tabs and the symptoms are improving. Has a new lump on the right side of his tail bone, there is pain at the tailbone, feels bruised. He does have increase pink mucus coming from the rectum, bleeding has slowed down. He has a rash/raw in the bilateral groin, not sure if it is like a fungal infection. His urine is cloudy in the collection device, he is seeing Urologist today. Needs dilaudid refill, pain is managed. 08/26/19-Seen for acute visit. He went to the ER Sat, he states it felt like something "burst" in the area. CT scan, pt reports, looked like a possible abscess but, there was no pocket to be drained. He was given a Rx for augmentin which he started Monday. The site remains stable, no new sensations, no additional rectal drainage, warm bath makes the pain worse, does get relief when he shifts wt off the site. Last Th he started cycle 2, 3 pills is what is tolerated (oral and skin toxicities). He subsequently presented back to hospital where he underwent I and D with wound vac. His pain medications were adjusted for better control. His Regorafinib was held due to possible delayed wound healing after IandD. 09/18/2019: He feels tired,off regorafinib,he developed an abscess in sacral area,likely from tumor invasion,he is currently on IV anti biotics which will be completed soon,no recurrent bleeding from ostomy,he is on lisinopril for elevated BP while he was on regorafenib,his pelvic pain is under control with fentanyl patch and dilaudid as need. Dr. Conklin recommended to start treatment with palliative XRT to his pelvis concurrently with xeloda. He finally agreed to to it,xeloda already ordered. Discontinue regorafinib, 10/07/19: He now presents to emergency with increased abdominal pain, bloating and distention. On presentation increased LFTs, Total Bili, and Hyponatremic. Abdomen firm and distended Review of Systems A 14 point review of systems assessed and completed and all negative except HPI Past Medical History Past Medical History: Cancer Additional Past Medical History / Comment(s): colorectal - stage IV diagnosed 08/06/18 History of Any Multi-Drug Resistant Organisms: None Reported Past Surgical History: Bowel Resection, Orthopedic Surgery Additional Past Surgical History / Comment(s): right foot surgery, left hand surgery, mediport, perirectal abscess, colostomy, suprapubic cath, abdominal drain Past Anesthesia/Blood Transfusion Reactions: No Reported Reaction Past Psychological History: No Psychological Hx Reported Smoking Status: Never smoker Past Alcohol Use History: None Reported Additional Past Alcohol Use History / Comment(s): Patient states stopped drinking about 12 beers a day 3 years ago. Past Drug Use History: None Reported - Past Family History Mother Family Medical History: Cancer Additional Family Medical History / Comment(s): skin ca Father Family Medical History: Hypertension Medications and Allergies Home Medications Medication Instructions Recorded Confirmed Type HYDROmorphone [Dilaudid] 8 mg PO Q4-6H 09/02/19 10/07/19 History Ibuprofen [Advil] 400 mg PO Q4H 09/02/19 10/07/19 History Lisinopril [Zestril] 20 mg PO DAILY 09/02/19 10/07/19 History fentaNYL 75MCG/HR PATCH [Duragesic 1 patch TRANSDERM Q72H 10/07/19 10/07/19 History 75MCG/HR] Allergies Allergy/AdvReac Type Severity Reaction Status Date / Time codeine AdvReac Nausea & Verified 10/07/19 19:55 Vomiting Physical Exam Vitals: Vital Signs Temp Pulse Pulse Resp BP BP Pulse Ox 10/08/19 15:03 107 H 17 10/08/19 12:22 97.6 F 114 H 17 121/80 95 10/08/19 04:05 98.1 F 105 H 20 122/77 96 10/07/19 19:40 97.9 F 111 H 12 117/79 96 10/07/19 18:00 75 16 119/89 96 Intake and Output 10/08/19 10/08/19 10/08/19 06:59 14:59 22:59 Intake Total 1800 Balance 1800 Intake: Intake, IV Titration 1320 Amount Piperacillin-Tazobactam 3 100 .375 gm In Sodium Chloride 0.9% 100 ml @ 25 mls/hr IVPB Q8H M[facility]EL Rx#: [id number] Sodium Chloride 0.9% 1, 720 000 ml @ 60 mls/hr IV . [id number] MURIEL Rx#:[id number] Sodium Chloride 0.9% 500 500 ml 500 ml @ 999 mls/hr IV .Q31M STA Rx#:[id number] Oral 480 Other: Voiding Method Ileal Conduit (Right) Ileal Conduit (Right) Ileal Conduit (Right) # Voids 4 1 # Bowel Movements 1 Weight 73.4 kg Alert and oriented, NAD Head: NCNT Neck Supple HR: Tachy Lung CTA, diminished bases Abd: Ostomy with output, distended firm Open abscess Ext: mild BLE Skin - Mild Jaundice Results CBC & Chem 7: 10/08/19 06:25 10/08/19 06:25 Labs: Abnormal Lab Results - Last 24 Hours (Table) 10/07/19 10/07/19 10/07/19 Range/Units 15:22 15:37 15:37 WBC 11.8 H (3.8-10.6) k/uL Hgb 11.4 L (13.0-17.5) gm/dL Hct 37.9 L (39.0-53.0) % MCV 78.9 L (80.0-100.0) fL MCH 23.7 L (25.0-35.0) pg MCHC 30.1 L (31.0-37.0) g/dL RDW 16.8 H (11.5-15.5) % Neutrophils # 10.1 H (1.3-7.7) k/uL Lymphocytes # 0.4 L (1.0-4.8) k/uL PT 13.6 H (9.0-12.0) sec INR 1.4 H (<1.2) APTT 21.3 L (22.0-30.0) sec Sodium 127 L (137-145) mmol/L Chloride 92 L (98-107) mmol/L BUN 47 H (9-20) mg/dL Creatinine (0.66-1.25) mg/dL Glucose 123 H (74-99) mg/dL Plasma Lactic Acid Subhash (0.7-2.0) mmol/L Calcium (8.4-10.2) mg/dL Total Bilirubin 5.0 H (0.2-1.3) mg/dL AST 692 H (17-59) U/L ALT 431 H (4-49) U/L Alkaline Phosphatase 448 H (38-126) U/L Albumin 3.0 L (3.5-5.0) g/dL Ur Specific [place] (1.001-1.035) Urine Protein (Negative) Urine Blood (Negative) Urine Bilirubin (Negative) Ur Leukocyte Esterase (Negative) Urine RBC (0-5) /hpf Urine WBC (0-5) /hpf Urine Bacteria (None) /hpf Hyaline Casts (0-2) /lpf 10/07/19 10/07/19 10/07/19 Range/Units 15:37 20:13 22:19 WBC (3.8-10.6) k/uL Hgb (13.0-17.5) gm/dL Hct (39.0-53.0) % MCV (80.0-100.0) fL MCH (25.0-35.0) pg MCHC (31.0-37.0) g/dL RDW (11.5-15.5) % Neutrophils # (1.3-7.7) k/uL Lymphocytes # (1.0-4.8) k/uL PT (9.0-12.0) sec INR (<1.2) APTT (22.0-30.0) sec Sodium (137-145) mmol/L Chloride (98-107) mmol/L BUN (9-20) mg/dL Creatinine (0.66-1.25) mg/dL Glucose (74-99) mg/dL Plasma Lactic Acid Subhash 4.4 H* 4.4 H* (0.7-2.0) mmol/L Calcium (8.4-10.2) mg/dL Total Bilirubin (0.2-1.3) mg/dL AST (17-59) U/L ALT (4-49) U/L Alkaline Phosphatase (38-126) U/L Albumin (3.5-5.0) g/dL Ur Specific [place] 1.049 H (1.001-1.035) Urine Protein 1+ H (Negative) Urine Blood Moderate H (Negative) Urine Bilirubin 1+ H (Negative) Ur Leukocyte Esterase Large H (Negative) Urine RBC 40 H (0-5) /hpf Urine WBC 135 H (0-5) /hpf Urine Bacteria Many H (None) /hpf Hyaline Casts 14 H (0-2) /lpf 10/08/19 10/08/19 Range/Units 06:25 06:25 WBC 11.6 H (3.8-10.6) k/uL Hgb 11.3 L (13.0-17.5) gm/dL Hct 38.2 L (39.0-53.0) % MCV (80.0-100.0) fL MCH 24.1 L (25.0-35.0) pg MCHC 29.6 L (31.0-37.0) g/dL RDW 16.5 H (11.5-15.5) % Neutrophils # 9.4 H (1.3-7.7) k/uL Lymphocytes # 0.6 L (1.0-4.8) k/uL PT (9.0-12.0) sec INR (<1.2) APTT (22.0-30.0) sec Sodium 128 L (137-145) mmol/L Chloride 93 L (98-107) mmol/L BUN 47 H (9-20) mg/dL Creatinine 1.30 H (0.66-1.25) mg/dL Glucose 121 H (74-99) mg/dL Plasma Lactic Acid Subhash (0.7-2.0) mmol/L Calcium 8.3 L (8.4-10.2) mg/dL Total Bilirubin 4.5 H (0.2-1.3) mg/dL AST 621 H (17-59) U/L ALT 395 H (4-49) U/L Alkaline Phosphatase 419 H (38-126) U/L Albumin 2.8 L (3.5-5.0) g/dL Ur Specific [place] (1.001-1.035) Urine Protein (Negative) Urine Blood (Negative) Urine Bilirubin (Negative) Ur Leukocyte Esterase (Negative) Urine RBC (0-5) /hpf Urine WBC (0-5) /hpf Urine Bacteria (None) /hpf Hyaline Casts (0-2) /lpf Microbiology - Last 24 Hours (Table) 10/07/19 22:19 Urine Culture - Preliminary Urine,Suprapubic Assessment and Plan Plan: Assessment and Recommendations: Colorectal Cancer: Stage IV - Received first and second line therapies and now receiving Stivarga - Concern for progressive cancer evidenced with non-healing peristent Abscess - CEA increased on stivarga - Recently was to start Xeloda patient has refused further treatment - Appears to have progressive Liver mets Increased Abdominal Distention and Ascites: - Likely secondary to increased disease burden - Monitor liver function and COags - Paracentesis with Cytology Hyperbilirubinemia and Increased LFTs: - Secondary to Xeloda and likely worsening Metastatic disease - Hold Xeloda Rectal Fistula and abscess: - Difficult to determine infectious versus carcinoma, no cytology sent from recent I and D - Dr. Bennett Following Neoplastic Related pain: - Continue home medications of Fentanyl and PRN Dilaudid PLan: - Paracentesis with Cytology - Patient refusing further oncologic care plan home with hospice at discharge
--- NOTE | 2019-10-08 16:46 | P.PN ---
Subjective Progress Note Date: 10/08/19 This is a 39-year-old gentleman with stage IV colon cancer with metastasis admitted with abdominal distention, pain, increased bili with possible obstructive jaundice and multiple other medical issues. CT reported numerous pulmonary masses, significantly increased compared to prior consistent with metastatic disease, numerous liver metastases consistent with metastatic disease as well, abdominal ascites , new right-sided hydronephrosis and hydroureter .receiving Dilaudid prn in addition to fentanyl. Evaluated by surgery, recommendations noted including potential paracentesis with interventional radi ology. Renal function worsening, creatinine 1.30. Minimal change and TB bili and LFTs. Afebrile. Objective - Vital Signs Vital signs: Vital Signs Temp 97.6 F 10/08/19 12:22 Pulse 107 H 10/08/19 15:03 Resp 17 10/08/19 15:03 BP 121/80 10/08/19 12:22 Pulse Ox 95 10/08/19 12:22 Intake & Output 10/07/19 10/08/19 10/08/19 18:59 06:59 18:59 Intake Total 1800 Balance 1800 Weight 73.028 kg 73.4 kg Intake: Intake, IV Titration 1320 Amount Piperacillin-Tazobactam 3 100 .375 gm In Sodium Chloride 0.9% 100 ml @ 25 mls/hr IVPB Q8H [facility] Rx#: [id number] Sodium Chloride 0.9% 1, 720 000 ml @ 60 mls/hr IV . [id number] [facility]EL Rx#:[id number] Sodium Chloride 0.9% 500 500 ml 500 ml @ 999 mls/hr IV .Q31M STA Rx#:[id number] Oral 480 Other: Voiding Method Ileal Conduit (Right) Ileal Conduit (Right) # Voids 4 1 # Bowel Movements 1 - Exam PHYSICAL EXAM: VITAL SIGNS: As above GENERAL: Sitting up in bed, no acute distress HEENT: Conjunctivae normal. eyes normal. Oral mucosa moist NECK: No JVD. No thyroid enlargement. No LNs CARDIOVASCULAR: S1, S2 regular.. No murmur RESPIRATION: Breath sounds diminished in the bases. No rhonchi or crackles. No bronchial breathing. ABDOMEN: Distended, firm , diffuse tenderness, No guarding. no masses palpable. mid abdominal ostomy bag empty, vent fistula with appliance with flatus, positive bowel sounds. LEGS: No edema. no swelling. Skin: Right buttock/Gluteal fold dressing clean dry and intact. PSYCHIATRY: Alert and oriented X3, mood and affect normal. NERVOUS SYSTEM: Cranial N 2-12 grossly normal. Moves all 4 limbs. No focal deficits. Strength and sensation grossly intact.. - Labs CBC & Chem 7: 10/08/19 06:25 10/08/19 06:25 Labs: Abnormal Lab Results - Last 24 Hours (Table) 10/07/19 10/07/19 10/07/19 Range/Units 15:37 15:37 20:13 WBC (3.8-10.6) k/uL Hgb (13.0-17.5) gm/dL Hct (39.0-53.0) % MCH (25.0-35.0) pg MCHC (31.0-37.0) g/dL RDW (11.5-15.5) % Neutrophils # (1.3-7.7) k/uL Lymphocytes # (1.0-4.8) k/uL PT 13.6 H (9.0-12.0) sec INR 1.4 H (<1.2) APTT 21.3 L (22.0-30.0) sec Sodium (137-145) mmol/L Chloride (98-107) mmol/L BUN (9-20) mg/dL Creatinine (0.66-1.25) mg/dL Glucose (74-99) mg/dL Plasma Lactic Acid Subhash 4.4 H* 4.4 H* (0.7-2.0) mmol/L Calcium (8.4-10.2) mg/dL Total Bilirubin (0.2-1.3) mg/dL AST (17-59) U/L ALT (4-49) U/L Alkaline Phosphatase (38-126) U/L Albumin (3.5-5.0) g/dL Ur Specific [place] (1.001-1.035) Urine Protein (Negative) Urine Blood (Negative) Urine Bilirubin (Negative) Ur Leukocyte Esterase (Negative) Urine RBC (0-5) /hpf Urine WBC (0-5) /hpf Urine Bacteria (None) /hpf Hyaline Casts (0-2) /lpf 10/07/19 10/08/19 10/08/19 Range/Units 22:19 06:25 06:25 WBC 11.6 H (3.8-10.6) k/uL Hgb 11.3 L (13.0-17.5) gm/dL Hct 38.2 L (39.0-53.0) % MCH 24.1 L (25.0-35.0) pg MCHC 29.6 L (31.0-37.0) g/dL RDW 16.5 H (11.5-15.5) % Neutrophils # 9.4 H (1.3-7.7) k/uL Lymphocytes # 0.6 L (1.0-4.8) k/uL PT (9.0-12.0) sec INR (<1.2) APTT (22.0-30.0) sec Sodium 128 L (137-145) mmol/L Chloride 93 L (98-107) mmol/L BUN 47 H (9-20) mg/dL Creatinine 1.30 H (0.66-1.25) mg/dL Glucose 121 H (74-99) mg/dL Plasma Lactic Acid Subhash (0.7-2.0) mmol/L Calcium 8.3 L (8.4-10.2) mg/dL Total Bilirubin 4.5 H (0.2-1.3) mg/dL AST 621 H (17-59) U/L ALT 395 H (4-49) U/L Alkaline Phosphatase 419 H (38-126) U/L Albumin 2.8 L (3.5-5.0) g/dL Ur Specific [place] 1.049 H (1.001-1.035) Urine Protein 1+ H (Negative) Urine Blood Moderate H (Negative) Urine Bilirubin 1+ H (Negative) Ur Leukocyte Esterase Large H (Negative) Urine RBC 40 H (0-5) /hpf Urine WBC 135 H (0-5) /hpf Urine Bacteria Many H (None) /hpf Hyaline Casts 14 H (0-2) /lpf Microbiology - Last 24 Hours (Table) 10/07/19 22:19 Urine Culture - Preliminary Urine,Suprapubic Assessment and Plan Assessment: Stage IV rectal CA with metastasis Abdominal distention with pain, possible ascites, possibly malignant Hyperbilirubin with possible obstructive jaundice secondary to malignancy Hyponatremia Pulmonary metastasis Coagulopathy secondary to liver metastases Anemia microcytic, chronic secondary to malignancy Right-sided hydronephrosis and hydroureter with possibly distal ureteral obstruction per CT Leukocytosis Degenerative joint disease PeriRectal, Right gluteal fold abscess, status post Samreen drainage, infectious disease following Acute renal failure Hyperkalemia Right-sided hydronephrosis secondary to mass infiltration of the right distal ureter Plan: Continue on current medication regime, monitoring and symptomatically treatment. Pain management .Gentle IV fluid hydration. Cultures pending, maintain IV antibiotics as per infectious disease. Follow closely with oncology, surgery and infectious disease. Prognosis guarded given multiple complex medical issues. The impression and plan of care has been dictated as directed. : I performed a history and examination of this patient, discussed the same with the dictator. I agree with the dictator's note ,documented as a scribe. Any additional findings or plans will be noted.
--- NOTE | 2019-10-09 01:05 | P.CONS ---
History of Present Illness - Reason for Consult Consult date: 10/08/19 perirectal abscess Requesting physician: Tad Knight - Chief Complaint abdominal distension x few days - History of Present Illness Patient is a 39-year-old male with a past medical history relevant for metastatic rectal cancer stage IV in this patient status post surgery with diverting colostomy he was recently admitted at this facility and did have a left perirectal/gluteal abscess status post surgical drainage patient did have indwelling Samreen drain which has not been removed patient has completed his antibiotic therapy and is currently being monitored off antibiotics patient presented to [facility] ER yesterday with chief complaints of more abdominal distention that is been getting worse for the last few days he also have some belly pain to normal about 4 to 5-10 and no radiation has been nauseated but no vomiting also noticed to have darker urine and noticed jaundice appearance to his eyes patient did have a low appetite and no significant output through his ostomy with the symptom had the patient was evaluated by the ER physician on arrival to the ER patient has been afebrile white count was mildly at 11.1 urine was positive patient did have a CT of abdominal pelvis completed which shows a worsening of the liver mets also noticed to have a new ascites and pleural effusion compared to previous CT and also left-sided hydroureter and hydronephrosis patient has been started on Zosyn admitted to hospital infectious was consulted with concern for perirectal abscess and infection, the patient continued to have significant pain swelling redness or any significant drainage from his left gluteal site. Review of Systems Positive point has been mentioned in HPI rest of the systems are negative Past Medical History Past Medical History: Cancer Additional Past Medical History / Comment(s): colorectal - stage IV diagnosed 08/06/18 History of Any Multi-Drug Resistant Organisms: None Reported Past Surgical History: Bowel Resection, Orthopedic Surgery Additional Past Surgical History / Comment(s): right foot surgery, left hand surgery, mediport, perirectal abscess, colostomy, suprapubic cath, abdominal drain Past Anesthesia/Blood Transfusion Reactions: No Reported Reaction Past Psychological History: No Psychological Hx Reported Smoking Status: Never smoker Past Alcohol Use History: None Reported Additional Past Alcohol Use History / Comment(s): Patient states stopped drinking about 12 beers a day 3 years ago. Past Drug Use History: None Reported - Past Family History Mother Family Medical History: Cancer Additional Family Medical History / Comment(s): skin ca Father Family Medical History: Hypertension Medications and Allergies Home Medications Medication Instructions Recorded Confirmed Type HYDROmorphone [Dilaudid] 8 mg PO Q4-6H 09/02/19 10/07/19 History Ibuprofen [Advil] 400 mg PO Q4H 09/02/19 10/07/19 History Lisinopril [Zestril] 20 mg PO DAILY 09/02/19 10/07/19 History fentaNYL 75MCG/HR PATCH [Duragesic 1 patch TRANSDERM Q72H 10/07/19 10/07/19 History 75MCG/HR] Allergies Allergy/AdvReac Type Severity Reaction Status Date / Time codeine AdvReac Nausea & Verified 10/07/19 19:55 Vomiting Physical Exam Vitals: Vital Signs Temp Pulse Pulse Resp BP BP Pulse Ox 10/08/19 12:22 97.6 F 114 H 17 121/80 95 10/08/19 04:05 98.1 F 105 H 20 122/77 96 10/07/19 19:40 97.9 F 111 H 12 117/79 96 10/07/19 18:00 75 16 119/89 96 10/07/19 13:56 97.6 F 113 H 18 121/86 97 Intake and Output 10/07/19 10/08/19 10/08/19 22:59 06:59 14:59 Other: Voiding Method Ileal Conduit (Right) Ileal Conduit (Right) # Voids 2 4 Weight 73.028 kg 73.4 kg GENERAL DESCRIPTION: Middle-aged male lying in bed, no distress. No tachypnea or accessory muscle of respiration use. HEENT: Shows Pallor , no scleral icterus. Oral mucous membrane is dry. NECK: Trachea central, no thyromegaly. LUNGS: Unlabored breathing. Clear to auscultation anteriorly. No wheeze or crackle. HEART: S1, S2, regular rate and rhythm. ABDOMEN: Soft, mildly distended ,no tenderness , no guarding or rigidity, left gluteal area did have the Samreen drain but no induration no swelling or any foul-smelling drainage EXTREMITIES: No edema of feet. SKIN: No rash, no masses palpable. NEUROLOGICAL: The patient is awake, alert, oriented x3, mood and affect normal. Results CBC & Chem 7: 10/08/19 06:25 10/08/19 06:25 Labs: Abnormal Lab Results - Last 24 Hours (Table) 10/07/19 10/07/19 10/07/19 Range/Units 15:22 15:37 15:37 WBC 11.8 H (3.8-10.6) k/uL Hgb 11.4 L (13.0-17.5) gm/dL Hct 37.9 L (39.0-53.0) % MCV 78.9 L (80.0-100.0) fL MCH 23.7 L (25.0-35.0) pg MCHC 30.1 L (31.0-37.0) g/dL RDW 16.8 H (11.5-15.5) % Neutrophils # 10.1 H (1.3-7.7) k/uL Lymphocytes # 0.4 L (1.0-4.8) k/uL PT 13.6 H (9.0-12.0) sec INR 1.4 H (<1.2) APTT 21.3 L (22.0-30.0) sec Sodium 127 L (137-145) mmol/L Chloride 92 L (98-107) mmol/L BUN 47 H (9-20) mg/dL Creatinine (0.66-1.25) mg/dL Glucose 123 H (74-99) mg/dL Plasma Lactic Acid Subhash (0.7-2.0) mmol/L Calcium (8.4-10.2) mg/dL Total Bilirubin 5.0 H (0.2-1.3) mg/dL AST 692 H (17-59) U/L ALT 431 H (4-49) U/L Alkaline Phosphatase 448 H (38-126) U/L Albumin 3.0 L (3.5-5.0) g/dL Ur Specific [place] (1.001-1.035) Urine Protein (Negative) Urine Blood (Negative) Urine Bilirubin (Negative) Ur Leukocyte Esterase (Negative) Urine RBC (0-5) /hpf Urine WBC (0-5) /hpf Urine Bacteria (None) /hpf Hyaline Casts (0-2) /lpf 10/07/19 10/07/19 10/07/19 Range/Units 15:37 20:13 22:19 WBC (3.8-10.6) k/uL Hgb (13.0-17.5) gm/dL Hct (39.0-53.0) % MCV (80.0-100.0) fL MCH (25.0-35.0) pg MCHC (31.0-37.0) g/dL RDW (11.5-15.5) % Neutrophils # (1.3-7.7) k/uL Lymphocytes # (1.0-4.8) k/uL PT (9.0-12.0) sec INR (<1.2) APTT (22.0-30.0) sec Sodium (137-145) mmol/L Chloride (98-107) mmol/L BUN (9-20) mg/dL Creatinine (0.66-1.25) mg/dL Glucose (74-99) mg/dL Plasma Lactic Acid Subhash 4.4 H* 4.4 H* (0.7-2.0) mmol/L Calcium (8.4-10.2) mg/dL Total Bilirubin (0.2-1.3) mg/dL AST (17-59) U/L ALT (4-49) U/L Alkaline Phosphatase (38-126) U/L Albumin (3.5-5.0) g/dL Ur Specific [place] 1.049 H (1.001-1.035) Urine Protein 1+ H (Negative) Urine Blood Moderate H (Negative) Urine Bilirubin 1+ H (Negative) Ur Leukocyte Esterase Large H (Negative) Urine RBC 40 H (0-5) /hpf Urine WBC 135 H (0-5) /hpf Urine Bacteria Many H (None) /hpf Hyaline Casts 14 H (0-2) /lpf 10/08/19 10/08/19 Range/Units 06:25 06:25 WBC 11.6 H (3.8-10.6) k/uL Hgb 11.3 L (13.0-17.5) gm/dL Hct 38.2 L (39.0-53.0) % MCV (80.0-100.0) fL MCH 24.1 L (25.0-35.0) pg MCHC 29.6 L (31.0-37.0) g/dL RDW 16.5 H (11.5-15.5) % Neutrophils # 9.4 H (1.3-7.7) k/uL Lymphocytes # 0.6 L (1.0-4.8) k/uL PT (9.0-12.0) sec INR (<1.2) APTT (22.0-30.0) sec Sodium 128 L (137-145) mmol/L Chloride 93 L (98-107) mmol/L BUN 47 H (9-20) mg/dL Creatinine 1.30 H (0.66-1.25) mg/dL Glucose 121 H (74-99) mg/dL Plasma Lactic Acid Subhash (0.7-2.0) mmol/L Calcium 8.3 L (8.4-10.2) mg/dL Total Bilirubin 4.5 H (0.2-1.3) mg/dL AST 621 H (17-59) U/L ALT 395 H (4-49) U/L Alkaline Phosphatase 419 H (38-126) U/L Albumin 2.8 L (3.5-5.0) g/dL Ur Specific [place] (1.001-1.035) Urine Protein (Negative) Urine Blood (Negative) Urine Bilirubin (Negative) Ur Leukocyte Esterase (Negative) Urine RBC (0-5) /hpf Urine WBC (0-5) /hpf Urine Bacteria (None) /hpf Hyaline Casts (0-2) /lpf Microbiology - Last 24 Hours (Table) 10/07/19 22:19 Urine Culture - Preliminary Urine,Suprapubic Assessment and Plan Assessment: 1-patient present to the hospital with abdominal distention with new ascites likely from his metastatic rectal cancer clinically not behaving as a secondary peritonitis or abdominal abscess 2-patient with a recent history of left gluteal abscess that was surgically drained that has been adequately treated as far as infection is concerned is currently no evidence of any inflammation and his left gluteal surgical drainage site (1) Ascites Current Visit: Yes Status: Acute Code(s): R18.8 - OTHER ASCITES SNOMED Code(s): 423111414 (2) Gluteal abscess Current Visit: No Status: Acute Code(s): L02.31 - CUTANEOUS ABSCESS OF BUTTOCK SNOMED Code(s): 02463248 Plan: 1-await paracentesis of the fluid should be sent for cell count differential and culture 2-May continue Zosyn while waiting for the culture to finalize and condition to stabilize We will follow on clinical condition and cultures to further adjust medication if needed Thank you for this consultation we will follow the patient along with you Time with Patient: Greater than 30
[2019-10-09] MEDS: HYDROmorphone 1 MG/ML 1 ML SYRINGE IVP PRN ×2 (01:21→21:28)
[2019-10-09] MEDS: SODIUM CHLORIDE 0.9% 1,000 ML IV SCH (01:23)
[2019-10-09] MEDS: PIPERACILLIN-TAZOBACTAM 3.375 GM in SODIUM CHLORIDE 0.9% 100 ML IVPB SCH ×3 (04:08→21:29)
[2019-10-09] MEDS: PANTOPRAZOLE 40 MG/10 ML VIAL IV SCH (07:30)
[2019-10-09 08:50] LABS: Anisocytosis Slight; Basophils % (A) 0 %; Eosinophils # (A) 0.4 k/uL (0-0.7); Eosinophils % (A) 3 %; HCT 37.9 % (39.0-53.0); HGB 11.2 gm/dL (13.0-17.5); Hypochromasia Marked; Lymphocytes # (A) 0.7 k/uL (1.0-4.8); Lymphocytes % (A) 5 %; MCH 24.2 pg (25.0-35.0); MCHC 29.6 g/dL (31.0-37.0); MCV 81.6 fL (80.0-100.0); Mean Platelet Volume 8.6; Monocytes % (A) 8 %; Neutrophils # (A) 11.2 k/uL (1.3-7.7); Neutrophils % (A) 83 %; Platelet Count 327 k/uL (150-450); Poikilocytosis Slight; RBC 4.64 m/uL (4.30-5.90); RDW 16.8 % (11.5-15.5); WBC 13.5 k/uL (3.8-10.6)
[2019-10-09 08:55] LABS: INR 1.4 (<1.2); Partial Thromboplastin Time 25.9 sec (22.0-30.0); Prothrombin Time 13.9 sec (9.0-12.0)
[2019-10-09 09:03] LABS: Albumin 2.8 g/dL (3.5-5.0); Calcium 8.1 mg/dL (8.4-10.2); Potassium 4.1 mmol/L (3.5-5.1); Total Bilirubin 5.7 mg/dL (0.2-1.3); Total Protein 6.5 g/dL (6.3-8.2)
--- NOTE | 2019-10-09 09:48 | P.PN ---
<Ayed Chau - Last Filed: 10/09/19 09:45> Subjective Progress Note Date: 10/09/19 CHIEF COMPLAINT: Rectal cancer HISTORY OF PRESENT ILLNESS: Patient examined this morning at the bedside. He reports continued abdominal discomfort and distention. He is scheduled for paracentesis today. PHYSICAL EXAM: VITAL SIGNS: Reviewed. GENERAL: Well-developed in no acute distress. HEENT: No sclera icterus. Extraocular movements grossly intact. Moist buccal m ucosa. Head is atraumatic, normocephalic. ABDOMEN: Firm. Distended. Ostomy noted with stool output. NEUROLOGIC: Alert and oriented. Cranial nerves II through XII grossly intact. SKIN: Samreen drain to buttocks noted. ASSESSMENT: 1. Abdominal distention 2. Ascites 3. Stage IV rectal cancer with liver and lung mets PLAN: Patient to undergo paracentesis today by Interventional radiology Oncology on consult. Spoke with MAGALI Mehta, who states plan is for hospice this afternoon No surgical intervention recommended Nurse practitioner note has been reviewed by physician. Signing provider agrees with the documented findings, assessment, and plan of care. Objective - Vital Signs Vital signs: Vital Signs Temp 97.9 F 10/09/19 05:00 Pulse 109 H 10/09/19 05:00 Resp 16 10/09/19 05:00 BP 101/61 10/09/19 05:00 Pulse Ox 97 10/09/19 05:00 Intake & Output 10/08/19 10/09/19 10/09/19 18:59 06:59 18:59 Intake Total 1800 560 Balance 1800 560 Weight 74.7 kg Intake: Intake, IV Titration 1320 560 Amount Piperacillin-Tazobactam 3 100 200 .375 gm In Sodium Chloride 0.9% 100 ml @ 25 mls/hr IVPB Q8H [facility] Rx#: [id number] Sodium Chloride 0.9% 1, 720 360 000 ml @ 60 mls/hr IV . [id number] [facility] Rx#:[id number] Sodium Chloride 0.9% 500 500 ml 500 ml @ 999 mls/hr IV .Q31M [facility] Rx#:[id number] Oral 480 Other: Voiding Method Ileal Conduit (Right) Ileal Conduit (Right) Ileal Conduit (Right) # Voids 1 4 # Bowel Movements 1 - Labs CBC & Chem 7: 10/09/19 08:21 10/09/19 08:21 Labs: Abnormal Lab Results - Last 24 Hours (Table) 10/09/19 10/09/19 10/09/19 Range/Units 08:21 08:21 08:21 WBC 13.5 H (3.8-10.6) k/uL Hgb 11.2 L (13.0-17.5) gm/dL Hct 37.9 L (39.0-53.0) % MCH 24.2 L (25.0-35.0) pg MCHC 29.6 L (31.0-37.0) g/dL RDW 16.8 H (11.5-15.5) % Neutrophils # 11.2 H (1.3-7.7) k/uL Lymphocytes # 0.7 L (1.0-4.8) k/uL PT 13.9 H (9.0-12.0) sec INR 1.4 H (<1.2) Sodium 128 L (137-145) mmol/L Chloride 94 L (98-107) mmol/L BUN 50 H (9-20) mg/dL Creatinine 1.36 H (0.66-1.25) mg/dL Glucose 103 H (74-99) mg/dL Calcium 8.1 L (8.4-10.2) mg/dL Total Bilirubin 5.7 H (0.2-1.3) mg/dL AST 556 H (17-59) U/L ALT 344 H (4-49) U/L Alkaline Phosphatase 417 H (38-126) U/L Albumin 2.8 L (3.5-5.0) g/dL Microbiology - Last 24 Hours (Table) 10/07/19 15:37 Blood Culture - Preliminary Blood No Growth after 24 hours 10/07/19 22:19 Urine Culture - Preliminary Urine,Suprapubic <Lee Arzate - Last Filed: 10/09/19 12:42> Subjective Patient had his paracentesis done today. Resting comfortably at this time. Pain somewhat improved. Plans for home with hospice noted. We'll sign off. Objective - Vital Signs Vital signs: Vital Signs Temp 98.1 F 10/09/19 11:00 Pulse 99 10/09/19 11:40 Resp 12 10/09/19 11:40 BP 102/65 10/09/19 11:40 Pulse Ox 91 L 10/09/19 11:40 Intake & Output 10/08/19 10/09/19 10/09/19 18:59 06:59 18:59 Intake Total 1800 560 Balance 1800 560 Weight 74.7 kg Intake: Intake, IV Titration 1320 560 Amount Piperacillin-Tazobactam 3 100 200 .375 gm In Sodium Chloride 0.9% 100 ml @ 25 mls/hr IVPB Q8H [facility] Rx#: [id number] Sodium Chloride 0.9% 1, 720 360 000 ml @ 60 mls/hr IV . [id number] [facility] Rx#:[id number] Sodium Chloride 0.9% 500 500 ml 500 ml @ 999 mls/hr IV .Q31M [facility] Rx#:[id number] Oral 480 Other: Voiding Method Ileal Conduit (Right) Ileal Conduit (Right) Ileal Conduit (Right) # Voids 1 4 # Bowel Movements 1 - Labs CBC & Chem 7: 10/09/19 08:21 10/09/19 08:21 Labs: Abnormal Lab Results - Last 24 Hours (Table) 10/09/19 10/09/19 10/09/19 Range/Units 08:21 08:21 08:21 WBC 13.5 H (3.8-10.6) k/uL Hgb 11.2 L (13.0-17.5) gm/dL Hct 37.9 L (39.0-53.0) % MCH 24.2 L (25.0-35.0) pg MCHC 29.6 L (31.0-37.0) g/dL RDW 16.8 H (11.5-15.5) % Neutrophils # 11.2 H (1.3-7.7) k/uL Lymphocytes # 0.7 L (1.0-4.8) k/uL PT 13.9 H (9.0-12.0) sec INR 1.4 H (<1.2) Sodium 128 L (137-145) mmol/L Chloride 94 L (98-107) mmol/L BUN 50 H (9-20) mg/dL Creatinine 1.36 H (0.66-1.25) mg/dL Glucose 103 H (74-99) mg/dL Calcium 8.1 L (8.4-10.2) mg/dL Total Bilirubin 5.7 H (0.2-1.3) mg/dL AST 556 H (17-59) U/L ALT 344 H (4-49) U/L Alkaline Phosphatase 417 H (38-126) U/L Albumin 2.8 L (3.5-5.0) g/dL Microbiology - Last 24 Hours (Table) 10/07/19 22:19 Urine Culture - Preliminary Urine,Suprapubic Gram Neg Bacilli 10/07/19 15:37 Blood Culture - Preliminary Blood No Growth after 24 hours
--- NOTE | 2019-10-09 12:59 | P.PN ---
Subjective Progress Note Date: 10/09/19 This is a 39-year-old gentleman with stage IV colon cancer with metastasis admitted with abdominal distention, pain, increased bili with possible obstructive jaundice and multiple other medical issues. CT reported numerous pulmonary masses, significantly increased compared to prior consistent with metastatic disease, numerous liver metastases consistent with metastatic disease as well, abdominal ascites , new right-sided hydronephrosis and hydroureter .receiving Dilaudid prn in addition to fentanyl. Evaluated by surgery, recommendations noted including potential paracentesis with interventional radi ology. Renal function worsening, creatinine 1.30. Minimal change and TB bili and LFTs. Afebrile. 10/09/2019 Parancentesis pending. INR 1.4. Reports no worsening in abdominal discomfort or distention. Afebrile, WBC up to 13.5. Sodium 128. Creatinine trending up ,1.36. Mild tachycardia. Urine culture reporting gram-negative bacilli. Objective - Vital Signs Vital signs: Vital Signs Temp 97.7 F 10/09/19 09:52 Pulse 116 H 10/09/19 10:34 Resp 16 10/09/19 10:34 BP 94/65 10/09/19 10:34 Pulse Ox 97 10/09/19 10:34 Intake & Output 10/08/19 10/09/19 10/09/19 18:59 06:59 18:59 Intake Total 1800 560 Balance 1800 560 Weight 74.7 kg Intake: Intake, IV Titration 1320 560 Amount Piperacillin-Tazobactam 3 100 200 .375 gm In Sodium Chloride 0.9% 100 ml @ 25 mls/hr IVPB Q8H [facility] Rx#: [id number] Sodium Chloride 0.9% 1, 720 360 000 ml @ 60 mls/hr IV . [id number] [facility] Rx#:[id number] Sodium Chloride 0.9% 500 500 ml 500 ml @ 999 mls/hr IV .Q31M [facility] Rx#:[id number] Oral 480 Other: Voiding Method Ileal Conduit (Right) Ileal Conduit (Right) Ileal Conduit (Right) # Voids 1 4 # Bowel Movements 1 - Exam PHYSICAL EXAM: VITAL SIGNS: As above GENERAL: Sitting up in bed, no acute distress HEENT: Conjunctivae normal. eyes normal. NECK: No JVD. No thyroid enlargement. No LNs CARDIOVASCULAR: S1, S2 regular.. No murmur RESPIRATION: Breath sounds diminished in the bases. No rhonchi or crackles. No bronchial breathing. ABDOMEN: Distended, firm , diffuse tenderness, No guarding. no masses palpable. Suprapubic catheter, mid abdominal ostomy bag with stool, vent fistula appliance with flatus, positive bowel sounds. LEGS: No edema. no swelling. Skin: Right buttock/Gluteal fold dressing clean dry and intact. PSYCHIATRY: Alert and oriented X3, mood and affect normal. NERVOUS SYSTEM: Cranial N 2-12 grossly normal. Moves all 4 limbs. No focal deficits. Strength and sensation grossly intact. Microbiology 10/07/19 22:19 Urine,Suprapubic Urine Culture - Preliminary Gram Neg Bacilli 10/07/19 15:37 Blood Blood Culture - Preliminary No Growth after 24 hours - Labs CBC & Chem 7: 10/09/19 08:21 10/09/19 08:21 Labs: Abnormal Lab Results - Last 24 Hours (Table) 10/09/19 10/09/19 10/09/19 Range/Units 08:21 08:21 08:21 WBC 13.5 H (3.8-10.6) k/uL Hgb 11.2 L (13.0-17.5) gm/dL Hct 37.9 L (39.0-53.0) % MCH 24.2 L (25.0-35.0) pg MCHC 29.6 L (31.0-37.0) g/dL RDW 16.8 H (11.5-15.5) % Neutrophils # 11.2 H (1.3-7.7) k/uL Lymphocytes # 0.7 L (1.0-4.8) k/uL PT 13.9 H (9.0-12.0) sec INR 1.4 H (<1.2) Sodium 128 L (137-145) mmol/L Chloride 94 L (98-107) mmol/L BUN 50 H (9-20) mg/dL Creatinine 1.36 H (0.66-1.25) mg/dL Glucose 103 H (74-99) mg/dL Calcium 8.1 L (8.4-10.2) mg/dL Total Bilirubin 5.7 H (0.2-1.3) mg/dL AST 556 H (17-59) U/L ALT 344 H (4-49) U/L Alkaline Phosphatase 417 H (38-126) U/L Albumin 2.8 L (3.5-5.0) g/dL Microbiology - Last 24 Hours (Table) 10/07/19 15:37 Blood Culture - Preliminary Blood No Growth after 24 hours 10/07/19 22:19 Urine Culture - Preliminary Urine,Suprapubic Assessment and Plan Assessment: Stage IV rectal CA with metastasis Abdominal distention with pain, ascites, possibly malignant, diagnostic, therapeutic paracentesis pending Hyperbilirubin with possible obstructive jaundice secondary to malignancy Acute UTI with gram-negative bacilli Hyponatremia Pulmonary metastasis Coagulopathy secondary to liver metastases Anemia microcytic, chronic secondary to malignancy Right-sided hydronephrosis and hydroureter with possibly distal ureteral obstruction per CT Leukocytosis Degenerative joint disease PeriRectal, Right gluteal fold abscess, status post Samreen drainage, infectious disease following Acute renal failure Hyperkalemia Right-sided hydronephrosis secondary to mass infiltration of the right distal ureter Plan: Continue on current medication regime, monitoring and symptomatically treatment. Pain management . Diagnostic/therapeutic Paracentesis pending. Cultures pending, maintain IV antibiotics as per infectious disease. Prognosis guarded given multiple complex medical issues. The impression and plan of care has been dictated as directed. : I performed a history and examination of this patient, discussed the same with the dictator. I agree with the dictator's note ,documented as a scribe. Any additional findings or plans will be noted.
--- NOTE | 2019-10-09 15:05 | US ---
Ultrasound-guided paracentesis. DATE OF EXAM: 10/09/2019 CLINICAL HISTORY: Ascites The procedure was discussed with the patient. The risks, complications, benefits, and alternatives we re discussed and any questions were answered. Informed consent was obtained. The patient was placed s upine on the ultrasound table and prepped and draped in the usual sterile fashion. All elements of maximal barrier technique were utilized. Under ultrasound guidance, access into the right lower quadrant was obtained, via the paracentesis catheter system and direct ultrasound guidanc e. Approximately 2.5 liters of straw-colored fluid was removed. The patient was stable throughout the pr ocedure and remained stable upon discharge from Department of Radiology. IMPRESSION: Successful paracentesis under ultrasound guidance.
--- NOTE | 2019-10-09 16:17 | PN ---
PROGRESS NOTE DATE OF SERVICE: 10/09/2019 REASON FOR FOLLOWUP: Abdominal ascites and left gluteal wound. INTERVAL HISTORY: The patient is currently afebrile. The patient is status post paracentesis done by Interventional Radiology with removal of 2.5 L of straw-colored fluid. The patient tolerated the procedure. Abdominal pain and distention seemed to have improved. No chest pain, shortness of breath or cough. PHYSICAL EXAMINATION: Blood pressure is 94/64 with a pulse of 90, temperature 98, he is 93% on room air. General description is a middle-aged male, lying in bed in no distress. RESPIRATORY SYSTEM: Unlabored breathing, clear to auscultation anteriorly. HEART: S1, S2. Regular rate and rhythm. ABDOMEN: Soft, no tenderness. LABS: Hemoglobin 11.1, white count of 13.5, BUN of 50, creatinine 1.36. Unfortunately, the peritoneal fluid has not been sent for analysis. DIAGNOSTIC IMPRESSION AND PLAN: 1. Patient with ascites, more likely from his metastatic cancer. Clinic suspicion low for a bacterial peritonitis, on empiric Zosyn to continue while waiting for the culture to finalize. 2. Elevated white count, possible reactive. Will monitor closely. Continue supportive care. MMODL / IJN: [id number] /
--- NOTE | 2019-10-09 17:17 | P.PN ---
<Janine Toribio - Last Filed: 10/09/19 17:11> Subjective Progress Note Date: 10/09/19 Principal diagnosis: Metastatic progressive colon cancer Planm for paracentesis today, patient is a little confused today. Objective - Vital Signs Vital signs: Vital Signs Temp 98.1 F 10/09/19 11:00 Pulse 98 10/09/19 14:36 Resp 12 10/09/19 16:00 BP 94/64 10/09/19 14:36 Pulse Ox 93 L 10/09/19 14:36 Intake & Output 10/08/19 10/09/19 10/09/19 18:59 06:59 18:59 Intake Total 1800 560 540 Balance 1800 560 540 Weight 74.7 kg Intake: Intake, IV Titration 1320 560 340 Amount Piperacillin-Tazobactam 3 100 200 100 .375 gm In Sodium Chloride 0.9% 100 ml @ 25 mls/hr IVPB Q8H [facility] Rx#: [id number] Sodium Chloride 0.9% 1, 720 360 240 000 ml @ 60 mls/hr IV . [id number] [facility] Rx#:[id number] Sodium Chloride 0.9% 500 500 ml 500 ml @ 999 mls/hr IV .Q31M [facility] Rx#:[id number] Oral 480 200 Other: Voiding Method Ileal Conduit (Right) Ileal Conduit (Right) Ileal Conduit (Right) # Voids 1 4 2 # Bowel Movements 1 - Exam Alert and oriented, NAD chronically ill Head: NCNT Neck Supple HR: Tachy Lung CTA, diminished bases Abd: Ostomy with output, distended firm Open abscess Ext: mild BLE Skin - Mild Jaundice - Labs CBC & Chem 7: 10/09/19 08:21 10/09/19 08:21 Labs: Abnormal Lab Results - Last 24 Hours (Table) 10/09/19 10/09/19 10/09/19 Range/Units 08:21 08:21 08:21 WBC 13.5 H (3.8-10.6) k/uL Hgb 11.2 L (13.0-17.5) gm/dL Hct 37.9 L (39.0-53.0) % MCH 24.2 L (25.0-35.0) pg MCHC 29.6 L (31.0-37.0) g/dL RDW 16.8 H (11.5-15.5) % Neutrophils # 11.2 H (1.3-7.7) k/uL Lymphocytes # 0.7 L (1.0-4.8) k/uL PT (9.0-12.0) sec INR (<1.2) Sodium 128 L (137-145) mmol/L Chloride 94 L (98-107) mmol/L BUN 50 H (9-20) mg/dL Creatinine 1.36 H (0.66-1.25) mg/dL Glucose 103 H (74-99) mg/dL Calcium 8.1 L (8.4-10.2) mg/dL Total Bilirubin 5.7 H (0.2-1.3) mg/dL AST 556 H (17-59) U/L ALT 344 H (4-49) U/L Alkaline Phosphatase 417 H (38-126) U/L Albumin 2.8 L (3.5-5.0) g/dL Carcinoembryonic Ag 3493.6 H (0.0-4.9) ng/mL 10/09/19 Range/Units 08:21 WBC (3.8-10.6) k/uL Hgb (13.0-17.5) gm/dL Hct (39.0-53.0) % MCH (25.0-35.0) pg MCHC (31.0-37.0) g/dL RDW (11.5-15.5) % Neutrophils # (1.3-7.7) k/uL Lymphocytes # (1.0-4.8) k/uL PT 13.9 H (9.0-12.0) sec INR 1.4 H (<1.2) Sodium (137-145) mmol/L Chloride (98-107) mmol/L BUN (9-20) mg/dL Creatinine (0.66-1.25) mg/dL Glucose (74-99) mg/dL Calcium (8.4-10.2) mg/dL Total Bilirubin (0.2-1.3) mg/dL AST (17-59) U/L ALT (4-49) U/L Alkaline Phosphatase (38-126) U/L Albumin (3.5-5.0) g/dL Carcinoembryonic Ag (0.0-4.9) ng/mL Microbiology - Last 24 Hours (Table) 10/07/19 22:19 Urine Culture - Preliminary Urine,Suprapubic Gram Neg Bacilli 10/07/19 15:37 Blood Culture - Preliminary Blood No Growth after 24 hours Assessment and Plan Plan: Assessment and Recommendations: Colorectal Cancer: Stage IV - Received first and second line therapies and now receiving Stivarga - Concern for progressive cancer evidenced with non-healing peristent Abscess - CEA increased on stivarga - Recently was to start Xeloda patient has refused further treatment - Appears to have progressive Liver mets Increased Abdominal Distention and Ascites: - Likely secondary to increased disease burden - Monitor liver function and Coags - Paracentesis with Cytology Hyperbilirubinemia and Increased LFTs: - Secondary to Xeloda and likely worsening Metastatic disease - Hold Xeloda Rectal Fistula and abscess: - Difficult to determine infectious versus carcinoma, no cytology sent from recent I and D - Dr. Bennett Following Neoplastic Related pain: - Continue home medications of Fentanyl and PRN Dilaudid Plan: - Paracentesis with Cytology - Patient refusing further oncologic care plan home with hospice at discharge <Mary Carmen,Ramses - Last Filed: 10/09/19 22:32> Subjective add: Eval post paracentesis. Pt feels better Objective - Vital Signs Vital signs: Vital Signs Temp 97.2 F L 10/09/19 21:24 Pulse 120 H 10/09/19 21:24 Resp 18 10/09/19 21:24 BP 107/69 10/09/19 21:24 Pulse Ox 96 10/09/19 21:24 Intake & Output 10/09/19 10/09/19 10/10/19 06:59 18:59 06:59 Intake Total 560 540 Balance 560 540 Weight 74.7 kg Intake: Intake, IV Titration 560 340 Amount Piperacillin-Tazobactam 3 200 100 .375 gm In Sodium Chloride 0.9% 100 ml @ 25 mls/hr IVPB Q8H [facility] Rx#: [id number] Sodium Chloride 0.9% 1, 360 240 000 ml @ 60 mls/hr IV . [id number] [facility] Rx#:[id number] Oral 200 Other: Voiding Method Ileal Conduit (Right) Ileal Conduit (Right) # Voids 4 2 - Exam Add; Abd softer post paracentesis - Labs CBC & Chem 7: 10/09/19 08:21 10/09/19 08:21 Labs: Abnormal Lab Results - Last 24 Hours (Table) 10/09/19 10/09/19 10/09/19 Range/Units 08:21 08:21 08:21 WBC 13.5 H (3.8-10.6) k/uL Hgb 11.2 L (13.0-17.5) gm/dL Hct 37.9 L (39.0-53.0) % MCH 24.2 L (25.0-35.0) pg MCHC 29.6 L (31.0-37.0) g/dL RDW 16.8 H (11.5-15.5) % Neutrophils # 11.2 H (1.3-7.7) k/uL Lymphocytes # 0.7 L (1.0-4.8) k/uL PT (9.0-12.0) sec INR (<1.2) Sodium 128 L (137-145) mmol/L Chloride 94 L (98-107) mmol/L BUN 50 H (9-20) mg/dL Creatinine 1.36 H (0.66-1.25) mg/dL Glucose 103 H (74-99) mg/dL Calcium 8.1 L (8.4-10.2) mg/dL Total Bilirubin 5.7 H (0.2-1.3) mg/dL AST 556 H (17-59) U/L ALT 344 H (4-49) U/L Alkaline Phosphatase 417 H (38-126) U/L Albumin 2.8 L (3.5-5.0) g/dL Carcinoembryonic Ag 3493.6 H (0.0-4.9) ng/mL 10/09/19 Range/Units 08:21 WBC (3.8-10.6) k/uL Hgb (13.0-17.5) gm/dL Hct (39.0-53.0) % MCH (25.0-35.0) pg MCHC (31.0-37.0) g/dL RDW (11.5-15.5) % Neutrophils # (1.3-7.7) k/uL Lymphocytes # (1.0-4.8) k/uL PT 13.9 H (9.0-12.0) sec INR 1.4 H (<1.2) Sodium (137-145) mmol/L Chloride (98-107) mmol/L BUN (9-20) mg/dL Creatinine (0.66-1.25) mg/dL Glucose (74-99) mg/dL Calcium (8.4-10.2) mg/dL Total Bilirubin (0.2-1.3) mg/dL AST (17-59) U/L ALT (4-49) U/L Alkaline Phosphatase (38-126) U/L Albumin (3.5-5.0) g/dL Carcinoembryonic Ag (0.0-4.9) ng/mL Microbiology - Last 24 Hours (Table) 10/07/19 15:37 Blood Culture - Preliminary Blood No Growth after 48 hours 10/07/19 22:19 Urine Culture - Preliminary Urine,Suprapubic Gram Neg Bacilli Assessment and Plan Plan: Add: Pt wants to go home, but undecided about Hospice again. He has decided that he does not want more treatment. I had a detailed discussion with re his end of life goals - mainly being able to stay at home , with family, and be comfortable. He was advised that Hospice would be very beneficial in facilitating the same. Without their assistance, the pt would be at increased risk of poor symptoms control, and repeat hospitalizations. All his questions were answered to the best of my ability. He was ultimately agreeable to hospice, but does not want to wait for an inpt consult.He would rather go home tonight. He has fentanyl and Dilaudid at home. That is acceptable from my standpt. The office will request Hospice consult in Am to f/u with the pt at home. D/W Aracelis. They will contact Dr Ulises farias this
[2019-10-09 21:25] VITALS: BP 107/69; PULSE 120; RESP 18; TEMP 97.2
== END 2019-10-09 23:15 | disposition home or self-care (01) | DRG 947 ==
LOC: EC 13:46 → 5NMEDONC 18:20
PROVIDERS: ADMIT Family Medicine; ATTEND Family Medicine
PROC: 0W9G3ZX Drainage of Peritoneal Cavity, Percutaneous Approach, Diagnostic (ICD-10-PCS; principal; 2019-10-09)
DX: R18.8 Other ascites (principal); K83.1 Obstruction of bile duct; D68.4 Acquired coagulation factor deficiency; C78.7 Secondary malignant neoplasm of liver and intrahepatic bile duct; C19 Malignant neoplasm of rectosigmoid junction; C78.00 Secondary malignant neoplasm of unspecified lung; E87.1 Hypo-osmolality and hyponatremia; N13.1 Hydronephrosis with ureteral stricture, not elsewhere classified; K61.1 Rectal abscess; N17.9 Acute kidney failure, unspecified; J90 Pleural effusion, not elsewhere classified; Z93.3 Colostomy status; Z11.59 Encounter for screening for other viral diseases; G89.3 Neoplasm related pain (acute) (chronic); B35.6 Tinea cruris; E86.0 Dehydration; D72.829 Elevated white blood cell count, unspecified; M54.5 Low back pain; M54.2 Cervicalgia; D50.9 Iron deficiency anemia, unspecified; E87.5 Hyperkalemia; K59.00 Constipation, unspecified; M19.90 Unspecified osteoarthritis, unspecified site; Z79.1 Long term (current) use of non-steroidal anti-inflammatories (NSAID); Z79.891 Long term (current) use of opiate analgesic; Z79.899 Other long term (current) drug therapy; Z90.49 Acquired absence of other specified parts of digestive tract; Z98.890 Other specified postprocedural states; Z88.5 Allergy status to narcotic agent; Z80.8 Family history of malignant neoplasm of other organs or systems; Z82.49 Family history of ischemic heart disease and other diseases of the circulatory system
CPT/HCPCS: 36415; 49083; 74177; 80053; 81001; 82150; 82378; 83605; 83690; 85025; 85610; 85730; 86850; 86900; 86901; 87040; 87077; 87086; 87186; 87635; 88108; 88305; 88341; 88342; 93005; 96361; 96374; 96375; 99285